=== PATIENT | female | born 1950 | race Caucasian/White ===

== ENCOUNTER 2017-04-30 11:24 | Inpatient (IN) | payer OTHER, BC ==
--- NOTE | 2017-04-30 11:46 | CPEKG ---
Heart Rate: 109 RR Interval: 550 P-R Interval: 160 QRSD Interval: 108 QT Interval: 332 QTC Interval: 448 P [place]: -37 QRS [place]: -62 T Wave [place]: 88 EKG Severity - ABNORMAL ECG - EKG Impression: SINUS TACHYCARDIA EKG Impression: ATRIAL PREMATURE COMPLEX EKG Impression: INCOMPLETE RBBB AND LAFB Electronically Signed By: Basia Palacios 30-Apr-2017 15:20:40
[2017-04-30 11:57] LABS: % IMMATURE GRANULYOCYTES 0.5 % (0.0-1.1); ABSOLUTE IMMATURE GRANULOCYTES 0.07 10^3/uL (0.00-0.10); ADD DIFF? NO; ADD MORPH? NO; ADD SCAN? NO; ATYPICAL LYMPHOCYTE FLAG 0 (0-99); FRAGMENT RBC FLAG 0 (0-99); HEMATOCRIT 45.6 % (38.0-47.0); HEMOGLOBIN 15.6 g/dL (12.6-16.3); LEFT SHIFT FLG 0 (0-99); LIPEMIA HEMOLYSIS FLAG 90 (0-99); MEAN CELL HEMOGLOBIN 30.9 pg (27.9-34.1); MEAN CELL HEMOGLOBIN CONCENTR. 34.2 g/dL (32.4-36.7); MEAN CELL VOLUME 90.3 fL (81.5-99.8); MEAN PLATELET VOLUME 10.6 fL (8.7-11.7); PLATELET CLUMPS FLAG 20 (0-99); PLATELET COUNT 233 10^3/uL (150-400); RED BLOOD CELL COUNT 5.05 10^6/uL (4.18-5.33); RED CELL DISTRIBUTION WIDTH 13.6 % (11.5-15.2)
[2017-04-30 12:10] LABS: ANION GAP 14 mEq/L (8-16); CALCIUM 9.4 mg/dL (8.5-10.4); CARBON DIOXIDE 24 mEq/l (22-31); CHLORIDE 102 mEq/L (97-110); CREATININE 1.5 mg/dL (0.6-1.0); GLOMERULAR FILTRATION RATE 35; GLUCOSE 94 mg/dL (70-100); POTASSIUM 4.3 mEq/L (3.5-5.2); SODIUM 140 mEq/L (134-144)
[2017-04-30 12:33] LABS: TROPONIN I 0.037 ng/mL (0.000-0.034)
--- NOTE | 2017-04-30 13:06 | EDPHY ---
H & P Time Seen by Provider: 04/30/17 12:39 HPI/ROS: CHIEF COMPLAINT: Multiple complaints HISTORY OF PRESENT ILLNESS: Patient is a 67-year-old female who presents emergency department multiple complaints. Patient states her symptoms started approximately 3 weeks ago. She attempts to lift her and developed right lateral/flank pain. It is worse with movement. It is slowly improved. Over the past 3 days is worsened. It is increased with movement. She is unable to bend over. When she bent over she stated she became nauseated and vomited. Of note, the patient reports that her on April 24. Since that time she has had no bowel movement. She has felt as though she has had abdominal discomfort from her "breast to her pelvis. "Last night she had multiple episodes of diarrhea. This did not improve her discomfort. Patient complains of a chronic longstanding headache. She also complains of neck pain. Patient states that when she takes a deep breath she has a sharp pain on the right flank. She has had no dysuria or frequency. No fevers or chills. REVIEW OF SYSTEMS: My complete review of systems is negative except as mentioned in the HPI. Past Medical/Surgical History: Includes renal insufficiency, diabetes, intestinal polyps, ectopic Past surgical history: Includes cholecystectomy, lymph node dissection, tonsillectomy, shoulder surgery Social history: The patient's on April 24. She does not smoke. Smoking Status: Former smoker Physical Exam: Vitals slurred. 37.1. The patient is hypertensive at 170/86. GENERAL: No acute distress, alert. HEENT: Eyes normal to inspection, normal pharynx, no signs of dehydration. NECK: No thyromegaly, no lymphadenopathy, supple. RESPIRATORY: Clear to auscultation bilaterally, no rales, rhonchi or wheezing. CVS: Regular rate and rhythm, no rubs, murmurs, or gallops. No chest wall abnormality. No rash. She does have tenderness palpation over her right lateral ribs. No crepitus. ABDOMEN: Soft, nontender, nondistended, no organomegaly. No abdominal wall abnormality. No rash. BACK: Normal to inspection, no CVA tenderness. SKIN: Normal color, no rash, warm, dry. No pallor. EXTREMITIES: No pedal edema, no calf tenderness, no Homans sign or cords, no joint swelling. NEURO/PSYCH: Alert and oriented, normal mood and affect, normal motor sensory exam. Constitutional: Initial Vital Signs Temperature (C) 37.0 C 04/30/17 11:29 Heart Rate 93 04/30/17 11:29 Respiratory Rate 20 04/30/17 11:29 O2 Sat (%) 88 L 04/30/17 11:29 O2 Delivery Mode Room Air Allergies/Adverse Reactions: Sulfa (Sulfonamide Antibiotics) Allergy (Severe, Verified 11/20/13 16:52) Rash CANDIED FRUIT IN SPUMONI Allergy (Severe, Uncoded 08/28/12 10:14) Other-Enter Comments Home Medications: Medication Instructions Recorded Allopurinol [Allopurinol 300 MG 300 mg PO DAILY 09/11/12 (RX)] Aspirin [Aspirin 81mg (OTC)] 81 mg PO HS 09/11/12 Furosemide [Lasix 20 MG (RX)] 20 mg PO DAILY 09/11/12 Lovastatin [Mevacor] 40 mg PO HS 09/11/12 Nateglinide [Starlix] 60 mg PO TIDMEAL 09/11/12 Cholecalciferol Vit D3 [Vitamin D3 1,000 units PO DAILY 04/30/17 (*)] Cyanocobalamin [Vitamin B12 (*)] 1,000 mcg PO DAILY 04/30/17 Insulin Glargine,Hum.rec.anlog 25 unit SQ DAILY 04/30/17 [Basaglar Kwikpen U-100] Insulin Glargine,Hum.rec.anlog 51 unit SQ HS 04/30/17 [Basaglar Kwikpen U-100] Insulin Lispro [humALOG LISPRO 100 7 - 10 unit SC TIDMEAL 04/30/17 units/ml (*)] Lisinopril [Zestril 2.5 mg (*)] 2.5 mg PO DAILY 04/30/17 Medical Decision Making - Diagnostics Imaging Results: Imaging Impressions Chest X-Ray 04/30/17 13:12 Impression: Bilateral pulmonary vascular prominence, possible early congestive failure or circulating hypervolemia.. ED Course/Re-evaluation: In the emergency department I discussed possible etiologies with the patient. I answered all her questions. IV was placed. Laboratory studies, EKG and chest x-ray were ordered. Patient was given Zofran 4 mg IV for nausea. She was given normal saline 1 L IV for hydration. She was given morphine 4 mg IV for pain. EKG: Sinus tachycardia 109. Incomplete right bundle-branch block and left anterior fascicular block. No ST or T-wave abnormality. Reviewed the patient's laboratory studies. Of note her white count was mildly elevated. She is not anemic. Chemistry panel is unremarkable. Patient's troponin is elevated at 0.37. D-dimer is pending. I discussed the results with the patient. Answered all her questions. I paged the hospitalist service. Chest x-ray: Please refer the dictated report. It is pending at this time. Reviewed the images. A large heart with poor inspiratory effort. No obvious infiltrate. 1335: I discussed case with Dr. Melchor. He accepts the patient to the hospitalist service. The patient was noted to have an elevated D-dimer of greater than 3. Because of this is CT angiogram was ordered. I discussed this plan with Dr. Chavez. Differential Diagnosis: My differential includes but is not limited to zoster, musculoskeletal strain, pneumonia, bronchitis, pulmonary embolus, pleurisy, kidney stone, pyelonephritis , urinary tract infection, small-bowel obstruction, perforation, constipation - Data Points Laboratory Results: Laboratory Results 04/30/17 11:50 04/30/17 11:50 04/30/17 04/30/17 04/30/17 11:50 11:50 11:50 WBC 14.04 10^3/uL H 10^3/uL (3.80-9.50) RBC 5.05 10^6/uL 10^6/uL (4.18-5.33) Hgb 15.6 g/dL g/dL (12.6-16.3) Hct 45.6 % % (38.0-47.0) MCV 90.3 fL fL (81.5-99.8) MCH 30.9 pg pg (27.9-34.1) MCHC 34.2 g/dL g/dL (32.4-36.7) RDW 13.6 % % (11.5-15.2) Plt Count 233 10^3/uL 10^3/uL (150-400) MPV 10.6 fL fL (8.7-11.7) Neut % (Auto) 74.7 % H % (39.3-74.2) Lymph % (Auto) 17.2 % % (15.0-45.0) [place] % (Auto) 7.1 % % (4.5-13.0) Eos % (Auto) 0.1 % L % (0.6-7.6) Baso % (Auto) 0.4 % % (0.3-1.7) Nucleat RBC Rel Count 0.0 % % (0.0-0.2) Absolute Neuts (auto) 10.48 10^3/uL H 10^3/uL (1.70-6.50) Absolute Lymphs (auto) 2.42 10^3/uL 10^3/uL (1.00-3.00) Absolute Monos (auto) 1.00 10^3/uL H 10^3/uL (0.30-0.80) Absolute Eos (auto) 0.01 10^3/uL L 10^3/uL (0.03-0.40) Absolute Basos (auto) 0.06 10^3/uL 10^3/uL (0.02-0.10) Absolute Nucleated RBC 0.00 10^3/uL 10^3/uL (0-0.01) Immature Gran % 0.5 % % (0.0-1.1) Immature Gran # 0.07 10^3/uL 10^3/uL (0.00-0.10) D-Dimer 3.49 ug/mLFEU H ug/mLFEU (0.00-0.50) Sodium 140 mEq/L mEq/L (134-144) Potassium 4.3 mEq/L mEq/L (3.5-5.2) Chloride 102 mEq/L mEq/L (97-110) Carbon Dioxide 24 mEq/l mEq/l (22-31) Anion Gap 14 mEq/L mEq/L (8-16) BUN 18 mg/dL mg/dL (7-23) Creatinine 1.5 mg/dL H mg/dL (0.6-1.0) Estimated GFR 35 Glucose 94 mg/dL mg/dL (70-100) Calcium 9.4 mg/dL mg/dL (8.5-10.4) Troponin I 0.037 ng/mL H ng/mL (0.000-0.034) Specimen Hemolysis Departure - Departure Disposition: Home, Routine, Self-Care Clinical Impression: Right flank pain Chest pain Qualifiers: Chest pain type: other chest pain Qualified Code(s): R07.89 - Other chest pain Condition: Good
[2017-04-30] MEDS ORDERED: IOPAMIDOL (ISOVUE 370) 100 ML BTL IV ONE (15:24)
--- NOTE | 2017-04-30 15:33 | ASMTCMCOM ---
CM Note CM Note Notes: Patient admitted for right flank pain, chest pain, neck pain, abdominal pain, N/V, constipation and diarrhea, and various other symptoms. Per chart review patient reports her symptoms started about 3 weeks ago when she tried to lift her and had right flank pain. Of note, patient's 04/24/17. Pt has a daughter Soina who appears to live locally. Exact DC needs unknown, CM to follow. Date Signed: 04/30/2017 03:33 PM Electronically Signed By:Miracle Mandel RN
[2017-04-30] MEDS ORDERED: hydrALAZINE 20 MG/ML VIAL IVP PRN (16:08)
[2017-04-30] MEDS ORDERED: ACETAMINOPHEN 325 MG TAB PO PRN (16:09)
--- NOTE | 2017-04-30 16:28 | PDGENHP ---
History and Physical - Chief Complaint difficulty taking a deep breath - History of Present Illness This is obese 67 yo female with MMP and poor follow up who is a poor historian who is presented with right rib and flank pain worse with inspiration and difficulty taking a deep breath. This started 3-6 weeks ago and has been progressive. She does not have any substernal chest pain. Her April 24 and she had been taken care of him and due to the she has not followed up for her medical care. 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 Mercado but does not think she has seen him since 2013. Upon review of records it looks like it was diagnosed in 2012. She reports constipation yesterday but take several stool softners last night. She had several episodes of diarrhea. Her LEs are covered in stool and she did not realize this. She reports a hx of Chronic renal failure with unclear etiology. She has been afebrile. She does not have a cough. She is mildly hypoxic. She says she does not use supplemental O2. In the E.D., Cr is 1.5 which is her baseline. Trop is slightly elevated. D- Dimer is elevated. EKG has an incomplete RBBB. CXR shows pulm vascular congestion Most of history obtained from extensive review of chart PMHx: Gout, HLD, Nocturnal Hypoxemia, CRI (baseline 1.5), DM, HTN, HLD, [place] Lymphoma, IDDM, HTN, tubular adenoma at ileocecal valve PSHx: Laparotomy for ectopic , left shoulder surgery, tonsillectomy, cholecystectomy, lymph node dissection Soc Hx: No Tobacco (former tobacco), No ETOH, No Illicit FmHx: NC History Information - Allergies/Home Medication List Allergies/Adverse Reactions: Sulfa (Sulfonamide Antibiotics) Allergy (Severe, Verified 11/20/13 16:52) Rash CANDIED FRUIT IN SPUMONI Allergy (Severe, Uncoded 08/28/12 10:14) Other-Enter Comments Home Medications: Allopurinol [Allopurinol 300 MG (RX)] 300 mg PO DAILY 09/11/12 [Last Taken 04/30] Aspirin [Aspirin 81mg (OTC)] 81 mg PO HS 09/11/12 [Last Taken 04/29/17] Furosemide [Lasix 20 MG (RX)] 20 mg PO DAILY 09/11/12 [Last Taken 04/30/17] Lovastatin [Mevacor] 40 mg PO HS 09/11/12 [Last Taken 04/29/17] Nateglinide [Starlix] 60 mg PO TIDMEAL 09/11/12 [Last Taken 04/30/17] Cholecalciferol Vit D3 [Vitamin D3 (*)] 1,000 units PO DAILY 04/30/17 [Last Taken 04/29/17] Cyanocobalamin [Vitamin B12 (*)] 1,000 mcg PO DAILY 04/30/17 [Last Taken ] Insulin Glargine,Hum.rec.anlog [Basaglar Kwikpen U-100] 25 unit SQ DAILY [Last Taken 04/30/17] Insulin Glargine,Hum.rec.anlog [Basaglar Kwikpen U-100] 51 unit SQ HS 04/30/17 [ Last Taken 04/29/17] Insulin Lispro [humALOG LISPRO 100 units/ml (*)] 7 - 10 unit SC TIDMEAL [Last Taken 04/29/17] Lisinopril [Zestril 2.5 mg (*)] 2.5 mg PO DAILY 04/30/17 [Last Taken 04/30/17] I have personally reviewed and updated: medical history, social history - Social History Smoking Status: Former smoker Review of Systems Review of Systems: ROS: 10pt was reviewed & negative except for what was stated in HPI & below Physical Exam Physical Exam: Temp Pulse Resp BP Pulse Ox 37.2 C 83 11 L 164/96 H 91 L 04/30/17 15:44 04/30/17 15:44 04/30/17 15:44 04/30/17 15:44 04/30/17 15:44 O2 (L/minute) 2 Constitutional: no apparent distress Eyes: PERRL, EOMI Ears, Nose, Mouth, Throat: moist mucous membranes, hearing normal Cardiovascular: regular rate and rhythym, edema (1+), No JVD Respiratory: no respiratory distress, rhonchi Gastrointestinal: normoactive bowel sounds, soft, non-tender abdomen Skin: warm Neurologic: AAOx3 Psychiatric: interacting appropriately, encephalopathic, poor insight, poor memory Lab Data & Imaging Review 04/30/17 11:50 04/30/17 11:50 WBC 14.04 10^3/uL (3.80-9.50) H 04/30/17 11:50 RBC 5.05 10^6/uL (4.18-5.33) 04/30/17 11:50 Hgb 15.6 g/dL (12.6-16.3) 04/30/17 11:50 Hct 45.6 % (38.0-47.0) 04/30/17 11:50 MCV 90.3 fL (81.5-99.8) 04/30/17 11:50 MCH 30.9 pg (27.9-34.1) 04/30/17 11:50 MCHC 34.2 g/dL (32.4-36.7) 04/30/17 11:50 RDW 13.6 % (11.5-15.2) 04/30/17 11:50 Plt Count 233 10^3/uL (150-400) 04/30/17 11:50 MPV 10.6 fL (8.7-11.7) 04/30/17 11:50 Neut % (Auto) 74.7 % (39.3-74.2) H 04/30/17 11:50 Lymph % (Auto) 17.2 % (15.0-45.0) 04/30/17 11:50 [place] % (Auto) 7.1 % (4.5-13.0) 04/30/17 11:50 Eos % (Auto) 0.1 % (0.6-7.6) L 04/30/17 11:50 Baso % (Auto) 0.4 % (0.3-1.7) 04/30/17 11:50 Nucleat RBC Rel Count 0.0 % (0.0-0.2) 04/30/17 11:50 Absolute Neuts (auto) 10.48 10^3/uL (1.70-6.50) H 04/30/17 11:50 Absolute Lymphs (auto) 2.42 10^3/uL (1.00-3.00) 04/30/17 11:50 Absolute Monos (auto) 1.00 10^3/uL (0.30-0.80) H 04/30/17 11:50 Absolute Eos (auto) 0.01 10^3/uL (0.03-0.40) L 04/30/17 11:50 Absolute Basos (auto) 0.06 10^3/uL (0.02-0.10) 04/30/17 11:50 Absolute Nucleated RBC 0.00 10^3/uL (0-0.01) 04/30/17 11:50 Immature Gran % 0.5 % (0.0-1.1) 04/30/17 11:50 Immature Gran # 0.07 10^3/uL (0.00-0.10) 04/30/17 11:50 D-Dimer 3.49 ug/mLFEU (0.00-0.50) H 04/30/17 11:50 Sodium 140 mEq/L (134-144) 04/30/17 11:50 Potassium 4.3 mEq/L (3.5-5.2) 04/30/17 11:50 Chloride 102 mEq/L (97-110) 04/30/17 11:50 Carbon Dioxide 24 mEq/l (22-31) 04/30/17 11:50 Anion Gap 14 mEq/L (8-16) 04/30/17 11:50 BUN 18 mg/dL (7-23) 04/30/17 11:50 Creatinine 1.5 mg/dL (0.6-1.0) H 04/30/17 11:50 Estimated GFR 35 04/30/17 11:50 Glucose 94 mg/dL (70-100) 04/30/17 11:50 Calcium 9.4 mg/dL (8.5-10.4) 04/30/17 11:50 Troponin I 0.037 ng/mL (0.000-0.034) H 04/30/17 11:50 NT-Pro-B Natriuret Pep 1490 pg/mL (0-125) H 04/30/17 11:50 Specimen Hemolysis 04/30/17 11:50 Assessment & Plan Assessment: #Dyspnea/Hypoxemia #Right rib pain #Indeterminate troponin #Volume overload with pulm vascular congestion and pedal edema #Leukocytois #Chronic renal failure at baseline #Hx of NH lymphoma #Hx of tubular adenoma #Diarrhea, medication induced #Encephalopathy, unclear baseline #IDDM, type II #HLD Plan: -Admission, inpatient -She has refused CTA because she reports that she has been told that she should never have one due to her CRF. She has asked me to get in touch with her Obstetrical Tech Dr. Sanchez. I have called them and spoke with Dr. Pruett who recommends that she get the CTA to r/o P.E. Her risk for contrast nephropathy is 14% which is the same risk for a pt who is a diabetic and does not have renal disease. Her risk for needing dialysis due to contrast nephropathy is 0.2% . She is considering getting the scan. -Serial enzymes, check TTE. Hold off on additional cardiac w/u pending results and CTA chest -She needs Lasix. She is stable from a pulm standpoint and low dose will be scheduled after CT scan. She likely will need more Lasix but want to ensure we have a repeat BMP tomorrow morning after CTA is done. A review of her records show that she has been Lasix dependent previously. Unclear if there is a hx of CHF -Leukocytosis noted, no indication for abx for now. UA is pending, ordered by the E.D. she does not have CVA tenderness. She has no urinary sx's. She is afebrile -Home Insulin and ISS. Check A1C -Check other risk factor, lipid panel -Check for C-Diff. No stool softners for now -I have not consulted Onc. She may need consultation inpatient pending results of CTA. -Heparin for DVT proph, pending CTA results -Full Code total time of care is 90 minutes
[2017-04-30] MEDS ORDERED: D50W 25 GM/50 ML SYR IVP PRN (16:42)
--- NOTE | 2017-04-30 17:05 | PDMN ---
Medical Necessity Medical necessity: C/M review: est. > 2 MN LOS for eval and TX of acute and persistent dyspnea, hypoxemia, right rid pain, indeterminate troponin, leukocytosis requiring planned echocardiogram, chest CTA, serial cardiac enzymes, ongoing cardiac monitoring, acute inpt PT/OT, comorbid chronic renal failure at baseline, encephalopathy, insulin dependent diabetes, hyperlipidemia , medication induced diarrhea, hx of non Hodgkins lymphoma, tubular adenoma per 04/30/2017 Hospitalist progress note.
[2017-04-30] MEDS: oxyCODONE IR 5 MG TAB PO PRN ×3 (17:08→23:35)
[2017-04-30] MEDS ORDERED: HEPARIN 10,000 UNIT/10 ML MDV IVP ONE (17:19)
[2017-04-30] MEDS ORDERED: HEPARIN 10,000 UNIT/10 ML MDV IVP PRN (17:19)
[2017-04-30 17:59] LABS: % IMMATURE GRANULYOCYTES 0.4 % (0.0-1.1); ABSOLUTE IMMATURE GRANULOCYTES 0.05 10^3/uL (0.00-0.10); ADD DIFF? NO; ADD MORPH? NO; ADD SCAN? NO; ATYPICAL LYMPHOCYTE FLAG 0 (0-99); FRAGMENT RBC FLAG 0 (0-99); HEMATOCRIT 43.5 % (38.0-47.0); HEMOGLOBIN 14.7 g/dL (12.6-16.3); LEFT SHIFT FLG 0 (0-99); LIPEMIA HEMOLYSIS FLAG 90 (0-99); MEAN CELL HEMOGLOBIN 30.9 pg (27.9-34.1); MEAN CELL HEMOGLOBIN CONCENTR. 33.8 g/dL (32.4-36.7); MEAN CELL VOLUME 91.6 fL (81.5-99.8); MEAN PLATELET VOLUME 10.7 fL (8.7-11.7); PLATELET CLUMPS FLAG 20 (0-99); PLATELET COUNT 226 10^3/uL (150-400); RED BLOOD CELL COUNT 4.75 10^6/uL (4.18-5.33); RED CELL DISTRIBUTION WIDTH 13.5 % (11.5-15.2)
[2017-04-30] MEDS: INSULIN LISPRO 100 UNIT/ML SC SCH (18:35)
[2017-04-30] MEDS: HEPARIN/DEXTROSE 500 ML IV SCH (18:35)
[2017-04-30 18:41] LABS: APTT 29.2 SEC (23.0-38.0); INR 1.09 (0.83-1.16)
[2017-04-30] MEDS: ASPIRIN 81 MG CHEWABLE TAB PO SCH (20:27)
[2017-04-30] MEDS: PRAVASTATIN SODIUM 40 MG TAB PO SCH (20:27)
[2017-04-30] MEDS ORDERED: [UNRECOGNIZED DRUG - OTHER] SQ SCH (21:00)
[2017-04-30] MEDS ORDERED: LOVASTATIN 40 MG PO SCH (21:00)
[2017-04-30] MEDS ORDERED: INSULIN GLARGINE HUM REC ANLOG SQ SCH (21:00)
[2017-04-30] MEDS ORDERED: FUROSEMIDE 20 MG/2 ML VIAL IVP ONE (21:04)
[2017-04-30] MEDS: INSULIN GLARGINE 100 UNITS/ML SYRINGE SC SCH (21:54)
[2017-04-30] MEDS ORDERED: HEPARIN 5,000 UNIT/0.5 ML SYR SC SCH (22:00)
[2017-05-01] MEDS: ONDANSETRON 4 MG/2 ML VIAL IVP PRN ×2 (03:40→14:29)
[2017-05-01] MEDS: oxyCODONE IR 5 MG TAB PO PRN ×2 (03:48→20:55)
[2017-05-01 05:29] LABS: % IMMATURE GRANULYOCYTES 0.7 % (0.0-1.1); ADD DIFF? NO; ADD MORPH? NO; ADD SCAN? NO; ATYPICAL LYMPHOCYTE FLAG 0 (0-99); FRAGMENT RBC FLAG 0 (0-99); HEMATOCRIT 44.3 % (38.0-47.0); HEMOGLOBIN 14.5 g/dL (12.6-16.3); LEFT SHIFT FLG 10 (0-99); LIPEMIA HEMOLYSIS FLAG 80 (0-99); MEAN CELL HEMOGLOBIN 30.7 pg (27.9-34.1); MEAN CELL HEMOGLOBIN CONCENTR. 32.7 g/dL (32.4-36.7); MEAN CELL VOLUME 93.7 fL (81.5-99.8); MEAN PLATELET VOLUME 11.1 fL (8.7-11.7); PLATELET CLUMPS FLAG 0 (0-99); PLATELET COUNT 212 10^3/uL (150-400); RED BLOOD CELL COUNT 4.73 10^6/uL (4.18-5.33); RED CELL DISTRIBUTION WIDTH 13.9 % (11.5-15.2)
[2017-05-01 05:52] LABS: TROPONIN I 0.026 ng/mL (0.000-0.034)
[2017-05-01 06:15] LABS: ANION GAP 16 mEq/L (8-16); CALCIUM 8.5 mg/dL (8.5-10.4); CARBON DIOXIDE 18 mEq/l (22-31); CHLORIDE 103 mEq/L (97-110); CHOLESTEROL 144 mg/dL (140-220); CHOLESTEROL/HDL RATIO 3.06 RATIO (1.00-4.44); CREATININE 1.8 mg/dL (0.6-1.0); GLOMERULAR FILTRATION RATE 28; GLUCOSE 145 mg/dL (70-100); HIGH DENSITY LIPOPROTEIN 47 mg/dL (40-85); LDL/HDL RATIO 1.34 RATIO (1.00-3.22); LOW DENSITY LIPOPROTEIN 63 mg/dL (80-100); NON-HIGH DENSITY LIPOPROTEIN 97 mg/dL (90-129); POTASSIUM 4.3 mEq/L (3.5-5.2); SODIUM 137 mEq/L (134-144); TRIGLYCERIDE 174 mg/dL (35-135); VERY LOW DENSITY LIPOPROTEINS 34 mg/dL (8-25)
[2017-05-01] MEDS: INSULIN LISPRO 100 UNIT/ML SC SCH ×3 (08:24→17:23)
[2017-05-01] MEDS ORDERED: INSULIN GLARGINE HUM REC ANLOG 25 UNIT SQ SCH (09:00)
[2017-05-01] MEDS ORDERED: LISINOPRIL 2.5 MG TAB PO SCH (09:00)
[2017-05-01] MEDS ORDERED: [UNRECOGNIZED DRUG - OTHER] SQ SCH (09:00)
[2017-05-01] MEDS ORDERED: WARFARIN SODIUM 5 MG TAB PO ONE (09:17)
[2017-05-01 09:47] LABS: HEMOGLOBIN A1C 8.8 % (4.0-6.0)
[2017-05-01] MEDS: CYANO/VITAMIN B12 1000 MCG TAB PO SCH (09:52)
[2017-05-01] MEDS: CHOLECALCIFEROL VIT D3 1,000 UNITS TAB PO SCH (09:53)
[2017-05-01] MEDS: ALLOPURINOL 300 MG TAB PO SCH (09:53)
[2017-05-01] MEDS: HEPARIN/DEXTROSE 500 ML IV SCH ×2 (09:56→22:47)
--- NOTE | 2017-05-01 10:54 | ECHO ---
[email or web address] [address] [address] Main: [phone] Fax: Transthoracic Echocardiogram Name: SHARON LLANOS MR#: [id number] Study Date: 05/01/2017 Study Time: 07:46 AM Date of : 1950 Age: 67 year(s) Height: 170.2 cm (67 in.) Weight: 125.19 kg (276 lb.) BSA: 2.32 m2 Gender: Female Examination: Echo Indication: Shortness of breath, CP, Question CHF Image Quality: Contrast: Requested by: Eliceo Chavez BP: 166 mmHg/93 mmHg Heart Rate: Rhythm: Indication: Shortness of breath, CP, Question CHF Procedure 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 Normal global systolic LV function. EF is 65 %. Trivial mitral valve regurgitation. Trivial to mild tricuspid valve regurgitation. Measurements: Chambers Valvular Assessment AV/MV Valvular Assessment TV/PV Normal Normal Normal Name Value Range Name Value Range Name Value Range Ao Sarah (MM): 3.3 cm (2.2 cm-3.7 AV Vmax: 1.75 m/s (1 m/s-1.7 TR Vmax: 3.37 mm/s ( - ) cm) m/s) TR PGmax: 45 mmHg ( - ) IVSd (2D): 1.6 cm (0.6 cm-1.1 AV maxP mmHg ( - ) syst. PAP: 50 mmHg ( - ) cm) LVOT Vmax: 1.10 m/s (0.7 m/s-1.1 PV Vmax: 0.91 m/s (0.6 m/s-0.9 LVDd (2D): 4.6 cm (3.9 cm-5.3 m/s) m/s) cm) MV E Vmax: 1.07 m/s ( - ) PV PGmax: 3 mmHg ( - ) LVDs (2D): 2.9 cm (2.1 cm-4 MV A Vmax: 1.21 m/s ( - ) cm) MV E/A: 0.88 ( - ) LVPWd (2D): 1.2 cm ( - ) LVEF (2D): 65 (>=54 %) Continued Measurements: Chambers Valvular Assessment AV/MV Valvular Assessment TV/PV Name Value Name Value Name Value LADs Lon.6 cm MV E/E' Septal: 18.00 CVP (est.): 5 mmHg LA Area: 21.9 cm2 MV E/E' Lateral: 16.90 LA Volume: 78 ml LA Volume Index: 33.6 ml/m2 Patient: SHARON LLANOS Study Date: 05/01/2017 Page 1 of 2 07:46 AM Findings: Left Ventricle: Normal size left ventricle. Mild concentric LV hypertrophy. Normal global systolic LV function. EF is 65 %. Diastolic dysfunction is present. . Septal wall motion is suggestive of a bundle branch block.. Right Ventricle: Normal size right ventricle. Left Atrium: The left atrium is mildly dilated. Right Atrium: The right atrium is normal in size. Mitral Valve: Mild mitral valve leaflet calcification is present. Trivial mitral valve regurgitation. Aortic Valve: The aortic valve is tri-leaflet. Mild aortic cusp calcification is noted. There is no aortic valve regurgitation. Tricuspid Valve: Trivial to mild tricuspid valve regurgitation. The pulmonary artery pressure is moderately increased. Pulmonic Valve: The pulmonic valve is normal in appearance and function. Aorta: The aorta is normal. Pericardium: No pericardial effusion. There is pericardial fat. Exam Comments: (No Signature Object) Patient: SHARON LLANOS Study Date: 05/01/2017 Page 2 of 2 07:46 AM [id number]
[2017-05-01] MEDS: ALBUTEROL 3 ML DEYVIAL IH PRN (11:14)
[2017-05-01] MEDS: INSULIN GLARGINE 100 UNITS/ML SYRINGE SC SCH ×2 (11:25→22:45)
[2017-05-01] MEDS ORDERED: NS 1,000 ML IV SCH (15:15)
[2017-05-01] MEDS: WARFARIN SODIUM 5 MG TAB PO SCH (16:01)
[2017-05-01 16:05] LABS: COLOR AMBER; LEUKOCYTE ESTERASE,URINE TRACE (NEGATIVE); NITRITE,URINE NEGATIVE (NEGATIVE)
[2017-05-01 16:09] LABS: MUCUS TRACE /lpf (NONE-1+); WBC,URINE 25-50 /hpf (0-3)
--- NOTE | 2017-05-01 17:31 | HOSPPROG ---
Hospitalist Progress Note Assessment/Plan: Assessment: 67-year-old female presents with acute pulmonary embolism secondary to acute deep venous thrombosis resulting in acute hypoxic respiratory failure Plan: 1. Pulmonary embolism. Present on admission, acute, bilateral, secondary to deep venous thrombosis -systemic anticoagulation warranted, heparin drip indicated given her chronic kidney disease -given 10 mg of loading dose Coumadin today, 5 mg thereafter, monitor INR -will require inpatient hospitalization until her INR is therapeutic -she remains substantially symptomatic, continue working with physical therapy 2. Acute hypoxic respiratory failure. Evidenced by SpO2 82% on 5 L nasal cannula, up titrated to 8 L nasal cannula, with symptomatic shortness of breath , labored breathing, secondary to PE -continue treatment for pulmonary embolism -continue high-flow oxygen 3. Deep venous thrombosis. Present on admission, acute, bilateral lower extremities on ultrasound, likely secondary to obesity -continue systemic anticoagulation as above 4. Pleural effusion. Acute, right-sided, likely secondary to IV fluids received in the setting of above, monitor respiratory status closely 5. Atelectasis. Acute, give incentive spirometer 6. Acute encephalopathy. Evidenced by global brain dysfunction characterized as somnolence, poor concentration, all of which are an acute change from her baseline, unclear whether this is secondary to metabolic acidosis versus infection -get urinalysis, urine culture -continue monitor white blood cell count -get procalcitonin to eval for infection -get renal ultrasound to eval for pyelonephritis 7. Metabolic acidosis. Acute, get arterial blood gas to ensure that there is not any significant respiratory component -give trial of IV fluids, normal saline 100 cc/hour, overnight and gauge effect on serum chemistry in a.m. 8. Morbid obesity. BMI 43, increases risk of worsening morbidity and/or mortality 9. Chronic kidney disease stage 3. Serum creatinine level 1.8 and rising, provide some IV normal saline in the setting of recent contrast study, monitor renal function closely Diet. Regular Prophylaxis. High risk patient, on therapeutic heparin Code. Full Disposition. Anticipated discharge uncertain, requiring ongoing IV heparin drip. Subjective: Patient reports of breath with any level of activity, somnolent Objective: Vital Signs Temp Pulse Resp BP Pulse Ox 36.6 C 109 H 17 135/71 H 82 L 05/01/17 12:00 05/01/17 17:25 05/01/17 12:00 05/01/17 12:00 05/01/17 17:25 Laboratory Results 05/01/17 04:30 05/01/17 04:30 04/30/17 05/01/17 05/02/17 05:59 05:59 05:59 Intake Total 400 1118 Output Total 500 650 Balance -100 468 PT 14.0 SEC (12.0-15.0) 04/30/17 17:51 INR 1.09 (0.83-1.16) 04/30/17 17:51 - Physical Exam Constitutional: no apparent distress, chronically ill appearing, obese, uncomfortable Cardiovascular: tachycardia, edema (Trace bilateral lower extremity), No systolic murmur, No irregularly irregular Respiratory: reduced air movement (Poor inspiratory effort), inspiratory crackles (Bilateral bases), No expiratory wheeze, No bronchial breath sounds Neurologic: AAOx3, sensation intact bilaterally, No weakness (Motor strength 5/ 5 bilateral lower extremities) Psychiatric: not anxious, flat affect, other (Concentration 4/7, somnolent but arousable to voice), No agitated ICD10 Worksheet Patient Problems: Problems Problem Status Onset Chest pain Acute Right flank pain Acute
[2017-05-01 18:17] LABS: BICARBONATE 25 mEq/L (22-26); MEASURED OXYGEN SATURATION 91 % (92-95); PCO2 46 mmHg (34-38); PO2 62 mmHg (65-75); TCO2 26 mEq/L (23-27)
[2017-05-01] MEDS ORDERED: NALOXONE HCL 0.4 MG/ML INJ IVP ONE (19:39)
[2017-05-01] MEDS: PRAVASTATIN SODIUM 40 MG TAB PO SCH (20:44)
[2017-05-01] MEDS: ASPIRIN 81 MG CHEWABLE TAB PO SCH (20:44)
[2017-05-02] MEDS: oxyCODONE IR 5 MG TAB PO PRN ×2 (03:45→21:10)
[2017-05-02] MEDS: ALBUTEROL 3 ML DEYVIAL IH PRN (04:12)
[2017-05-02 04:41] LABS: % IMMATURE GRANULYOCYTES 0.5 % (0.0-1.1); ABSOLUTE IMMATURE GRANULOCYTES 0.06 10^3/uL (0.00-0.10); ADD DIFF? NO; ADD MORPH? NO; ADD SCAN? NO; ATYPICAL LYMPHOCYTE FLAG 10 (0-99); FRAGMENT RBC FLAG 0 (0-99); HEMATOCRIT 39.2 % (38.0-47.0); LEFT SHIFT FLG 0 (0-99); LIPEMIA HEMOLYSIS FLAG 80 (0-99); MEAN CELL HEMOGLOBIN 30.5 pg (27.9-34.1); MEAN CELL HEMOGLOBIN CONCENTR. 33.2 g/dL (32.4-36.7); MEAN PLATELET VOLUME 10.9 fL (8.7-11.7); PLATELET CLUMPS FLAG 0 (0-99); PLATELET COUNT 215 10^3/uL (150-400); RED BLOOD CELL COUNT 4.26 10^6/uL (4.18-5.33); RED CELL DISTRIBUTION WIDTH 13.9 % (11.5-15.2)
[2017-05-02 05:10] LABS: INR 1.16 (0.83-1.16); PROTIME(PATIENT) 14.8 SEC (12.0-15.0)
[2017-05-02 05:25] LABS: ANION GAP 12 mEq/L (8-16); CALCIUM 8.4 mg/dL (8.5-10.4); CARBON DIOXIDE 24 mEq/l (22-31); CHLORIDE 99 mEq/L (97-110); CREATININE 1.9 mg/dL (0.6-1.0); GLOMERULAR FILTRATION RATE 26; GLUCOSE 169 mg/dL (70-100); POTASSIUM 4.4 mEq/L (3.5-5.2); SODIUM 135 mEq/L (134-144)
[2017-05-02 05:50] LABS: PROCALCITONIN 0.56 ng/mL (0.02-0.10)
[2017-05-02] MEDS ORDERED: CARVEDILOL 3.125 MG TAB PO ONE (09:03)
[2017-05-02] MEDS: INSULIN LISPRO 100 UNIT/ML SC SCH ×3 (09:27→17:01)
[2017-05-02] MEDS: INSULIN GLARGINE 100 UNITS/ML SYRINGE SC SCH ×2 (09:28→21:11)
[2017-05-02] MEDS ORDERED: FUROSEMIDE 100 MG/10 ML VIAL IVP ONE (09:29)
[2017-05-02] MEDS: CHOLECALCIFEROL VIT D3 1,000 UNITS TAB PO SCH (09:29)
[2017-05-02] MEDS: CYANO/VITAMIN B12 1000 MCG TAB PO SCH (09:30)
[2017-05-02] MEDS: ALLOPURINOL 300 MG TAB PO SCH (09:30)
[2017-05-02] MEDS ORDERED: FUROSEMIDE 80 MG in D5W 50 ML IV ONE (09:45)
[2017-05-02] MEDS: HEPARIN/DEXTROSE 500 ML IV SCH (12:18)
--- NOTE | 2017-05-02 14:52 | HOSPPROG ---
Hospitalist Progress Note Assessment/Plan: Assessment: 67-year-old female presents with acute pulmonary embolism secondary to acute deep venous thrombosis resulting in acute hypoxic respiratory failure c/b UTI Plan: 1. Pulmonary embolism. Present on admission, acute, bilateral, secondary to deep venous thrombosis -systemic anticoagulation warranted, heparin drip indicated given her chronic kidney disease -cont coumadin 5mg daily, monitor INR -will require inpatient hospitalization until her INR is therapeutic -she remains substantially symptomatic, continue working with physical therapy 2. Acute hypoxic respiratory failure. Evidenced by SpO2 82% on 5 L nasal cannula, up titrated to 8 L nasal cannula, with symptomatic shortness of breath , labored breathing, secondary to PE -continue treatment for pulmonary embolism -continue high-flow oxygen at 5LPM 3. Deep venous thrombosis. Present on admission, acute, bilateral lower extremities on ultrasound, likely secondary to obesity -continue systemic anticoagulation as above 4. Pleural effusion and acute diastolic CHF exacerbation. Acute worsening, new problem, further w/u indicated. CXR w/ increase in size (personally interpreted) , right-sided, likely secondary to IV fluids received in the setting of JOHNNY, monitor respiratory status closely -d/w Dr. Juarez, he recommends lasix 80mg IV now, monitor strict I/O -Echo w/ preserved EF, LVH, mod increased pulm pressure 5. Atelectasis. Acute, given incentive spirometer 6. Acute encephalopathy. Resolved s/p IV Abx, likely 2/2 toxic effects of infxn , ABG w/o significant hypercapnea 7. Metabolic acidosis. Acute, resolved 8. Morbid obesity. BMI 43, increases risk of worsening morbidity and/or mortality 9. JOHNNY on Chronic kidney disease stage 3. Serum creatinine level 1.9 and rising , baseline Cr 1.3-1.7 -appreciate Dr. Juarez's consultation -stopped IVF s/p 2.5L intake, given 80 IV lasix 10. UTI. Acute, POA, UA positive + leukocytosis + abd sx -D#2/5 CTX -monitor UCx/BCx Diet. Regular Prophylaxis. High risk patient, on therapeutic heparin Code. Full Disposition. Anticipated discharge uncertain, requiring ongoing IV heparin drip. High-level of medical complexity, high risk for worsening morbidity and/or mortality secondary to the issues outlined above. Subjective: patient more alert today, ongoing SOB w/ any activity, ongoing nausea Objective: Vital Signs Temp Pulse Resp BP Pulse Ox 37.6 C 75 13 166/77 H 95 05/02/17 12:00 05/02/17 12:00 05/02/17 12:00 05/02/17 12:00 05/02/17 12:00 Laboratory Results 05/02/17 04:15 05/01/17 05/02/17 05/03/17 05:59 05:59 05:59 Intake Total 400 3948 Output Total 500 1350 Balance -100 2598 PT 14.8 SEC (12.0-15.0) 05/02/17 04:15 INR 1.16 (0.83-1.16) 05/02/17 04:15 - Physical Exam Constitutional: no apparent distress, chronically ill appearing, obese, uncomfortable Cardiovascular: edema (trace bilat LE), No systolic murmur, No irregularly irregular, No tachycardia Respiratory: reduced air movement (R base), inspiratory crackles (mid posterior segs), other (+ aegophony R base), No expiratory wheeze, No bronchial breath sounds Gastrointestinal: normoactive bowel sounds, soft, non-tender abdomen, no palpable masses, No distension Neurologic: AAOx3, sensation intact bilaterally, No weakness (motor 5/5 bilat LE ) Psychiatric: interacting appropriately, not anxious, not encephalopathic, thought process linear ICD10 Worksheet Patient Problems: Problems Problem Status Onset Chest pain Acute Right flank pain Acute
[2017-05-02 15:11] LABS: EOSINOPHIL STAIN LOT NUMBER 519210; EOSMR EOSINOPHILS NO EOS SEEN (NO EOS SEEN)
[2017-05-02] MEDS: WARFARIN SODIUM 5 MG TAB PO SCH (15:32)
--- NOTE | 2017-05-02 15:37 | ASMTCMCOM ---
CM Note CM Note Notes: 05/02/2017 Case Management Note Case Management met w/pt and friend Geovani. Pt is recent . [place] approximately 2 weeks ago. Pt daughter Cinthia works at [employer] and can be reached at [phone]. Daughter Sonia lives in [place] [phone]. Daughter in law works as supervisor offset plate preparation at [employer] in [place]. PT requested referral to [place]. She anticipates that daughter Sonia will drive her to [place] at d/c. Discussed prohibitive cost of medical transport to [place]. Faxed referral to [facility] as well in case [place] does not accept patient. Phone call from [place] notifying of receipt of referral. Case Management d/c poc: To SNF rehab pending acceptance when medically stable. Case Management to follow. Date Signed: 05/02/2017 03:36 PM Electronically Signed By:Mariama Tillman RN
[2017-05-02 15:57] LABS: ANION GAP 10 mEq/L (8-16); CALCIUM 8.6 mg/dL (8.5-10.4); CARBON DIOXIDE 25 mEq/l (22-31); CHLORIDE 96 mEq/L (97-110); CREATININE 1.7 mg/dL (0.6-1.0); GLOMERULAR FILTRATION RATE 30; GLUCOSE 225 mg/dL (70-100); POTASSIUM 4.7 mEq/L (3.5-5.2); SODIUM 131 mEq/L (134-144)
[2017-05-02] MEDS: CARVEDILOL 3.125 MG TAB PO SCH (17:00)
[2017-05-02 19:42] LABS: ANION GAP 11 mEq/L (8-16); CALCIUM 8.5 mg/dL (8.5-10.4); CARBON DIOXIDE 23 mEq/l (22-31); CHLORIDE 96 mEq/L (97-110); CREATININE 1.8 mg/dL (0.6-1.0); GLOMERULAR FILTRATION RATE 28; GLUCOSE 221 mg/dL (70-100); POTASSIUM 4.5 mEq/L (3.5-5.2); SODIUM 130 mEq/L (134-144)
--- NOTE | 2017-05-02 21:08 | GCON ---
[f rep st] CONSULTATION NEPHROLOGY CONSULTATION DATE OF CONSULTATION: 05/02/2017 REASON FOR CONSULTATION: Acute kidney injury on chronic kidney disease. HISTORY OF PRESENT ILLNESS: This is a pleasant 67-year-old female with a past medical history signif icant for acute kidney injury, chronic kidney disease, diabetes, hypertension, and history of non-Hod gkin's lymphoma, who now presents with DVTs, thromboembolism, and acute kidney injury. History is ob tained from the patient, who is a good historian, along with the electronic medical record. The anamika ent is cared for by my partner, Dr. Haylee Sanchez, related to her chronic kidney disease. Appears that her baseline creatinine is in the mid 1s. The patient has had some notable recent issues. First, she did lose her approximately 1 week ago, and is clearly still grieving this event. She did present with rib and flank pain that was ple uritic in nature. She states that it started 3-6 weeks ago, and has been progressively worsening. S he also had approximately 2 days of fairly severe diarrhea. The patient presented to the emergency r oom, where there were concerns for potential thromboembolic disease. The patient did have bilateral DVTs noted on duplex ultrasound, and CT angiogram showed multiple bilateral pulmonary emboli. The pa tient was placed on anticoagulation. Appropriate concerns were taken related to the potential use of contrast in the face of her chronic kidney disease, but it was believed to be in her best interest t o proceed with the contrast study. Since her admission, she has received significant IV fluids. Yesterday's intake and output were appr oximately 4 L in and 1,400 mL out. As of today, her systolic blood pressure is 200, she is requiring oxygen, and her chest x-ray does show congestive heart failure. There have been concerns for oligur ia, but I am having some difficulty interpreting the medical record relating to this. Presently, the patient is quite comfortable. She denies any acute distress, and she is saturating ad equately on nasal cannula. She is not feeling dyspneic. In 2011, the patient presented with severe renal failure requiring short-term dialysis. A renal biop sy was obtained, which showed a vascular ATN. She recovered, and ultimately her creatinine at that t dain was in the low 1s. The patient states that her blood pressure has been under good control. Othe r medical issues including diabetes also seem to have been managed reasonably well. The patient has been maintained on AMELIA inhibition. As relating to the above issues, we are asked by Dr. Cabrera to assist with her renal diagnosis and adilson perales. PAST MEDICAL HISTORY: 1. History of acute kidney injury requiring dialysis in 2011. 2. Chronic kidney disease. Followed by Dr. Haylee Sanchez of [facility]. 3. Gout. 4. Diabetes mellitus. 5. Nocturnal hypoxemia. 6. Hypertension. 7. Non-Hodgkin's lymphoma. 8. History of tubular adenoma of the colon at the ileocecal valve. PAST SURGICAL HISTORY: 1. Laparotomy for ectopic . 2. Left shoulder surgery. 3. Tonsillectomy. 4. Cholecystectomy. 5. Lymph node dissection. MEDICATIONS: Allopurinol 3 mg daily. Aspirin 81 mg daily. Lasix 20 mg daily. Lovastatin 40 mg rod ly. Starlix 60 mg t.i.d. times daily. Cholecalciferol 1,000 units daily. Vitamin B12 daily. Lantu s insulin as prescribed. Glargine insulin as prescribed. Lispro insulin as prescribed. Zestril 2.5 mg daily. FAMILY HISTORY: Noncontributory. SOCIAL HISTORY: The patient is originally from [place]. She is recently . 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 She also worked for [email or web address]. She has 3 children. Some lives in the area. She has a remote smoking history. She only very rarely drinks alcohol. REVIEW OF SYSTEMS: GENERAL: The patient denies fevers, chills, or sweats. She was having a headach e yesterday, but it is gone. HEENT: She does have cataracts and a detached retina. I cannot get a specific history of diabetic retinopathy. She has had some chronic rhinitis. She has a sore throat. LUNGS: She has had some shortness of breath and right posterior thoracic pain on deep inspiration. She denies left-sided chest pain. CARDIAC: She has coronary calcifications, but no known history of coronary artery disease. ABDOMEN: She denies overt abdominal pain. She did have diarrhea for 2 days prior to this admission. She has a history of a tubular adenoma. : She denies dysuria. EXT REMITIES: She has some chronic lower extremity edema. NEURO: She has neuropathy in her feet. SKIN : She denies skin rashes or skin lesions. ENDOCRINE: She denies a history of thyroid disease. PHYSICAL EXAM: GENERAL: At the time of exam, the patient is appropriate and alert. VITAL SIGNS: T emperature 38.1, pulse 94, blood pressure 202/81. HEENT: Eyes sclerae clear. Oropharynx clear. NE CK: Obese. I had a difficult time assessing jugular venous distention. No thyromegaly is noted. L UNGS: Diminished at the bases. CARDIOVASCULAR: Soft heart sounds, regular rate and rhythm. ABDOME N: Obese, nontender. /RECTAL: Deferred. EXTREMITIES 1 to 2+ bilateral lower extremity edema. I NTEGUMENT: Generally clear. NEURO: Notable for her neuropathy in her feet. LABORATORY STUDIES: White count 11.8, hematocrit 39.2, platelets 215, sodium 135, potassium 4.4, bic arb 24, creatinine 1.9. Urinalysis notable for 25-50 white blood cells per high-power field. IMPRESSION AND PLAN: 1. Acute kidney injury on chronic kidney disease. The patient presented at her baseline creatinine. She did receive a contrast load at a time she likely was somewhat dehydrated relating to her diarrh ea. She has had an increase in her creatinine in spite of liberal volume administration. At this po int, she is comfortable, although she is hypertensive and somewhat volume overloaded. We will go ahe ad and challenge with diuretics at this point. I will place her on a renal diet. Her renal ultrasou nd did not show evidence of obstruction. She did have significant urine output yesterday. We will f ollow her urine output today. I am hopeful that she will plateau, respond to diuretics, and then alethea w improvement in her renal function back to baseline. I did advise her that occasionally we do see p rolonged episodes of renal failure with contrast, and she could require an interim course of hemodial ysis prior to recovery. We will continue to monitor on a serial basis. 2. Hypertension. The patient will first receive diuretics. If her blood pressure does not improve, we will add a calcium channel jazmine. 3. Pyuria. She is asymptomatic at the present time, and I will not treat this. We will check urine for eosinophils. 4. Diabetes. This will be controlled with sliding scale insulin. 5. Pulmonary emboli. This will need further evaluation as to whether this is a paraneoplastic proce ss, or whether she does have lymphadenopathy that could be obstructing venous outflow. Her oncologis t is Dr. Mercado. Thank you for allowing me to participate in this lady's care. We will continue to follow along close ly with you. Copy requested to: Haylee Sanchez MD [facility] /[id number]/MODL
[2017-05-02] MEDS: ASPIRIN 81 MG CHEWABLE TAB PO SCH (21:11)
[2017-05-02] MEDS: PRAVASTATIN SODIUM 40 MG TAB PO SCH (21:11)
[2017-05-03] MEDS: ONDANSETRON DISINTEGRATING 4 MG TAB PO PRN ×4 (04:21→20:45)
[2017-05-03 05:37] LABS: % IMMATURE GRANULYOCYTES 0.6 % (0.0-1.1); ABSOLUTE IMMATURE GRANULOCYTES 0.06 10^3/uL (0.00-0.10); ADD DIFF? NO; ADD MORPH? NO; ADD SCAN? NO; ATYPICAL LYMPHOCYTE FLAG 0 (0-99); FRAGMENT RBC FLAG 0 (0-99); HEMATOCRIT 35.9 % (38.0-47.0); LEFT SHIFT FLG 10 (0-99); LIPEMIA HEMOLYSIS FLAG 80 (0-99); MEAN CELL HEMOGLOBIN 30.7 pg (27.9-34.1); MEAN CELL HEMOGLOBIN CONCENTR. 33.4 g/dL (32.4-36.7); MEAN CELL VOLUME 91.8 fL (81.5-99.8); MEAN PLATELET VOLUME 11.3 fL (8.7-11.7); PLATELET CLUMPS FLAG 0 (0-99); PLATELET COUNT 223 10^3/uL (150-400); RED BLOOD CELL COUNT 3.91 10^6/uL (4.18-5.33); RED CELL DISTRIBUTION WIDTH 13.6 % (11.5-15.2)
[2017-05-03 05:57] LABS: INR 1.26 (0.83-1.16); PROTIME(PATIENT) 15.8 SEC (12.0-15.0)
[2017-05-03] MEDS: oxyCODONE IR 5 MG TAB PO PRN ×3 (07:23→20:46)
[2017-05-03] MEDS: ALLOPURINOL 300 MG TAB PO SCH (08:15)
[2017-05-03] MEDS: CARVEDILOL 3.125 MG TAB PO SCH (08:15)
[2017-05-03] MEDS: CHOLECALCIFEROL VIT D3 1,000 UNITS TAB PO SCH (08:15)
[2017-05-03] MEDS: CYANO/VITAMIN B12 1000 MCG TAB PO SCH (08:15)
[2017-05-03] MEDS: INSULIN LISPRO 100 UNIT/ML SC SCH ×3 (08:16→17:40)
[2017-05-03] MEDS: INSULIN GLARGINE 100 UNITS/ML SYRINGE SC SCH ×2 (08:20→21:26)
--- NOTE | 2017-05-03 12:41 | SOAPPROG ---
SOAP Progress Note Assessment/Plan: Assessment: 1. arf/crf: creat actually not far from typical b/l, stable with good uo. Will follow conservatively, try to diurese somewhat gingerly. Would cont to hold acei , though if creat remains stable and bp elevated could probably resume. 2. Volume: remains up but essentially net even past 24hrs. Will start scheduled lasix. 3. Htn: improved but still elevated, now on coreg. Diurese as above, consider adding back acei if remains elevated and creat stable. 4. dvt/pe: on anticoag. Plan: 05/03/17 12:36 Subjective: Breathing better. Remains tearful. Objective: Vital Signs Temp Pulse Resp BP Pulse Ox 37.1 C 75 16 170/75 H 89 L 05/03/17 11:55 05/03/17 11:55 05/03/17 11:55 05/03/17 11:55 05/03/17 11:55 Microbiology 05/01/17 16:10 Urine Culture - Final Urine,Clean Catch Four [place] Types Laboratory Results 05/03/17 04:02 05/02/17 05/03/17 05/04/17 05:59 05:59 05:59 Intake Total 3948 2486 300 Output Total 1350 2100 400 Balance 2598 386 -100 PT 15.8 SEC (12.0-15.0) H 05/03/17 04:02 INR 1.26 (0.83-1.16) H 05/03/17 04:02 Physical Exam - Physical Exam General Appearance: no apparent distress Respiratory: decreased breath sounds (R base) Cardiac/Chest: regular rate, rhythm Extremities: pedal edema ICD10 Worksheet Patient Problems: Problems Problem Status Onset Chest pain Acute Right flank pain Acute
[2017-05-03] MEDS: HEPARIN/DEXTROSE 500 ML IV SCH (13:06)
[2017-05-03] MEDS: FUROSEMIDE 40 MG/4 ML VIAL IVP SCH (13:49)
[2017-05-03 14:21] LABS: ANION GAP 6 mEq/L (8-16); CARBON DIOXIDE 32 mEq/l (22-31); CHLORIDE 95 mEq/L (97-110); CREATININE 1.5 mg/dL (0.6-1.0); GLOMERULAR FILTRATION RATE 35; GLUCOSE 201 mg/dL (70-100); POTASSIUM 4.3 mEq/L (3.5-5.2); SODIUM 133 mEq/L (134-144)
--- NOTE | 2017-05-03 14:43 | ASMTCMCOM ---
CM Note CM Note Notes: CM had a lengthy family meeting w/ daughters, Sonia and Cinthia alongside pt. Pt could not come to a decision regarding dispo plan. Sonia has expressed that she would like pt to be in [place] to be closer to her. Both daughters agreed that it is unsafe to have pt returning home. CM informed pt that other option would be 24hr supervision with home care but the recommendation from therapy is SNF. Cinthia informed CM that family cannot afford 24hr supervision. Pt and daughters would like CM to make other referrals to the [facility] SNFs. CM made a referral to [facility], [facility], [facility], [facility] and [facility]. CM notified Cinthia of the referrals made. CM has been in touch w/ [facility] and they are still in the process of reviewing the referral. CM will touch base w/ pt and daughters tomorrow. CM to follow. Date Signed: 05/03/2017 02:42 PM Electronically Signed By:GARETT Wong
[2017-05-03] MEDS: WARFARIN SODIUM 7.5 MG TAB PO SCH (15:06)
--- NOTE | 2017-05-03 17:06 | HOSPPROG ---
Hospitalist Progress Note Assessment/Plan: Assessment: 67-year-old female presents with acute pulmonary embolism secondary to acute deep venous thrombosis resulting in acute hypoxic respiratory failure c/b UTI and JOHNNY on CKD Stage III Plan: 1. Pulmonary embolism. Present on admission, acute, bilateral, secondary to deep venous thrombosis -systemic anticoagulation warranted, heparin drip indicated given her chronic kidney disease -increase coumadin 7.5mg daily, monitor INR -will require inpatient hospitalization until her INR is therapeutic -counseled that she will likely require SNF, will involve her closely in all decision making w/ case mgmt 2. Acute hypoxic respiratory failure. Evidenced by SpO2 82% on 5 L nasal cannula, up titrated to 8 L nasal cannula, with symptomatic shortness of breath , labored breathing, secondary to PE -continue treatment for pulmonary embolism -continue high-flow oxygen at 5LPM 3. Deep venous thrombosis. Present on admission, acute, bilateral lower extremities on ultrasound, likely secondary to obesity -continue systemic anticoagulation as above 4. Pleural effusion and acute diastolic CHF exacerbation. R>L, 2/2 IVF -d/w Dr. Leahy, he recommends lasix 40mg IV bid, monitor strict I/O -Echo w/ preserved EF, LVH, mod increased pulm pressure 5. Atelectasis. Acute, given incentive spirometer 6. Acute encephalopathy. Resolved s/p IV Abx, likely 2/2 toxic effects of infxn , ABG w/o significant hypercapnea 7. Metabolic acidosis. Acute, resolved 8. Morbid obesity. BMI 43, increases risk of worsening morbidity and/or mortality 9. JOHNNY on Chronic kidney disease stage 3. Serum creatinine level peaked at 1.9 , baseline Cr 1.3-1.7 -appreciate Dr. Leahy's consult -monitor strict I/O, weights, Cr -diuresing to improve cardiac output and renal perfusion 10. UTI. Acute, POA, UA positive + leukocytosis + abd sx -D#2/3 CTX -monitor UCx for speciation Diet. Regular Prophylaxis. High risk patient, on therapeutic heparin Code. Full Disposition. Anticipated discharge uncertain, requiring ongoing IV heparin drip. Subjective: patient upset about presentation of placement options on day prior, counseled about placement, patient involvement, daughter involvement Objective: Vital Signs Temp Pulse Resp BP Pulse Ox 37.1 C 71 14 166/94 H 90 L 05/03/17 16:00 05/03/17 16:00 05/03/17 16:00 05/03/17 16:00 05/03/17 16:00 Microbiology 05/01/17 16:10 Urine Culture - Final Urine,Clean Catch Four [place] Types Laboratory Results 05/03/17 04:02 05/03/17 12:20 05/02/17 05/03/17 05/04/17 05:59 05:59 05:59 Intake Total 3948 2486 300 Output Total 1350 2100 1100 Balance 2598 386 -800 PT 15.8 SEC (12.0-15.0) H 05/03/17 04:02 INR 1.26 (0.83-1.16) H 05/03/17 04:02 - Time Spent With Patient Time Spent with Patient: greater than 35 minutes Time Spent with Patient: Greater than 35 minutes spent on this patients care, greater than 50% of time spent counseling, educating, and coordinating care regarding the above mentioned plan. - Physical Exam Constitutional: not in pain, chronically ill appearing, obese, No uncomfortable Cardiovascular: regular rate and rhythym, no murmur, rub, or gallop, edema ( trace bilat LE), No irregularly irregular, No tachycardia Respiratory: reduced air movement (bilat bases, R>L), inspiratory crackles, No expiratory wheeze, No bronchial breath sounds Gastrointestinal: normoactive bowel sounds, soft, non-tender abdomen, no palpable masses Neurologic: AAOx3 Psychiatric: thought process linear, flat affect, No anxious, No agitated ICD10 Worksheet Patient Problems: Problems Problem Status Onset Chest pain Acute Right flank pain Acute
[2017-05-03] MEDS ORDERED: BISACODYL 10 MG SUPP PR PRN (17:10)
[2017-05-03] MEDS ORDERED: LACTULOSE 20 GM/30 ML UDCUP PO PRN (17:10)
[2017-05-03] MEDS: CARVEDILOL 6.25 MG TAB PO SCH (17:42)
[2017-05-03] MEDS: SENNOSIDES/DOCUSATE SODIUM TAB PO SCH (20:37)
[2017-05-03] MEDS: ASPIRIN 81 MG CHEWABLE TAB PO SCH ×2 (20:37→20:46)
[2017-05-03] MEDS: PRAVASTATIN SODIUM 40 MG TAB PO SCH (20:37)
[2017-05-03] MEDS: POLYETHYLENE GLYCOL 3350 17 GM PKT PO PRN (20:46)
[2017-05-04] MEDS: ONDANSETRON DISINTEGRATING 4 MG TAB PO PRN ×2 (05:17→21:28)
[2017-05-04 05:35] LABS: % IMMATURE GRANULYOCYTES 0.4 % (0.0-1.1); ABSOLUTE IMMATURE GRANULOCYTES 0.04 10^3/uL (0.00-0.10); ADD DIFF? NO; ADD MORPH? NO; ADD SCAN? NO; ATYPICAL LYMPHOCYTE FLAG 10 (0-99); FRAGMENT RBC FLAG 0 (0-99); HEMOGLOBIN 11.7 g/dL (12.6-16.3); LEFT SHIFT FLG 0 (0-99); LIPEMIA HEMOLYSIS FLAG 80 (0-99); MEAN CELL HEMOGLOBIN 30.7 pg (27.9-34.1); MEAN CELL HEMOGLOBIN CONCENTR. 33.4 g/dL (32.4-36.7); MEAN CELL VOLUME 91.9 fL (81.5-99.8); MEAN PLATELET VOLUME 11.2 fL (8.7-11.7); PLATELET CLUMPS FLAG 0 (0-99); PLATELET COUNT 228 10^3/uL (150-400); RED BLOOD CELL COUNT 3.81 10^6/uL (4.18-5.33); RED CELL DISTRIBUTION WIDTH 13.4 % (11.5-15.2)
[2017-05-04 05:46] LABS: INR 1.34 (0.83-1.16); PROTIME(PATIENT) 16.6 SEC (12.0-15.0)
[2017-05-04 06:32] LABS: ALBUMIN 2.8 g/dL (3.5-5.0); ANION GAP 10 mEq/L (8-16); CALCIUM 8.5 mg/dL (8.5-10.4); CARBON DIOXIDE 27 mEq/l (22-31); CHLORIDE 97 mEq/L (97-110); CREATININE 1.6 mg/dL (0.6-1.0); GLOMERULAR FILTRATION RATE 32; GLUCOSE 193 mg/dL (70-100); SODIUM 134 mEq/L (134-144)
[2017-05-04] MEDS ORDERED: WARFARIN SODIUM 2.5 MG TAB PO ONE ×2 (08:12→16:00)
[2017-05-04] MEDS: FUROSEMIDE 40 MG/4 ML VIAL IVP SCH ×2 (08:24→15:07)
[2017-05-04] MEDS: INSULIN LISPRO 100 UNIT/ML SC SCH ×3 (08:25→18:18)
[2017-05-04] MEDS: ALLOPURINOL 300 MG TAB PO SCH (08:38)
[2017-05-04] MEDS: CHOLECALCIFEROL VIT D3 1,000 UNITS TAB PO SCH (08:38)
[2017-05-04] MEDS: CARVEDILOL 6.25 MG TAB PO SCH ×2 (08:38→18:28)
[2017-05-04] MEDS: POLYETHYLENE GLYCOL 3350 17 GM PKT PO PRN (08:39)
[2017-05-04] MEDS: CYANO/VITAMIN B12 1000 MCG TAB PO SCH (08:39)
[2017-05-04] MEDS: SENNOSIDES/DOCUSATE SODIUM TAB PO SCH ×2 (08:40→21:20)
[2017-05-04] MEDS: INSULIN GLARGINE 100 UNITS/ML SYRINGE SC SCH ×2 (08:40→21:31)
--- NOTE | 2017-05-04 09:39 | SOAPPROG ---
SOAP Progress Note Assessment/Plan: Assessment/Plan: CKD 3: pt is relatively at her baseline of Cr of 1.4-1.7, currently 1.6. - Will continue to monitor. - Avoid hypotension and nephrotoxins. HTN: remains high, on Lasix and carvedilol. Will restart low dose lisinopril and continue to monitor. Hypervolemia: responding well to Lasix, will continue for now. Subjective: No acute events overnight. Pt states that she is doing better overall, breathing is more comfortable and no longer having pain in her R side. She does note having some nausea with walking around. She states that she is urinating well. ROS: positive per HPI, rest of 10-point ROS negative Objective: Vital Signs Temp Pulse Resp BP Pulse Ox 36.7 C 62 20 161/84 H 93 05/04/17 08:00 05/04/17 08:38 05/04/17 08:00 05/04/17 08:38 05/04/17 08:00 Microbiology 05/01/17 16:10 Urine Culture - Final Urine,Clean Catch Four [place] Types Laboratory Results 05/04/17 04:09 05/04/17 04:09 05/03/17 05/04/17 05/05/17 05:59 05:59 05:59 Intake Total 2486 1281 Output Total 2100 2000 900 Balance 789 -679 900 PT 16.6 SEC (12.0-15.0) H 05/04/17 04:09 INR 1.34 (0.83-1.16) H 05/04/17 04:09 General: alert and oriented, no acute distress Eyes; EOMI, PERRL OP: Clear CV: RRR Resp: nonlabored respirations on 3L NC Abd: Soft, NT/ND Ext: trace edema BLE Neuro: CN II-XII grossly intact, no asterixis Psych: cooperative, appropriate mood and affect ICD10 Worksheet Patient Problems: Problems Problem Status Onset Chest pain Acute Right flank pain Acute
[2017-05-04] MEDS: LISINOPRIL 2.5 MG TAB PO SCH (09:53)
[2017-05-04] MEDS: HEPARIN/DEXTROSE 500 ML IV SCH (14:18)
[2017-05-04] MEDS: WARFARIN SODIUM 7.5 MG TAB PO SCH (15:09)
--- NOTE | 2017-05-04 16:19 | ASMTCMCOM ---
CM Note CM Note Notes: CM spoke w/ daughterSonia on the phone. She reports that pt cannot make a decision regarding dispo planning until she speaks w/ [employer] and ideally sign up for Medicaid. Pt reports that her Medicare is "running out". CM contacted [facility] and she will meet w/ pt. [facility] accepted [facility]. CM informed daughter and pt of this information. CM to follow. Date Signed: 05/04/2017 04:19 PM Electronically Signed By:GARETT Wong
--- NOTE | 2017-05-04 17:11 | HOSPPROG ---
Hospitalist Progress Note Assessment/Plan: Assessment: 67-year-old female presents with acute pulmonary embolism secondary to acute deep venous thrombosis resulting in acute hypoxic respiratory failure c/b UTI and JOHNNY on CKD Stage III Plan: 1. Pulmonary embolism. Present on admission, acute, bilateral, secondary to deep venous thrombosis -systemic anticoagulation warranted, heparin drip indicated given her chronic kidney disease -increased coumadin 10mg today, continue to alternate w/ doses of 7.5 -monitor INR daily -will require inpatient hospitalization until her INR is therapeutic -counseled that she will likely require SNF, will involve her closely in all decision making w/ case mgmt 2. Acute hypoxic respiratory failure. Secondary to PE -continue treatment for pulmonary embolism -on 3L NC, will require at discharge 3. Deep venous thrombosis. Present on admission, acute, bilateral lower extremities on ultrasound, likely secondary to obesity -continue systemic anticoagulation as above 4. Pleural effusion and acute diastolic CHF exacerbation. R>L, 2/2 IVF, Echo w/ preserved EF, LVH, mod increased pulm pressure -d/w Dr. Srivastava, she recommends ongoing lasix and adding lisinopril for BP control 5. Atelectasis. Acute, given incentive spirometer 6. Acute encephalopathy. Resolved s/p IV Abx, likely 2/2 toxic effects of infxn , ABG w/o significant hypercapnea 7. Metabolic acidosis. Acute, resolved 8. Morbid obesity. BMI 43, increases risk of worsening morbidity and/or mortality 9. JOHNNY on Chronic kidney disease stage 3. Serum creatinine level peaked at 1.9 , baseline Cr 1.3-1.7 -appreciate Dr. Srivastava's -monitor strict I/O, weights, Cr -diuresing to improve cardiac output and renal perfusion 10. UTI. Acute, POA, s/p 3 days Abx 11. HTN. Chronic, possibly contributing to dCHF -on coreg, lisinopril, lasix 12. Nausea. Acute, unclear etiology, began w/ PEs, possibly a referred symptom -did not improve w/ tx of UTI -respond to supportive care w/ zofran if taken early -counseled patient that she does not have any insidious findings to suggest otherwise dangerous etiology (having normal BMs, abd benign, WBC normalized) and BECKY w/o obstruction or pyelo -we agreed to hold on further abd imaging, see if cont to improve Diet. Regular Prophylaxis. High risk patient, on therapeutic heparin Code. Full Disposition. Anticipated discharge uncertain, requiring ongoing IV heparin drip. Subjective: nausea improved this AM by taking zofran prior to it escalating, ambulating w/ o2 Objective: Vital Signs Temp Pulse Resp BP Pulse Ox 36.7 C 67 18 155/66 H 94 05/04/17 15:11 05/04/17 15:11 05/04/17 15:11 05/04/17 15:11 05/04/17 15:11 Microbiology 05/01/17 16:10 Urine Culture - Final Urine,Clean Catch Four [place] Types Laboratory Results 05/04/17 04:09 05/04/17 04:09 05/03/17 05/04/17 05/05/17 05:59 05:59 05:59 Intake Total 2486 1281 350 Output Total 2100 2000 1800 Balance 386 -279 -1450 PT 16.6 SEC (12.0-15.0) H 05/04/17 04:09 INR 1.34 (0.83-1.16) H 05/04/17 04:09 - Time Spent With Patient Time Spent with Patient: greater than 35 minutes Time Spent with Patient: Greater than 35 minutes spent on this patients care, greater than 50% of time spent counseling, educating, and coordinating care regarding the above mentioned plan. - Physical Exam Constitutional: no apparent distress, not in pain, chronically ill appearing, obese, No uncomfortable Cardiovascular: regular rate and rhythym, no murmur, rub, or gallop, edema ( trace bilat LE), No irregularly irregular, No tachycardia Respiratory: reduced air movement (bilat bases), inspiratory crackles (bilat bases), other (aegophony improved in R base), No expiratory wheeze, No bronchial breath sounds, No respiratory distress Gastrointestinal: normoactive bowel sounds, soft, non-tender abdomen, no palpable masses Neurologic: AAOx3, No facial droop Psychiatric: interacting appropriately, not anxious, not encephalopathic, thought process linear ICD10 Worksheet Patient Problems: Problems Problem Status Onset Chest pain Acute Right flank pain Acute
[2017-05-04] MEDS ORDERED: PROMETHAZINE HCL 25 MG TAB PO PRN (17:22)
[2017-05-04] MEDS ORDERED: PROCHLORPERAZINE MALEATE 10 MG TAB PO PRN (17:23)
[2017-05-04] MEDS: ASPIRIN 81 MG CHEWABLE TAB PO SCH ×2 (21:20→21:31)
[2017-05-04] MEDS: PRAVASTATIN SODIUM 40 MG TAB PO SCH (21:21)
[2017-05-05] MEDS: ONDANSETRON DISINTEGRATING 4 MG TAB PO PRN (05:07)
[2017-05-05 05:27] LABS: INR 1.46 (0.83-1.16); PROTIME(PATIENT) 17.7 SEC (12.0-15.0)
[2017-05-05 06:27] LABS: ALBUMIN 2.8 g/dL (3.5-5.0); ANION GAP 12 mEq/L (8-16); CARBON DIOXIDE 27 mEq/l (22-31); CHLORIDE 98 mEq/L (97-110); CREATININE 1.6 mg/dL (0.6-1.0); GLOMERULAR FILTRATION RATE 32; GLUCOSE 145 mg/dL (70-100); POTASSIUM 3.8 mEq/L (3.5-5.2); SODIUM 137 mEq/L (134-144)
[2017-05-05] MEDS: INSULIN GLARGINE 100 UNITS/ML SYRINGE SC SCH ×2 (08:24→21:43)
[2017-05-05] MEDS: FUROSEMIDE 40 MG/4 ML VIAL IVP SCH ×2 (08:26→15:04)
[2017-05-05] MEDS: SENNOSIDES/DOCUSATE SODIUM TAB PO SCH ×2 (08:35→21:11)
[2017-05-05] MEDS: LISINOPRIL 2.5 MG TAB PO SCH (08:35)
[2017-05-05] MEDS: ALLOPURINOL 300 MG TAB PO SCH (08:35)
[2017-05-05] MEDS: CARVEDILOL 6.25 MG TAB PO SCH ×2 (08:35→17:52)
[2017-05-05] MEDS: INSULIN LISPRO 100 UNIT/ML SC SCH ×4 (08:36→17:52)
[2017-05-05] MEDS: CHOLECALCIFEROL VIT D3 1,000 UNITS TAB PO SCH (08:36)
[2017-05-05] MEDS: CYANO/VITAMIN B12 1000 MCG TAB PO SCH (08:36)
--- NOTE | 2017-05-05 09:28 | SOAPPROG ---
SOAP Progress Note Assessment/Plan: Assessment/Plan: CKD 3: pt is relatively at her baseline of Cr of 1.4-1.7, currently stable at 1.6. - Will continue to monitor. - Avoid hypotension and nephrotoxins. HTN: remains high, on Lasix and carvedilol. Also have restarted lisinopril. Will continue to monitor. Hypervolemia: responding well to Lasix, will continue for now. Subjective: No acute events overnight. Pt states that she is feeling fine, breathing more comfortably, urinating a lot with Lasix, swelling improving. Objective: Vital Signs Temp Pulse Resp BP Pulse Ox 36.8 C 58 L 18 161/80 H 94 05/05/17 07:32 05/05/17 07:32 05/05/17 07:32 05/05/17 07:32 05/05/17 07:32 Laboratory Results 05/04/17 04:09 05/05/17 03:50 05/04/17 05/05/17 05/06/17 05:59 05:59 05:59 Intake Total 1281 1460 Output Total 1999 2600 Balance -719 -1140 PT 17.7 SEC (12.0-15.0) H 05/05/17 03:50 INR 1.46 (0.83-1.16) H 05/05/17 03:50 General: alert and oriented, no acute distress Eyes: EOMI, PERRL OP: Clear CV: RRR Resp: nonlabored respirations on NC Abd: Soft, NT Ext: +trace edema BLE Neuro: CN II-XII grossly intact, no asterixis Psych: cooperative, appropriate mood and affect ICD10 Worksheet Patient Problems: Problems Problem Status Onset Chest pain Acute Right flank pain Acute
--- NOTE | 2017-05-05 12:42 | HOSPPROG ---
Hospitalist Progress Note Assessment/Plan: DIAGNOSES: # Pulmonary embolism and DVT with acute on chronic hypoxemic resp failure -INR 1.4, will require ongoing IV heparin due to renal issues -no hypotension, pulse and resps stable today # Acute on chronic hypoxic respiratory failure # Pleural effusion and acute diastolic CHF exacerbation. R>L, 2/2 IVF, Echo w/ preserved EF, LVH, mod increased pulm pressure # Nausea. -Acute, supsect might be due to pulm HTN and R side CHF from PE -responding well to zofran # Acute encephalopathy. Resolved s/p IV Abx, likely 2/2 toxic effects of infxn, ABG w/o significant hypercapnea # Metabolic acidosis. Acute, resolved # L axillary adenopathy noted on CT scan chest -the patient does have history of non-Hodgkin's lymphoma, and now with a pulmonary embolism and this adenopathy will want to have the Oncology service visit her and reviewed the images, determine what further assessments are indicated # coronary atherosclerosis noted incidentally on CT imaging of chest -ongoing risk factor management in the long-term will be indicated and this will need to be passed on to primary care # Morbid obesity. BMI 43 # JOHNNY on Chronic kidney disease stage 3. Serum creatinine level peaked at 1.9, baseline Cr 1.3-1.7 # UTI. Acute, POA, s/p 3 days Abx On review of the patient's echocardiogram, CT scan images, and chest x-ray images, I am not convinced that the patient actually has left-sided heart failure. I think her single AP view chest x-ray largely shows changes related to obesity with poor penetration as well as poor inspiratory volumes due to obesity and the pain of her PE. I mainly see evidence of crowding of lung structures in atelectasis. Her echocardiogram shows normal LV function and no significant valvular abnormalities. 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 She clearly has pulmonary emboli present. Also of some concern is the finding of significant adenopathy in the left axilla. I do not see evidence of heart failure in these imaging studies in terms of left-sided heart failure. Objective: Vital Signs Temp Pulse Resp BP Pulse Ox 36.7 C 66 20 183/81 H 93 05/05/17 10:59 05/05/17 10:59 05/05/17 10:59 05/05/17 10:59 05/05/17 10:59 Laboratory Results 05/04/17 04:09 05/05/17 03:50 05/04/17 05/05/17 05/06/17 06:59 06:59 06:59 Intake Total 1281 1460 Output Total 1999 2600 Balance -719 -1140 PT 17.7 SEC (12.0-15.0) H 05/05/17 03:50 INR 1.46 (0.83-1.16) H 05/05/17 03:50 ICD10 Worksheet Patient Problems: Problems Problem Status Onset Chest pain Acute Right flank pain Acute
--- NOTE | 2017-05-05 13:06 | HOSPPROG ---
Hospitalist Progress Note Assessment/Plan: DIAGNOSES: # Pulmonary embolism and DVT with acute on chronic hypoxemic resp failure -INR 1.4, will require ongoing IV heparin due to renal issues -no hypotension, pulse and resps stable today # Acute on chronic hypoxic respiratory failure # Pleural effusion and acute diastolic CHF exacerbation. R>L, 2/2 IVF, Echo w/ preserved EF, LVH, mod increased pulm pressure # Nausea. -Acute, supsect might be due to pulm HTN and R side CHF from PE -responding well to zofran # Acute encephalopathy. Resolved s/p IV Abx, likely 2/2 toxic effects of infxn, ABG w/o significant hypercapnea # diabetes mellitus, sugars not currently ideally controlled particular in the postprandial # uncontrolled hypertension # L axillary adenopathy noted on CT scan chest -the patient does have history of non-Hodgkin's lymphoma, and now with a pulmonary embolism and this adenopathy will want to have the Oncology service visit her and reviewed the images, determine what further assessments are indicated # coronary atherosclerosis noted incidentally on CT imaging of chest -ongoing risk factor management in the long-term will be indicated and this will need to be passed on to primary care # Metabolic acidosis. Acute, resolved # Morbid obesity. BMI 43 # JOHNNY on Chronic kidney disease stage 3. Serum creatinine level peaked at 1.9, baseline Cr 1.3-1.7 # UTI. Acute, POA, s/p 3 days Abx On review of the patient's echocardiogram, CT scan images, and chest x-ray images, I am not convinced that the patient actually has left-sided heart failure. I think her single AP view chest x-ray largely shows changes related to obesity with poor penetration as well as poor inspiratory volumes due to obesity and the pain of her PE. I mainly see evidence of crowding of lung structures in atelectasis. Her echocardiogram shows normal LV function and no significant valvular abnormalities. PLANS: -continue IV heparin until Coumadin therapeutic -will be able to discharge once therapeutic -continue PT and OT -continue efforts at getting blood pressure better controlled -will add regular schedule doses of Humalog insulin before meals and follow sugars closely -will review blood pressure medicines and add further therapy to bring blood pressure is in better control -oncology consultation for adenopathy and history of non-Hodgkin's lymphoma now with PE -she will need outpatient long-term follow-up for cardiovascular risk modification with now known coronary atherosclerosis SUBJECTIVE: Still having some nausea Pleuritic pain is decreased While sitting in chair is not particularly dyspneic on oxygen OBJECTIVE Vitals reviewed: Remains hypertensive but vitals otherwise stable with 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 She clearly has pulmonary emboli present. Also of some concern is the finding of significant adenopathy in the left axilla. I do not see evidence of heart failure in these imaging studies in terms of left-sided heart failure. Objective: Vital Signs Temp Pulse Resp BP Pulse Ox 36.7 C 66 20 183/81 H 93 05/05/17 10:59 05/05/17 10:59 05/05/17 10:59 05/05/17 10:59 05/05/17 10:59 Laboratory Results 05/04/17 04:09 05/05/17 03:50 05/04/17 05/05/17 05/06/17 06:59 06:59 06:59 Intake Total 1281 1460 Output Total 1999 2600 Balance -719 -1140 PT 17.7 SEC (12.0-15.0) H 05/05/17 03:50 INR 1.46 (0.83-1.16) H 05/05/17 03:50 - Time Spent With Patient Time Spent with Patient: greater than 35 minutes Time Spent with Patient: Greater than 35 minutes spent on this patients care, greater than 50% of time spent counseling, educating, and coordinating care regarding the above mentioned plan. ICD10 Worksheet Patient Problems: Problems Problem Status Onset Chest pain Acute Right flank pain Acute
--- NOTE | 2017-05-05 14:08 | ASMTCMCOM ---
CM Note CM Note Notes: Harper met w/ pt yesterday and pt does not qualify for Medicaid due to her assets. It was discovered that pts Medicare is not terminating. However, pts [employer] supplemental terminated due to recent of her spouse. CM met w/ pt and pts daughter Sonia for dispo planning. Pt requested to have a family meeting w/ Dr. Presley before deciding d/c POC. Needs are TBD at this time. CM to follow. Date Signed: 05/05/2017 02:07 PM Electronically Signed By:GARETT Wong
[2017-05-05] MEDS: WARFARIN SODIUM 7.5 MG TAB PO SCH (15:04)
[2017-05-05 16:15] LABS: HEMATOCRIT 35.9 % (38.0-47.0)
[2017-05-05 17:36] LABS: LACTATE DEHYDROGENASE 673 IU/L (313-618)
[2017-05-05] MEDS: ASPIRIN 81 MG CHEWABLE TAB PO SCH (21:11)
[2017-05-05] MEDS: PRAVASTATIN SODIUM 40 MG TAB PO SCH (21:11)
--- NOTE | 2017-05-05 22:05 | GCON ---
[f rep st] CONSULTATION FOLLOWUP MEDICAL ONCOLOGY CONSULTATION DATE OF CONSULTATION: 05/05/2017 REFERRING PHYSICIAN: Jordi Presley MD REASON FOR CONSULTATION: Ongoing management of Hodgkin disease in the setting of new pulmonary embol i. RECOMMENDATIONS: 1. Agree with treatment with pulmonary emboli as you are doing. 2. The patient will need to be re-staged for her lymphocyte-predominant Hodgkin disease after discha rge. She will likely need a PET-CT scan, as well as possibly a bone marrow biopsy. 3. Depending on her staging, it may be time to treat her Hodgkin disease in view of her recent pulmo nary emboli and worsening night sweats. 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 Staging revealed that she was stage IIA. She was followed with active surveillance; however, she was lost to followup after approximately December 5. The patient is caring for her ill . The current hospitalization was prompted by relatively sudden onset of pain in the right side of her chest. On evaluation, she was found to have bilateral pulmonary emboli and is currently being treate d with anticoagulation. She tells me that she has not had weight loss, but she has noticed that her night sweats have become more profound and a daily occurrence. She tells me that it is rare that she does not have to put her bed clothes in the dryer in the morning to dry them out from being so damp. She has not noticed any particular new lymphadenopathy. The patient's workup involved a CT angiogram of her chest. This showed an approximately 5 cm lymph n ode in her left axilla. This has been noted previously. Lymphoma can certainly increase her risk of pulmonary emboli and venous thromboembolism in general. I think it is appropriate to re-stage her in light of this new diagnosis. HISTORY OF PRESENT ILLNESS: Please see Assessment. PAST MEDICAL HISTORY: Remarkable for acute renal failure in 2011. She has also had history of diabe jerry mellitus type 2, increased uric acid levels, chronic kidney disease, hypertension, morbid obesity , hyperlipidemia, and hypertriglyceridemia. She also has obstructive sleep apnea and gallstones. PAST SURGICAL HISTORY: Includes tonsillectomy, ectopic , tubal ligation, left shoulder surg alfred, and cholecystectomy. FAMILY HISTORY: Remarkable for her mother dying at age 86 of a stroke. Her father at age 70 fr om chronic obstructive pulmonary disease. One sister of "cancer in her bone marrow." There is also history of a brother of dying of myocardial infarction. SOCIAL HISTORY: She has alcohol only occasionally. REVIEW OF SYSTEMS: Remarkable for the above-mentioned pleuritic chest pain. In addition, she has mercer d some rust-colored sputum after the diagnosis of pulmonary embolism was noted. She has had night sw eats as previously noted, also. She has had no weight loss. Her 10-system review is otherwise unrem arkable. PHYSICAL EXAMINATION: GENERAL: Shows a morbidly obese white female, who is sitting in the chair. S he is using oxygen via mask. NECK: Her neck shows no palpable adenopathy at this time. LYMPH NODES : I could not feel any clear palpable adenopathy in the axilla on either side. Her abdominal conten ts are difficult to examine. I cannot feel any enlarged lymph nodes in her groin. LABORATORY DATA: Shows white count of 8.92 with a hemoglobin of 11.7 and a platelet count of 228,000 . Her albumin is low at 2.8. Her creatinine is 1.6. She is currently anticoagulated with unfractionated heparin that is being transitioned to warfarin. /[id number]/MODL
[2017-05-06] MEDS: HEPARIN/DEXTROSE 500 ML IV SCH (03:43)
[2017-05-06] MEDS: oxyCODONE IR 5 MG TAB PO PRN (03:47)
[2017-05-06 06:03] LABS: INR 2.04 (0.83-1.16); PROTIME(PATIENT) 23.2 SEC (12.0-15.0)
[2017-05-06 06:05] LABS: ANION GAP 9 mEq/L (8-16); CALCIUM 9.1 mg/dL (8.5-10.4); CARBON DIOXIDE 33 mEq/l (22-31); CHLORIDE 96 mEq/L (97-110); CREATININE 1.5 mg/dL (0.6-1.0); GLOMERULAR FILTRATION RATE 35; GLUCOSE 191 mg/dL (70-100); POTASSIUM 3.6 mEq/L (3.5-5.2); SODIUM 138 mEq/L (134-144)
[2017-05-06] MEDS: INSULIN GLARGINE 100 UNITS/ML SYRINGE SC SCH ×2 (08:57→21:48)
[2017-05-06] MEDS: INSULIN LISPRO 100 UNIT/ML SC SCH ×7 (08:57→18:24)
[2017-05-06] MEDS: CHOLECALCIFEROL VIT D3 1,000 UNITS TAB PO SCH (09:39)
[2017-05-06] MEDS: FUROSEMIDE 40 MG/4 ML VIAL IVP SCH ×2 (09:39→15:29)
[2017-05-06] MEDS: CYANO/VITAMIN B12 1000 MCG TAB PO SCH (09:39)
[2017-05-06] MEDS: LISINOPRIL 2.5 MG TAB PO SCH (09:39)
[2017-05-06] MEDS: SENNOSIDES/DOCUSATE SODIUM TAB PO SCH ×2 (09:39→21:52)
[2017-05-06] MEDS: CARVEDILOL 6.25 MG TAB PO SCH ×2 (09:40→18:24)
[2017-05-06] MEDS: ALLOPURINOL 300 MG TAB PO SCH (09:40)
--- NOTE | 2017-05-06 11:37 | SOAPPROG ---
SOAP Progress Note Assessment/Plan: Assessment: 1. PE,DVT 2.History NLPHD 3.Left axillary node 4.Obesity, DM Plan:Continue anticoagulation, follow up Dr Mercado as outpt 05/06/17 11:35 Subjective: Feels ok, on Oxygen Objective: Vital Signs Temp Pulse Resp BP Pulse Ox 97.5 F 56 L 12 157/80 H 91 L 05/06/17 07:55 05/06/17 07:55 05/06/17 07:55 05/06/17 07:55 05/06/17 07:55 Laboratory Results 05/05/17 16:04 05/06/17 04:16 05/05/17 05/06/17 05/07/17 05:59 05:59 05:59 Intake Total 1460 1631 Output Total 2600 3000 300 Balance -1140 -1369 -300 PT 23.2 SEC (12.0-15.0) H 05/06/17 04:16 INR 2.04 (0.83-1.16) H 05/06/17 04:16 ICD10 Worksheet Patient Problems: Problems Problem Status Onset Chest pain Acute Right flank pain Acute
[2017-05-06] MEDS: WARFARIN SODIUM 7.5 MG TAB PO SCH (15:29)
[2017-05-06] MEDS ORDERED: POTASSIUM CL 20 MEQ TAB PO ONE (17:35)
--- NOTE | 2017-05-06 17:37 | SOAPPROG ---
SOAP Progress Note Assessment/Plan: Assessment/Plan: CKD 3: pt is relatively at her baseline of Cr of 1.4-1.7, currently stable at 1.5. - Will continue to monitor. - Avoid hypotension and nephrotoxins. HTN: Continue current meds. Hypervolemia: responding well to Lasix, will switch to PO dosing. Hypokalemia: K 3.6, will give KCl 20meq x1 and monitor. Subjective: No acute events overnight. Pt feeling well overall, hoping to go home soon. Objective: Vital Signs Temp Pulse Resp BP Pulse Ox 36.4 C 64 16 153/74 H 94 05/06/17 15:35 05/06/17 15:35 05/06/17 15:35 05/06/17 15:35 05/06/17 15:35 Laboratory Results 05/05/17 16:04 05/06/17 04:16 05/05/17 05/06/17 05/07/17 05:59 05:59 05:59 Intake Total 1460 1631 Output Total 2600 3000 300 Balance -1140 -1369 -300 PT 23.2 SEC (12.0-15.0) H 05/06/17 04:16 INR 2.04 (0.83-1.16) H 05/06/17 04:16 General: alert and oriented, no acute distress Eyes: EOMI, PERRL OP: Clear CV: RRR Resp: nonlabored respirations on RNC Abd: Soft, NT/ND Ext: trace edema BLE neuro: CN II-XII grossly intact, no asterixis Psych: cooperative, appropriate mood and affect ICD10 Worksheet Patient Problems: Problems Problem Status Onset Chest pain Acute Right flank pain Acute
--- NOTE | 2017-05-06 17:37 | ASMTCMCOM ---
CM Note CM Note Notes: Reviewed chart regarding discharge plan, pt's progress. Per Dr. Presley, pt will likely be ready for discharge Monday05/07/17. Met w/ pt and pt's dghtr Sonia to discuss plan. Pt to discharge to [facility] in [place]. Dghtr Sonia to provide transport. Call placed to [facility]dal[facility] w/ [facility]. Per Basia, pt conditionally accepted - they need the latest progress, nurses, medication, therapy notes to make final decision. Basia requesting specific notes on pt's behavior/mood/affect - nursing assessments and notes manually faxed per Basia's request; all other updates sent via [employer]. Basia to evaluate paperwork tonight and will call CM w/ decision Monday. Update provided to [facility], pt and pt's family. Call placed to [facility] w/ [facility], xt [phone], to assist w/ arranging oxygen for transport. CM will cont to follow and assist w/ discharging pt early d/t [address] on Monday. Current Discharge Plan: [facility], [place], [place] Date Signed: 05/06/2017 05:36 PM Electronically Signed By:Nga Gutierrez RN
--- NOTE | 2017-05-06 17:42 | HOSPPROG ---
Hospitalist Progress Note Assessment/Plan: DIAGNOSES: # Pulmonary embolism and DVT with acute on chronic hypoxemic resp failure -INR 2.0 -no hypotension, pulse and resps stable today # Acute on chronic hypoxic respiratory failure # Pleural effusion and acute diastolic CHF exacerbation. R>L, 2/2 IVF, Echo w/ preserved EF, LVH, mod increased pulm pressure # Nausea. -Acute, supsect might be due to pulm HTN and R side CHF from PE -responding well to zofran # Acute encephalopathy. Resolved s/p IV Abx, likely 2/2 toxic effects of infxn, ABG w/o significant hypercapnea # diabetes mellitus, sugars still not currently ideally controlled after increased insulin, particular in the postprandial # uncontrolled hypertension # history of Hodgkin's lymphoma, and L axillary adenopathy noted on CT scan chest -I appreciate the input from doctors Brittni and Liz, and will be certain that she follows up with Dr. Mercado in the outpatient setting # coronary atherosclerosis noted incidentally on CT imaging of chest -ongoing risk factor management in the [facility] will be indicated and this will need to be passed on to primary care # Metabolic acidosis. Acute, resolved # Morbid obesity. BMI 43 # JOHNNY on Chronic kidney disease stage 3. Serum creatinine level peaked at 1.9, baseline Cr 1.3-1.7 # UTI. Acute, POA, s/p 3 days Abx PLANS: -continue IV heparin for 24 more hours so that she is therapeutic on Coumadin for that 24 hours. We should be able to stop heparin tomorrow and [facility] -continue PT and OT -continue efforts at getting blood pressure better controlled -will increase regular scheduled doses of Humalog insulin before meals and follow sugars closely -will review blood pressure medicines and add further therapy to bring blood pressure is in better control -outpatient follow-up with Dr. 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 Exam: alert oriented skin warm dry color ok No jugular venous distension resps not labored lungs clear but very diminished BSs heart regular number abd soft nondistended nontender, bowel sounds present limbs warm, trace edema at both ankles iv site ok Objective: Vital Signs Temp Pulse Resp BP Pulse Ox 36.4 C 64 16 153/74 H 94 05/06/17 15:35 05/06/17 15:35 05/06/17 15:35 05/06/17 15:35 05/06/17 15:35 Laboratory Results 05/05/17 16:04 05/06/17 04:16 05/05/17 05/06/17 05/07/17 06:59 06:59 06:59 Intake Total 1460 1631 Output Total 2600 3000 300 Balance -1140 -1369 -300 PT 23.2 SEC (12.0-15.0) H 05/06/17 04:16 INR 2.04 (0.83-1.16) H 05/06/17 04:16 ICD10 Worksheet Patient Problems: Problems Problem Status Onset Chest pain Acute Right flank pain Acute
[2017-05-06] MEDS: PRAVASTATIN SODIUM 40 MG TAB PO SCH (21:48)
[2017-05-06] MEDS: ASPIRIN 81 MG CHEWABLE TAB PO SCH (21:54)
[2017-05-06] MEDS: POLYETHYLENE GLYCOL 3350 17 GM PKT PO PRN (22:02)
[2017-05-06 23:31] VITALS: RESP 18
[2017-05-07] MEDS: HEPARIN/DEXTROSE 500 ML IV SCH (05:20)
[2017-05-07 05:58] LABS: ALBUMIN 2.9 g/dL (3.5-5.0); ANION GAP 11 mEq/L (8-16); CALCIUM 9.3 mg/dL (8.5-10.4); CARBON DIOXIDE 32 mEq/l (22-31); CHLORIDE 96 mEq/L (97-110); CREATININE 1.5 mg/dL (0.6-1.0); GLOMERULAR FILTRATION RATE 35; GLUCOSE 153 mg/dL (70-100); POTASSIUM 3.8 mEq/L (3.5-5.2); SODIUM 139 mEq/L (134-144)
[2017-05-07 06:38] LABS: INR 2.64 (0.83-1.16); PROTIME(PATIENT) 28.5 SEC (12.0-15.0)
[2017-05-07 07:19] VITALS: BP 173/93; PULSE 65; TEMP 99.5; O2SAT 2
[2017-05-07] MEDS: ALLOPURINOL 300 MG TAB PO SCH (08:33)
[2017-05-07] MEDS: INSULIN LISPRO 100 UNIT/ML SC SCH ×2 (08:33)
[2017-05-07] MEDS: SENNOSIDES/DOCUSATE SODIUM TAB PO SCH (08:33)
[2017-05-07] MEDS: CYANO/VITAMIN B12 1000 MCG TAB PO SCH (08:34)
[2017-05-07] MEDS: LISINOPRIL 2.5 MG TAB PO SCH (08:34)
[2017-05-07] MEDS: CHOLECALCIFEROL VIT D3 1,000 UNITS TAB PO SCH (08:34)
[2017-05-07] MEDS: CARVEDILOL 6.25 MG TAB PO SCH (08:34)
[2017-05-07] MEDS: INSULIN GLARGINE 100 UNITS/ML SYRINGE SC SCH (08:36)
[2017-05-07] MEDS ORDERED: FUROSEMIDE 20 MG TAB PO SCH (09:00)
--- NOTE | 2017-05-07 09:32 | PDHOMEO2F ---
Home Oxygen Face to Face Home Orders: I certify that a physician or a nurse practitioner or physician's occupational therapist assistants has had a [id number] encounter with this patient on the date of this order due to the diagnosis listed, which relates to the primary reason the patient requires home oxygen. Alternative treatments have been tried, or considered, and deemed ineffective. It is anticipated that supplemental oxygen will result in improvement with treatment. Home oxygen qualifying diagnosis: pulmonry embolism Home oxygen secondary diagnosis: copd, chf SpO2 on room air (%): 82 Frequency of home oxygen needed: continuous Home oxygen liters per minute: 4 Home oxygen delivery device: nasal cannula Concentrator: Yes E-tanks for mobility and back up: Yes If ordering portable O2, is the patient mobile in the home?: Yes I certify that, based on these findings, the home oxygen is medically necessary for this patient for the following length of time. Length of time home oxygen needed: 3 months
--- NOTE | 2017-05-07 09:53 | PDIAF ---
- Diagnosis Diagnosis: PE, CHF, DM2, Chronic kidney dz, deconditioning Code Status: Full Code - Medication Management Discharge Medications: Medications to Continue on Transfer Allopurinol [Allopurinol 300 MG (RX)] 300 mg PO DAILY 09/11/12 [Last Taken 04/30] Aspirin [Aspirin 81mg (*)] 81 mg PO HS 09/11/12 [Last Taken 04/29/17] Furosemide [Lasix 20 MG (*)] 20 mg PO DAILY 09/11/12 [Last Taken 04/30/17] Lovastatin [Mevacor] 40 mg PO HS 09/11/12 [Last Taken 04/29/17] Nateglinide [Starlix] 60 mg PO TIDMEAL 09/11/12 [Last Taken 04/30/17] Cholecalciferol Vit D3 [Vitamin D3 (*)] 1,000 units PO DAILY 04/30/17 [Last Taken 04/29/17] Cyanocobalamin [Vitamin B12 (*)] 1,000 mcg PO DAILY 04/30/17 [Last Taken ] Insulin Glargine,Hum.rec.anlog [Basaglar Kwikpen U-100] 25 unit SQ DAILY [Last Taken 04/30/17] Insulin Glargine,Hum.rec.anlog [Basaglar Kwikpen U-100] 51 unit SQ HS 04/30/17 [ Last Taken 04/29/17] Insulin Lispro [humALOG LISPRO 100 units/ml (*)] 7 - 10 unit SC TIDMEAL [Last Taken 04/29/17] Lisinopril [Zestril 2.5 mg (*)] 2.5 mg PO DAILY 04/30/17 [Last Taken 04/30/17] Acetaminophen [Tylenol 325mg (*)] 650 mg PO Q4HRS PRN tab 05/07/17 [Last Taken Unknown] Albuterol [Proventil Neb] 3 ml IH Q2HRS PRN deyvial 05/07/17 [Last Taken Unknown] Carvedilol [Coreg (*)] 6.25 mg PO BIDMEAL tab 05/07/17 [Last Taken Unknown] Insulin Lispro [humALOG LISPRO 100 units/ml (*)] 0 unit SC TIDMEAL unit [Last Taken Unknown] Insulin Lispro [humALOG LISPRO 100 units/ml (*)] 5 unit SC TIDMEAL unit [Last Taken Unknown] Ondansetron Odt [Zofran Odt 4 mg (*)] 4 mg PO Q4HRS PRN tab 05/07/17 [Last Taken Unknown] Discharge Medications: Refer to the Discharge Home Medication list for PRN reason. PICC Care - Routine: N/A - Orders Services needed: Registered Nurse, Certified Advertising Supervisor, Master Pocket Marker , Physical Therapy, Occupational Therapy Diet Recommendation: ADA 2000 consistent carb Diet Texture: Regular Texture Diet Activity/Weight Bearing Restrictions: full wt bear Equipment: walker, oxygen - Labs/Radiology PT/INR Date: 05/10/17 (wound repeat a week later then monthly or prn) - Follow Up Care Current Providers and Referrals: Huma El MD [Primary Care Provider] - As per Instructions
--- NOTE | 2017-05-07 10:05 | PDDCSUM ---
Discharge Summary Discharge Summary: DISCHARGE DIAGNOSES: -Acute pulmonary emboli and bilateral leg DVTs -acute hypoxemic respiratory failure -acute diastolic congestive heart failure -acute encephalopathy, resolved, multifactorial etiology -urinary tract infection simple cystitis -acute on chronic kidney failure, resolved back to baseline -history of Hodgkin's lymphoma, has been managed expectantly so far, question of whether this is more active now and is the cause of PE -diabetes mellitus type 2 with some elevated blood sugars -Hypertension. CONSULTANTS: Dr. Zion Juarez PROCEDURES: CT scan chest with angiograms HOSPITAL COURSE SUMMARY: This patient presented to the hospital with shortness of breath and some pleuritic chest pain. She is found to have both some mild pulmonary congestion with diastolic heart failure, as well as acute pulmonary emboli and bilateral PEs. There was some mild acute on chronic renal failure at presentation, and she has had some uncontrolled hypertension. The patient is brought into the hospital and treated with anticoagulation and diuresis and responded quite well to both of these. At this time her pulmonary edema is fully resolved. Her INR on Coumadin is now 2.6 and has been therapeutic for 24 hours. She was treated with IV heparin here because of her renal insufficiency. There been no complications such as bleeding or any other complications of her treatment here. Her renal function has improved to baseline. The patient does still require some oxygen within 82% room air oxygen saturation. She also is quite debilitated with deconditioning and is still fairly slow toe ambulate at short distances. Therefore she is being transferred from here to a jail facility for further physical rehabilitation and to give her more time on anticoagulation to allow better resolution of her PEs any resultant pulmonary hypertension. [place] 6000 [place]. The nursing facility she will be going to is actually a lower altitude here on the [facility]. When she is able to she will return to her home here. Because the patient has a history of Hodgkin's disease she had been evaluated in the past by Dr. Mercado. This is a fairly quiescent disease so far and has been managed with observation. However she last saw Dr. Mercado around 3 years ago having stopped visiting him as she got dizzy looking after her mother. At this point is considered that her PEs could be due to some increased activity over Hodgkin's disease. I had Dr. Elkins see her and he agreed. The plan is for her to resume visiting with Dr. Mercado in the next couple of weeks to reassess her Hodgkin's disease with set of imaging and blood studies and possibly biopsy again. Consideration for any treatment will be made after that. The patient and her daughter understands this fully and are in agreement. The patient also was fully educated on the vague agrees of Coumadin monitoring, bleeding risks, drug interactions and diet interactions, etc. PENDING TEST RESULTS: None MEDICATION CHANGES: Addition of warfarin 5 mg daily FOLLOW-UP PLAN: Transfer to a jail facility at this time for further rehabilitation Follow up with Dr. Mercado in approximately 2 weeks to reassess her lymphoma Greater than 35 minutes bedside and care coordination time today
--- NOTE | 2017-05-07 16:20 | ASDISCHSUM ---
Discharge Information Plan Status:SNF Medically Cleared to Leave:05/06/2017 Discharge Date:05/07/2017 01:29 PM CM D/C Disposition:Care Home Facility ADT D/C Disposition:Care Home Facility Projected Discharge Date:05/07/2017 11:00 AM Transportation at D/C:Wheelchair Van Discharge Delay Reason: Follow-Up Date:05/07/2017 11:00 AM Discharge Slot:2 - 12:01 pm - 18:00 pm Final Diagnosis:Acute PE, bilat LE DVTs, acute hypoxemic resp failure, acute diastolic CHF, acute en cephalopathy (resolved), UTI, acute on chronic kidney failure (resolved), hx of Hodgkin's lymphoma, D M type II, HTN Placement Information Referral Type:*Senior Living/SNF Referral ID:[id number] Provider Name:[facility] Address 1:[address] Phone Number: Address 2: Fax Number: City:[place] Selection Factors:Patient/Family Choice State:[place] Patient Contact Information Contact Name:JULIA Relationship:Daughter Address: Work Phone: City: [facility] Phone: State/Zip Code: Email: Financial Information Financial Class: Primary Plan Desc:MEDICARE INPATIENT Primary Plan Number:[id number] Secondary Plan Desc:[employer]AL PLAN Secondary Plan Number:[id number] Assessment Information LACE LACE Acuity / Level of Care Answers: Was the patient admitted to hospital via the emergency department? Yes: Comorbidities - select Answers: Diabetes with end organ all that apply damage Emergency dept visits in Answers: 1 last 6 months Score: 6 Date Signed: 04/30/2017 03:07 PM Electronically Signed By:Miracle Mandel RN [facility] CM Progress Note CM Note CM Note Notes: Patient admitted for right flank pain, chest pain, neck pain, abdominal pain, N/V, constipation and diarrhea, and various other symptoms. Per chart review patient reports her symptoms started about 3 weeks ago when she tried to lift her and had right flank pain. Of note, patient's 04/24/17. Pt has a daughter Sonia who appears to live locally. Exact DC needs unknown, CM to follow. Date Signed: 04/30/2017 03:33 PM Electronically Signed By:Miracle Mandel RN [facility] Progress Note CM Note CM Note Notes: 05/02/2017 Case Management Note Case Management met w/pt and friend Geovani. Pt is recent . [place] approximately 2 weeks ago. Pt daughter Cinthia works at [employer] and can be reached at [phone]. Daughter Sonia lives in [place] [phone]. Daughter in law works as airport skilled maintenance supervisor at [employer] in [place]. PT requested referral to [facility]. She anticipates that daughter Sonia will drive her to [place] at d/c. Discussed prohibitive cost of medical transport to [place]. [facility]ax[facility] to [facility] as well in case [facility] does not accept patient. Phone call from [facility] notifying of receipt of referral. Case Management d/c poc: To [facility] rehab pending acceptance when medically stable. Case Management to follow. Date Signed: 05/02/2017 03:36 PM Electronically Signed By:Mariama Tillman RN [facility] CM Progress Note CM Note CM Note Notes: CM had a lengthy family meeting w/ daughters, Sonia and Cinthia alongside pt. Pt could not come to a decision regarding dispo plan. Sonia has expressed that she would like pt to be in [place] to be closer to her. Both daughters agreed that it is unsafe to have pt returning home. MICHAEL informed pt that other option would be 24hr supervision with home care but the recommendation from therapy is SNF. Cinthia informed CM that family cannot afford 24hr supervision. Pt and daughters would like CM to make other referrals to the [facility] SNFs. MICHAEL made a referral to [facility], [facility], [facility], [facility] and [facility]. CM notified Cinthia of the referrals made. MICHAEL has been in touch w/ [facility] and they are still in the process of reviewing the referral. CM will touch base w/ pt and daughters tomorrow. CM to follow. Date Signed: 05/03/2017 02:42 PM Electronically Signed By:GARETT Wong [facility] Progress Note CM Note CM Note Notes: CM spoke w/ daughterSonia on the phone. She reports that pt cannot make a decision regarding dispo planning until she speaks w/ [employer] and ideally sign up for Medicaid. Pt reports that her Medicare is "running out". CM contacted [facility] and she will meet w/ pt. [facility] accepted [facility]. CM informed daughter and pt of this information. CM to follow. Date Signed: 05/04/2017 04:19 PM Electronically Signed By:GARETT Wong [facility] CM Progress Note CM Note CM Note Notes: Harper met w/ pt yesterday and pt does not qualify for Medicaid due to her assets. It was discovered that pts Medicare is not terminating. However, pts [employer] supplemental terminated due to recent of her spouse. CM met w/ pt and pts daughter Sonia for dispo planning. Pt requested to have a family meeting w/ Dr. Presley before deciding d/c POC. Needs are TBD at this time. CM to follow. Date Signed: 05/05/2017 02:07 PM Electronically Signed By:GARETT Wong [facility] CM Progress Note CM Note CM Note Notes: Reviewed chart regarding discharge plan, pt's progress. Per Dr. Presley, pt will likely be ready for discharge Monday05/07/17. Met w/ pt and pt's htr Sonia to discuss plan. Pt to discharge to [facility] in [place]. Jonathanr Sonia to provide transport. Call placed to [facility] w/ MONALISA Flor. Per Basia, pt conditionally accepted - they need the latest progress, nurses, medication, therapy notes to make final decision. Basia requesting specific notes on pt's behavior/mood/affect - nursing assessments and notes manually faxed per Basia's request; all other updates sent via [employer]. Basia to evaluate paperwork tonight and will call CM w/ greta Monday. Update provided to MONALISA Hall, pt and pt's family. Call placed to [facility] w/ RT, xt [phone], to assist w/ arranging oxygen for transport. CM will cont to follow and assist w/ discharging pt early d/t [address] on Monday. Current Discharge Plan: [facility], [place], [place] Date Signed: 05/06/2017 05:36 PM Electronically Signed By:Nga Gutierrez RN Case Management Discharge Plan Note Case Management Discharge Discharge Order Complete? Answers: Yes Patient to Obtain Answers: Other Notes: via [facility] Transportation Arranged Answers: Family/Friends Transport will Pick (Date 05/07/2017 01:00 PM & Time) EMTALA Complete Answers: No Notes: n/a Case Management Transport Answers: Yes Notes: Faxed to [facility] Faxed Final Orders Answers: Yes Notes: Discharge orders/paperwork/referr al sent via [employer]; nursing assessments and last given meds manually fax ed Agency/Facility Transfer Answers: Yes Report Printed & Faxed to Receiving Agency Family Notified Answers: Yes Notes: Mayo Scott at bedside Discharge Comments Notes: Spoke w/ Dr. Presley,confirmed pt to discharge to SNF today. Call placed to Basia at [facility] . Basia confirmed all faxed information received 05/06/17. Per Basia, the Placement Specialist at [facility] would like to review pt's case on Monday05/08/17 prior to accepting pt. Per Basia, "the Placement Specialist was concerned about the lack of nursing notes surrounding the pt's behavior during her hospital stay and felt she was still too unstable for discharge." Offered to fax additional progress notes/updates, Basia declined. Update provided to MONALISA Hall and Dr. Presley. MONALISA Hall offered to place note in chart stating pt has been appropriate, cooperative the last 3 days [address] her care. Dr. Presley offered to speak with acct exec to discuss further. Call placed to Basia at [facility] - attempted to offer MD phone call and note in chart from RN, Basia refused stating "we just are not going to accept this patient." Update provided to MD, RN, pt and pt's family. Discussed alternative options. Enc dghtr to have her (who was in [place]) tour other facilities. Family chose to send a referral to [facility]. Call placed to [facility], per staff no Placement Specialist/DON on duty today; Placement Specialist paged. Call received from Selena (DIANA) at [facility]. New referral faxed via [employer], including discharge orders and paperwork. [facility] called back to accept pt. Update provided to pt and family. Oxygen previously arranged by RT w/ Charles - [address] to [place]. Additional paperwork faxed manually to Selena at [facility] including nursing behavioral assessments and last given meds (per Selena's request); confirmed receipt. Support and reassurance provided to pt. Pt to follow up as directed. IM not signed, pt left prior to signing. CM avail for any further issues or concerns. Date Signed: 05/07/2017 04:19 PM Electronically Signed By:Nga Gutierrez RN Intervention Information
--- NOTE | 2017-05-07 17:21 | PDIAF ---
- Diagnosis Diagnosis: PE, CHF, DM2, Chronic kidney dz, deconditioning Code Status: Full Code - Medication Management Discharge Medications: Medications to Continue on Transfer Allopurinol [Allopurinol 300 MG (RX)] 300 mg PO DAILY 09/11/12 [Last Taken 04/30] Aspirin [Aspirin 81mg (*)] 81 mg PO HS 09/11/12 [Last Taken 04/29/17] Furosemide [Lasix 20 MG (*)] 20 mg PO DAILY 09/11/12 [Last Taken 04/30/17] Lovastatin [Mevacor] 40 mg PO HS 09/11/12 [Last Taken 04/29/17] Nateglinide [Starlix] 60 mg PO TIDMEAL 09/11/12 [Last Taken 04/30/17] Cholecalciferol Vit D3 [Vitamin D3 (*)] 1,000 units PO DAILY 04/30/17 [Last Taken 04/29/17] Cyanocobalamin [Vitamin B12 (*)] 1,000 mcg PO DAILY 04/30/17 [Last Taken ] Insulin Glargine,Hum.rec.anlog [Basaglar Kwikpen U-100] 25 unit SQ DAILY [Last Taken 04/30/17] Insulin Glargine,Hum.rec.anlog [Basaglar Kwikpen U-100] 51 unit SQ HS 04/30/17 [ Last Taken 04/29/17] Lisinopril [Zestril 2.5 mg (*)] 2.5 mg PO DAILY 04/30/17 [Last Taken 04/30/17] Acetaminophen [Tylenol 325mg (*)] 650 mg PO Q4HRS PRN tab 05/07/17 [Last Taken Unknown] Albuterol [Proventil Neb] 3 ml IH Q2HRS PRN deyvial 05/07/17 [Last Taken Unknown] Carvedilol [Coreg (*)] 6.25 mg PO BIDMEAL tab 05/07/17 [Last Taken Unknown] Insulin Lispro [humALOG LISPRO 100 units/ml (*)] 5 unit SC TIDMEAL unit [Last Taken Unknown] Ondansetron Odt [Zofran Odt 4 mg (*)] 4 mg PO Q4HRS PRN tab 05/07/17 [Last Taken Unknown] Warfarin Sodium 5 mg PO DAILY #1 tablet 05/07/17 [Last Taken Unknown] Discharge Medications: Refer to the Discharge Home Medication list for PRN reason. PICC Care - Routine: N/A - Orders Services needed: Registered Nurse, Certified Glazier Supervisor, Master Engineer Systems , Physical Therapy, Occupational Therapy Diet Recommendation: ADA 2000 consistent carb Diet Texture: Regular Texture Diet Activity/Weight Bearing Restrictions: full wt bear Equipment: walker, oxygen Additional: use sliding scale insulin per faxed order sheet in addition to regularly scheduled insulin as in orders - Labs/Radiology PT/INR Date: 05/10/17 (wound repeat a week later then monthly or prn) - Follow Up Care Current Providers and Referrals: Huma El MD [Primary Care Provider] - As per Instructions
== END 2017-05-07 13:29 | DRG 175 ==
LOC: F2W 15:34 → OBSVTOIN 16:44
PROVIDERS: ADMIT Family Medicine; ATTEND Family Medicine
DX: I26.99 Other pulmonary embolism without acute cor pulmonale (principal); J96.01 Acute respiratory failure with hypoxia; I13.0 Hypertensive heart and chronic kidney disease with heart failure and stage 1 through stage 4 chronic kidney disease, or unspecified chronic kidney disease; I50.31 Acute diastolic (congestive) heart failure; G93.49 Other encephalopathy; I82.433 Acute embolism and thrombosis of popliteal vein, bilateral; N17.9 Acute kidney failure, unspecified; Z68.41 Body mass index [BMI] 40.0-44.9, adult; N18.3 Chronic kidney disease, stage 3 (moderate); E11.9 Type 2 diabetes mellitus without complications; N30.90 Cystitis, unspecified without hematuria; E66.09 Other obesity due to excess calories; Z85.72 Personal history of non-Hodgkin lymphomas
CPT/HCPCS: 85520-90; 97116-GP; 97162-GP; 97166-GO; 97530-GO; 97530-GP; 97535-GO; G8978-GP-CI; G8978-GP-CL; G8979-GP-CI; G8980-GP-CI; G8987-GO-CL; G8988-GO-CI; J0360; J0696; J1644; J1815; J1940; J2310; J2405; Q9967

== ENCOUNTER 2017-08-26 11:09 | Emergency (ER) | payer OTHER ==
[2017-08-26 11:17] VITALS: TEMP 98.2
[2017-08-26] MEDS ORDERED: SILVER NITRATE APPLICATOR 1 APPL TP ONE (11:27)
[2017-08-26] MEDS ORDERED: OXYMETAZOLINE 30 ML NASAL SPRAY EACHNARE ONE (11:27)
--- NOTE | 2017-08-26 11:27 | EDPHY ---
H & P Stated Complaint: nose bleed Time Seen by Provider: 08/26/17 11:22 HPI/ROS: CHIEF COMPLAINT: Epistaxis HISTORY OF PRESENT ILLNESS: The patient presents to the ED with complaints of left anterior epistaxis. The patient is currently anticoagulated. She is on Coumadin and apparently is bridging with Lovenox and anticipation of surgical procedure. The patient developed left anterior epistaxis today. She denies any headache, shortness of breath or lightheadedness. REVIEW OF SYSTEMS: A comprehensive 10 point review of systems is otherwise negative aside from elements mentioned in the history of present illness. Source: Patient Exam Limitations: No limitations - Personal History Current Tetanus/Diphtheria Vaccine: Yes Current Tetanus Diphtheria and Acellular Pertussis (TDAP): Yes Tetanus Vaccine Date: WITHIN 10 years - Medical/Surgical History Hx Asthma: No Hx Chronic Respiratory Disease: No Hx Diabetes: Yes Hx Cardiac Disease: No Hx Renal Disease: Yes Hx Cirrhosis: No Hx Alcoholism: No Hx HIV/AIDS: No Hx Splenectomy or Spleen Trauma: No Other PMH: Kidney failure, DM, ARF (W/short term diaylsis),. [place], lymph node dissection, intestinal polyp, tonsillectomy, ectopic , shoulder surg,. Baseline creat 1.2, HTN - Social History Smoking Status: Former smoker - Physical Exam Exam: General Appearance: Alert, no distress Eyes: Left anterior epistaxis noted ENT, Mouth: Mucous membranes moist Respiratory: There are no retractions, lungs are clear to auscultation Cardiovascular: Regular rate and rhythm Gastrointestinal: Abdomen is soft and nontender, no masses, bowel sounds normal Neurological: Grossly normal motor exam Skin: Warm and dry, no rashes Musculoskeletal: Neck is supple nontender Extremities: symmetrical, full range of motion Constitutional: Initial Vital Signs Temperature (C) 36.8 C 08/26/17 11:14 Heart Rate 80 08/26/17 11:14 Respiratory Rate 20 08/26/17 11:14 Blood Pressure 196/112 H 08/26/17 11:14 O2 Sat (%) 93 08/26/17 11:14 O2 Delivery Mode Room Air Allergies/Adverse Reactions: Sulfa (Sulfonamide Antibiotics) Allergy (Severe, Verified 08/26/17 11:12) Rash CANDIED FRUIT IN SPUMONI Allergy (Severe, Uncoded 08/28/12 10:14) Other-Enter Comments Home Medications: Medication Instructions Recorded Allopurinol [Allopurinol 300 MG 300 mg PO DAILY 09/11/12 (RX)] Furosemide [Lasix 20 MG (*)] 20 mg PO DAILY 09/11/12 Lovastatin [Mevacor] 40 mg PO HS 09/11/12 Nateglinide [Starlix] 60 mg PO TIDMEAL 09/11/12 Cholecalciferol Vit D3 [Vitamin D3 1,000 units PO DAILY 04/30/17 (*)] Cyanocobalamin [Vitamin B12 (*)] 1,000 mcg PO DAILY 04/30/17 Insulin Glargine,Hum.rec.anlog 25 unit SQ DAILY 04/30/17 [Basaglar Kwikpen U-100] Insulin Glargine,Hum.rec.anlog 51 unit SQ HS 04/30/17 [Basaglar Kwikpen U-100] Lisinopril [Zestril 2.5 mg (*)] 2.5 mg PO DAILY 04/30/17 Acetaminophen [Tylenol 325mg (*)] 650 mg PO Q4HRS PRN tab 05/07/17 Albuterol [Proventil Neb] 3 ml IH Q2HRS PRN deyvial 05/07/17 Carvedilol [Coreg (*)] 6.25 mg PO BIDMEAL tab 05/07/17 Insulin Lispro [humALOG LISPRO 100 5 unit SC TIDMEAL unit 05/07/17 units/ml (*)] Warfarin Sodium 5 mg PO DAILY #1 tablet 05/07/17 Lovenox 08/26/17 Medical Decision Making Procedures: Procedure: Epistaxis control. Indication: nosebleed not controlled by direct pressure. Risks, benefits, alternatives discussed with patient and consent obtained. The left nares was anesthetized with topical cocaine. The anterior epistaxis was identified. The patient was treated with vaso constriction and silver nitrate cautery. Following the procedure the patient was re-examined and the bleeding was well controlled. The patient tolerated the procedure well. The procedure was performed by myself. ED Course/Re-evaluation: The patient presents to the ED with anterior epistaxis. Clots have been cleared from the patient's nose. The anesthesia was applied with topical cocaine and vaso constriction with Afrin. Silver nitrate cautery was employed for hemostasis. I re-evaluated the patient at 1:10 p.m. And she is hemostatic. She will be discharged home in stable condition. She is given customary aftercare instructions and return precautions. Differential Diagnosis: Differential diagnosis considered includes anterior epistaxis, posterior epistaxis, supratherapeutic anticoagulation - Data Points Laboratory Results: Laboratory Results 08/26/17 11:30 08/26/17 08/26/17 11:30 11:30 WBC 6.40 10^3/uL 10^3/uL (3.80-9.50) RBC 4.80 10^6/uL 10^6/uL (4.18-5.33) Hgb 14.0 g/dL g/dL (12.6-16.3) Hct 43.1 % % (38.0-47.0) MCV 89.8 fL fL (81.5-99.8) MCH 29.2 pg pg (27.9-34.1) MCHC 32.5 g/dL g/dL (32.4-36.7) RDW 15.1 % % (11.5-15.2) Plt Count 216 10^3/uL 10^3/uL (150-400) MPV 9.9 fL fL (8.7-11.7) Neut % (Auto) 54.5 % % (39.3-74.2) Lymph % (Auto) 34.5 % % (15.0-45.0) [place] % (Auto) 7.2 % % (4.5-13.0) Eos % (Auto) 2.7 % % (0.6-7.6) Baso % (Auto) 0.8 % % (0.3-1.7) Nucleat RBC Rel Count 0.0 % % (0.0-0.2) Absolute Neuts (auto) 3.49 10^3/uL 10^3/uL (1.70-6.50) Absolute Lymphs (auto) 2.21 10^3/uL 10^3/uL (1.00-3.00) Absolute Monos (auto) 0.46 10^3/uL 10^3/uL (0.30-0.80) Absolute Eos (auto) 0.17 10^3/uL 10^3/uL (0.03-0.40) Absolute Basos (auto) 0.05 10^3/uL 10^3/uL (0.02-0.10) Absolute Nucleated RBC 0.00 10^3/uL 10^3/uL (0-0.01) Immature Gran % 0.3 % % (0.0-1.1) Immature Gran # 0.02 10^3/uL 10^3/uL (0.00-0.10) PT 25.4 SEC H SEC (12.0-15.0) INR 2.31 H (0.83-1.16) Medications Given: Discontinued Medications Cocaine HCl (Cocaine Hcl) 1 justin TP EDNOW ONE Stop: 08/26/17 11:30 Last Admin: 08/26/17 11:33 Dose: 1 justin Oxymetazoline HCl (Afrin Nasal [place]) 2 sprays [facility] EDNOW ONE Stop: 08/26/17 11:28 Last Admin: 08/26/17 11:31 Dose: 2 sprays Silver Nitrate/Potassium Nitrate (Silver Nitrate Applicator) 1 each TP EDNOW ONE Stop: 08/26/17 11:28 Last Admin: 08/26/17 11:31 Dose: 1 each Departure - Departure Disposition: Home, Routine, Self-Care Clinical Impression: Anterior epistaxis Condition: Good Instructions: Nosebleed (ED) Additional Instructions: 1. In the event of recurrent bleeding please apply direct pressure to ear nose for 5 min. 2. Return to the ED for uncontrolled bleeding. 3. Follow up with the Ear Nose Throat physician you have been referred to for any ongoing mild intermittent nose bleeding. Referrals: Zion Bowman MD [Medical Doctor] - As per Instructions
[2017-08-26] MEDS ORDERED: COCAINE HCL 4% 4 ML BTL TP ONE (11:29)
[2017-08-26 11:43] LABS: PLATELET COUNT 216 10^3/uL (150-400)
[2017-08-26 11:52] LABS: INR 2.31 (0.83-1.16); PROTIME(PATIENT) 25.4 SEC (12.0-15.0)
[2017-08-26 13:26] VITALS: BP 184/110; PULSE 71; RESP 18; O2SAT 92
== END 2017-08-26 13:26 | disposition home or self-care (01) ==
PROC: 3E09XTZ Introduction of Destructive Agent into Nose, External Approach (ICD-10-PCS; principal; 2017-08-26)
DX: R04.0 Epistaxis (principal); E11.9 Type 2 diabetes mellitus without complications; I12.0 Hypertensive chronic kidney disease with stage 5 chronic kidney disease or end stage renal disease; N18.6 End stage renal disease; Z79.01 Long term (current) use of anticoagulants; Z79.4 Long term (current) use of insulin; Z87.891 Personal history of nicotine dependence

== ENCOUNTER 2017-08-27 23:20 | Emergency (ER) | payer OTHER ==
[2017-08-27 23:25] VITALS: RESP 18; TEMP 98.4
[2017-08-27] MEDS ORDERED: OXYMETAZOLINE 30 ML NASAL SPRAY EACHNARE ONE (23:33)
[2017-08-28] MEDS ORDERED: TRANEXAMIC ACID 1,000 MG/10 ML VIAL TP ONE (00:05)
--- NOTE | 2017-08-28 00:05 | EDPHY ---
General - History Smoking Status: Former smoker Time Seen by Provider: 08/27/17 23:41 Narrative: CHIEF COMPLAINT: Nosebleed HISTORY OF PRESENT ILLNESS: Patient complains of a left-sided nosebleed. This started around 945 this evening after accidentally blowing her nose. She was here on Monday for the same complaint. She has been on Coumadin since April for PE and bilateral lower extremity DVT treatment. She was switched over to Lovenox on Monday and preparation for surgery on Monday. She has taken a dose Monday night, Monday night, and this morning. She was doing well until 9:45 p.m. When she blew her nose. She noted moderate bleeding from the left side. She has tasted blood in her throat. No chest pain. No shortness of breath. She also has secondary complaint of possible intolerance of her Lovenox. For this morning so she felt somewhat lightheaded, dizzy, nauseated and had 1 episode of diarrhea immediately after injecting Lovenox. No symptoms at this time from this. No other associated complaints or modifying factors. See scheduled for cataract correction and retinal surgery on [place] in [place]. REVIEW OF SYSTEMS: Ten systems reviewed and are negative unless otherwise noted in the HPI PCP: Dr. El SPECIALISTS: Dr. Rogelio Helton PAST MEDICAL HISTORY: Multiple comorbidities reviewed. Significant for DVT and PE as well as cancer PAST SURGICAL HISTORY: No recent surgeries. Scheduled for surgery on Monday SOCIAL HISTORY: Nonsmoker. Lives here independently FAMILY HISTORY: Noncontributory EXAMINATION General Appearance: Alert, no distress Head: normocephalic, atraumatic Eyes: Pupils equal and round, no conjunctival pallor or injection ENT, Mouth: Mucous membranes moist. Uvula midline. There is dried blood in the posterior pharynx but no active bleeding. No large clot in the posterior pharynx. There is dried blood around the left nostril and mild venous bleeding when the clip was removed. Airway is widely patent. Neck: Normal inspection, supple, non-tender Respiratory: Lungs are clear to auscultation. No wheezing, rhonchi or crackles Cardiovascular: Regular rate and rhythm. No murmur Neurological: A&O, nonfocal, normal gait Skin: Warm and dry, no rash. Good signs of perfusion Extremities: Nontender, no pedal edema Psychiatric: Mood and affect normal DIFFERENTIAL DIAGNOSES: Including but not limited to epistaxis, recurrent epistaxis, Lovenox coagulopathy, Coumadin coagulopathy, acute blood-loss anemia MDM: 11:50 p.m. Acute, recurrent left-sided epistaxis in a patient on Lovenox, bridging from Coumadin to Lovenox for surgery on Monday. Bleeding has stopped with the nose clip. I have administered Afrin and topical lidocaine to the left nostril. I reapplied the clip and I will re-evaluate. I am checking a CBC and coagulation study. I do not appreciate any pulsatile bleeding of the throat. She is awake and alert. She is protecting her airway. Vital signs are within normal limits. 12:05 p.m. I discussed case with Dr. Figueroa. She recommends topical TXA. 12:20 p.m. I have applied topical TXA. Her CBC is unremarkable. Her INR is 1.96. 12:45 p.m. Patient re-evaluated. I have removed the cotton ball from left nostril. There is no bleeding. Her airway is patent. She has elected to wait for re- evaluation for the possibility of nasal packing. She is in no acute distress. 1:10 a.m. At this time I have discussed the case again with Dr. Figueroa. She will assume care the patient. This is pending re-evaluation for the possibility of nasal packing. She is not bleeding at this time. Please see the note of Dr. Figueroa for final care disposition pain PROCEDURE: Epistaxis management Indication: epistaxis not control with pressure Consent: verbal after discussing risks, benefits and alternatives. Description: After verbal consent I administered topical lidocaine and Afrin into the left nostril with a nasal atomizer. I also inserted a TXA soaked cotton ball into the left nostril and reapplied nasal clip. Good hemostasis at this time and will monitor SUPERVISION: Patient was independently examined, but I discussed the case with my secondary supervising physician Dr. Figueroa ([facility]) PHYSICIAN DOCUMENTATION: The patient was evaluated and managed by the Physician Surveyor Helper. My co- signature indicates that I have reviewed this chart and I agree with the findings and plan of care as documented. I am the secondary supervising physician. (Arianna Figueroa) - Objective Vital Signs: Initial Vital Signs Temperature (C) 36.9 C 08/27/17 23:23 Heart Rate 85 08/27/17 23:23 Respiratory Rate 18 08/27/17 23:23 O2 Sat (%) 92 08/27/17 23:23 O2 Delivery Mode Room Air Allergies/Adverse Reactions: Sulfa (Sulfonamide Antibiotics) Allergy (Severe, Verified 08/27/17 23:21) Rash CANDIED FRUIT IN SPUMONI Allergy (Severe, Uncoded 08/27/17 23:21) Other-Enter Comments Home Medications: Medication Instructions Recorded Allopurinol [Allopurinol 300 MG 300 mg PO DAILY 09/11/12 (RX)] Furosemide [Lasix 20 MG (*)] 20 mg PO DAILY 09/11/12 Lovastatin [Mevacor] 40 mg PO HS 09/11/12 Nateglinide [Starlix] 60 mg PO TIDMEAL 09/11/12 Cholecalciferol Vit D3 [Vitamin D3 1,000 units PO DAILY 04/30/17 (*)] Cyanocobalamin [Vitamin B12 (*)] 1,000 mcg PO DAILY 04/30/17 Insulin Glargine,Hum.rec.anlog 25 unit SQ DAILY 04/30/17 [Basaglar Kwikpen U-100] Insulin Glargine,Hum.rec.anlog 51 unit SQ HS 04/30/17 [Basaglar Kwikpen U-100] Lisinopril [Zestril 2.5 mg (*)] 2.5 mg PO DAILY 04/30/17 Acetaminophen [Tylenol 325mg (*)] 650 mg PO Q4HRS PRN tab 05/07/17 Albuterol [Proventil Neb] 3 ml IH Q2HRS PRN deyvial 05/07/17 Carvedilol [Coreg (*)] 6.25 mg PO BIDMEAL tab 05/07/17 Insulin Lispro [humALOG LISPRO 100 5 unit SC TIDMEAL unit 05/07/17 units/ml (*)] Warfarin Sodium 5 mg PO DAILY #1 tablet 05/07/17 Lovenox 08/26/17 Laboratory Results: Laboratory Results 08/28/17 00:05 08/28/17 08/28/17 00:05 00:05 WBC 8.82 10^3/uL 10^3/uL (3.80-9.50) RBC 4.55 10^6/uL 10^6/uL (4.18-5.33) Hgb 13.6 g/dL g/dL (12.6-16.3) Hct 40.5 % % (38.0-47.0) MCV 89.0 fL fL (81.5-99.8) MCH 29.9 pg pg (27.9-34.1) MCHC 33.6 g/dL g/dL (32.4-36.7) RDW 15.4 % H % (11.5-15.2) Plt Count 237 10^3/uL 10^3/uL (150-400) PT 22.4 SEC H SEC (12.0-15.0) INR 1.96 H (0.83-1.16) APTT 35.4 SEC SEC (23.0-38.0) Medications Given: Discontinued Medications Oxymetazoline HCl (Afrin Nasal [place]) 2 sprays EACHNARE EDNOW ONE Stop: 08/27/17 23:34 Last Admin: 08/27/17 23:36 Dose: 2 sprays Tranexamic Acid (Cyklokapron) 500 mg TP EDNOW ONE Stop: 08/28/17 00:06 Last Admin: 08/28/17 00:16 Dose: 500 mg Departure - Departure Disposition: Home, Routine, Self-Care Clinical Impression: Acute anterior epistaxis, Medication induced coagulopathy Condition: Good Instructions: Nosebleed (ED) Additional Instructions: 1. Contact her primary care physician, ENT physician and lens engraver to discuss your nasal bleed and further care 2. ED precautions for any return of bleeding, chest pain or shortness of breath Referrals: Huma El MD [Primary Care Provider] - As per Instructions Zion Bowman MD [Medical Doctor] - As per Instructions
[2017-08-28 00:21] LABS: INR 1.96 (0.83-1.16); PROTIME(PATIENT) 22.4 SEC (12.0-15.0)
[2017-08-28 01:40] VITALS: BP 138/67; PULSE 76; O2SAT 94
== END 2017-08-28 01:39 | disposition home or self-care (01) ==
DX: R04.0 Epistaxis (principal); Z79.01 Long term (current) use of anticoagulants; Z87.891 Personal history of nicotine dependence

== ENCOUNTER 2017-08-29 16:15 | Observation (INO) | payer OTHER ==
--- NOTE | 2017-08-29 16:27 | EDPHY ---
H & P Time Seen by Provider: 08/29/17 16:16 HPI/ROS: CHIEF COMPLAINT: Hypoxia HISTORY OF PRESENT ILLNESS: The patient is a 67-year-old female who comes from the operative center. She had a cataract and vitrectomy done today under general anesthesia. She has a history of PE in April as well as diabetes and renal disease. Her Coumadin was stopped since Monday and she was transitioned to Lovenox which she has taken twice daily except for Monday when she was here in the ER with a nose bleed. She also did not take Lovenox today. She also has a history of sleep apnea and in the past has been prescribed oxygen at night but does not currently wear it. She was desaturating postoperatively into the 80s when she ambulates. She also feels lightheaded when this happens. She tells me that she is not hypoxic when she is sitting up. The anesthesiologist called and sent her here to rule out PE. She denies chest pain. No pleurisy. No fevers. She has had some moderate swelling in both legs recently. REVIEW OF SYSTEMS: Constitutional: denies: chills, fever, recent illness, recent injury EENTM: denies: blurred vision, double vision, nose congestion Respiratory: See HPI Cardiac: denies: chest pain, irregular heart rate, lightheadedness, palpitations Gastrointestinal/Abdominal: denies: abdominal pain, diarrhea, nausea, vomiting, blood streaked stools Genitourinary: denies: dysuria, frequency, hematuria, pain Musculoskeletal: denies: joint pain, muscle pain Skin: denies: lesions, rash, jaundice, bruising Neurological: denies: headache, numbness, paresthesia, tingling, dizziness, weakness Hematologic/Lymphatic: denies: blood clots, easy bleeding, easy bruising Immunologic/allergic: denies: HIV/AIDS, transplant EXAM: GENERAL: Well-appearing, obese and in no acute distress. 93% on room air. HEAD: Atraumatic, normocephalic. EYES: Pupils equal round and reactive to light, extraocular movements intact, sclera anicteric, conjunctiva are normal. ENT: TMs normal, nares patent, oropharynx clear without exudates. Moist mucous membranes. NECK: Normal range of motion, supple without lymphadenopathy or JVD. LUNGS: Breath sounds clear to auscultation bilaterally and equal. No wheezes rales or rhonchi. HEART: Regular rate and rhythm without murmurs, rubs or gallops. ABDOMEN: Soft, nontender, normoactive bowel sounds. No guarding, no rebound. No masses appreciated. BACK: No CVA tenderness, no spinal tenderness, step-offs or deformities EXTREMITIES: Normal range of motion, no pitting or edema. No clubbing or cyanosis. NEUROLOGICAL: Cranial nerves II through XII grossly intact. Normal speech, normal gait. 5/5 strength, normal movement in all extremities, normal sensation PSYCH: Normal mood, normal affect. SKIN: Warm, dry, normal turgor, no visible rashes or lesions. Source: Patient, RN/MD, EMS Exam Limitations: No limitations - Personal History Tetanus Vaccine Date: WITHIN 10 years - Medical/Surgical History Hx Asthma: No Hx Chronic Respiratory Disease: No Hx Diabetes: Yes Hx Cardiac Disease: No Hx Renal Disease: Yes Hx Cirrhosis: No Hx Alcoholism: No Hx HIV/AIDS: No Hx Splenectomy or Spleen Trauma: No Other PMH: PE, Kidney failure, DM, ARF (W/short term diaylsis),. [place], lymph node dissection, intestinal polyp, tonsillectomy, ectopic , shoulder surg,. Baseline creat 1.2, HTN - Family History Significant Family History: No pertinent family hx - Social History Smoking Status: Former smoker Constitutional: Initial Vital Signs Temperature (C) 36.8 C 08/29/17 16:15 Heart Rate 73 08/29/17 16:15 Respiratory Rate 14 08/29/17 16:15 Blood Pressure 187/69 H 08/29/17 16:15 O2 Sat (%) 93 08/29/17 16:15 O2 Delivery Mode Room Air Allergies/Adverse Reactions: Sulfa (Sulfonamide Antibiotics) Allergy (Severe, Verified 08/27/17 23:21) Rash CANDIED FRUIT IN SPUMONI Allergy (Severe, Uncoded 08/27/17 23:21) Other-Enter Comments Home Medications: Medication Instructions Recorded Allopurinol [Allopurinol 300 MG 300 mg PO DAILY 09/11/12 (RX)] Furosemide [Lasix 20 MG (*)] 20 mg PO BID 09/11/12 Lovastatin [Mevacor] 40 mg PO HS 09/11/12 Nateglinide [Starlix] 60 mg PO BIDMEAL 09/11/12 Cholecalciferol Vit D3 [Vitamin D3 1,000 units PO DAILY 04/30/17 (*)] Insulin Glargine,Hum.rec.anlog 25 unit SQ DAILY 04/30/17 [Basaglar Kwikpen U-100] Insulin Glargine,Hum.rec.anlog 54 unit SQ HS 04/30/17 [Basaglar Kwikpen U-100] Lisinopril [Zestril 2.5 mg (*)] 2.5 mg PO DAILY 04/30/17 Albuterol [Proventil Neb] 3 ml IH Q2HRS PRN deyvial 05/07/17 Carvedilol [Coreg (*)] 6.25 mg PO BIDMEAL tab 05/07/17 Bupropion HCl [Bupropion HCl Sr] 200 mg PO DAILY 08/29/17 Cyanocobalamin (Vitamin B-12) 2,500 mcg PO DAILY 08/29/17 [Vitamin B12] Insulin Lispro [HumaLOG LISPRO] 10 unit SC HS 08/29/17 Insulin Lispro [humALOG LISPRO 100 5 unit SC 0800,1200 08/29/17 units/ml (*)] Moxiflox/Ketor/Prednisol Eye D 1 drop RTEYE BID 08/29/17 amLODIPine BESYLATE [Norvasc 2.5 2.5 mg PO DAILY 08/29/17 mg (*)] Medical Decision Making - Diagnostics EKG Interpretation: An EKG obtained and was read and documented in trace view. Please see trace view for full reading and report. Sinus rhythm, right bundle branch block, no acute ischemic changes, similar to previous Imaging: Discussed imaging studies w/ call center manager Radiologist ED Course/Re-evaluation: The patient's lab work, CT and ultrasound her unremarkable. She is currently asymptomatic. She saturates 93-95% while awake but desaturates when asleep. I encouraged her to wear her oxygen at night which she was previously prescribed to do. We will road test her to see if she desaturates symptoms lightheaded like she did postoperatively. 6:[address] patient was road tested. Her saturations dropped to the mid 80s. She cannot tell if she feels lightheaded or if it is just that 1 of her eyes is covered. 6:50 p.m. I discussed the case with Dr. Cotter who will admit to the hospital service. Differential Diagnosis: Partial list of the Differential diagnosis considered include but were not limited to; hypoxic, PE and although unlikely based on the history and physical exam, I also considered pneumonia, pleural effusion, dissection, acute coronary disease. - Data Points Laboratory Results: Laboratory Results 08/29/17 16:40 08/29/17 16:40 Medications Given: Discontinued Medications Allopurinol (Allopurinol) 300 mg PO DAILY DAVID Stop: 02/26/18 08:59 Last Admin: 08/30/17 10:49 Dose: 300 mg Amlodipine Besylate (Norvasc) 2.5 mg PO DAILY DAVID Stop: 02/26/18 08:59 Last Admin: 08/30/17 10:50 Dose: 2.5 mg Bupropion HCl (Wellbutrin Sr) 200 mg PO DAILY DAVID Stop: 02/26/18 08:59 Last Admin: 08/30/17 10:49 Dose: 200 mg Carvedilol (Coreg) 6.25 mg PO BIDMEAL DAVID Stop: 02/26/18 07:59 Last Admin: 08/30/17 08:11 Dose: 6.25 mg Enoxaparin Sodium (Lovenox) 40 mg SC BID DAVID Stop: 02/26/18 08:59 Last Admin: 08/30/17 15:51 Dose: Not Given Sodium Chloride (Ns) 1,000 mls @ 0 mls/hr IV EDNOW ONE; Wide Open PRN Reason: Protocol Stop: 08/29/17 17:10 Last Admin: 08/29/17 17:13 Dose: 1,000 mls Sodium Chloride (Ns) 1,000 mls @ 0 mls/hr IV ONCE ONE PRN Reason: Wide Open Stop: 08/29/17 18:05 Last Admin: 08/29/17 18:09 Dose: 1,000 mls Miscellaneous Medication (Insulin Glargine,Hum.Rec.Anlog [Basaglar Kwikpen U-100 ]) 25 unit SQ DAILY DAVID Stop: 02/26/18 08:59 Last Admin: 08/30/17 10:45 Dose: 25 units Miscellaneous Medication (Insulin Glargine,Hum.Rec.Anlog [Basaglar Kwikpen U-100 ]) 54 unit SQ HS DAVID Stop: 02/25/18 22:59 Last Admin: 08/29/17 23:03 Dose: 54 units Miscellaneous Medication (Non-Formulary) 10 ea SC HS DAVID Stop: 02/25/18 22:59 Last Admin: 08/29/17 23:02 Dose: 10 units Miscellaneous Medication (Non-Formulary) 5 ea SC 0800,1200 DAVID Stop: 02/26/18 07:59 Last Admin: 08/30/17 12:34 Dose: 6 i.unit Miscellaneous Medication (Moxiflox/Ketor/Prednisol Eye D) 1 drop RTEYE BID [facility] Stop: 02/26/18 08:59 Last Admin: 08/30/17 11:45 Dose: Not Given Miscellaneous Medication (Moxiflox/Ketor/Prednisol Eye D) 1 drop RTEYE QID [facility] Stop: 02/26/18 08:59 Last Admin: 08/30/17 15:50 Dose: 1 drop Pravastatin Sodium (Pravachol) 40 mg PO DAILY [facility] Stop: 02/26/18 08:59 Last Admin: 08/30/17 10:50 Dose: 40 mg Departure - Departure Disposition: [facility] Acute Clinical Impression: Hypoxia Condition: Fair
--- NOTE | 2017-08-29 16:45 | CPEKG ---
Heart Rate: 62 RR Interval: 968 P-R Interval: 176 QRSD Interval: 118 QT Interval: 412 QTC Interval: 419 P Sidney: 76 QRS Sidney: 27 T Wave Sidney: 81 EKG Severity - ABNORMAL ECG - EKG Impression: SINUS RHYTHM EKG Impression: INCOMPLETE RIGHT BUNDLE BRANCH BLOCK EKG Impression: Similar to previous Electronically Signed By: Leonel Paulino 29-Aug-2017 16:49:02
[2017-08-29 16:52] LABS: PLATELET COUNT 204 10^3/uL (150-400)
[2017-08-29] MEDS ORDERED: NS 1,000 ML IV ONE ×2 (17:09→18:04)
[2017-08-29] MEDS ORDERED: IOPAMIDOL (ISOVUE 370) 100 ML BTL IV ONE (17:10)
[2017-08-29 17:23] LABS: INR 1.41 (0.83-1.16); PROTIME(PATIENT) 17.4 SEC (12.0-15.0)
[2017-08-29] MEDS ORDERED: ONDANSETRON 4 MG/2 ML VIAL IVP PRN (21:27)
[2017-08-29] MEDS ORDERED: ACETAMINOPHEN 325 MG TAB PO PRN (21:27)
[2017-08-29] MEDS ORDERED: ONDANSETRON DISINTEGRATING 4 MG TAB PO PRN (21:27)
[2017-08-29] MEDS ORDERED: ALBUTEROL 3 ML DEYVIAL IH PRN (21:36)
[2017-08-29] MEDS ORDERED: D50W 25 GM/50 ML VIAL IVP PRN (21:37)
--- NOTE | 2017-08-29 22:23 | GHP ---
[f rep st] HISTORY AND PHYSICAL DATE OF ADMISSION: 08/29/2017 CHIEF COMPLAINT: Hypoxia. HISTORY OF PRESENT ILLNESS: This is a 67-year-old female who had cataract as well as retinal surgery today, was sent over from the recovery to the ED for hypoxia. She was noted to be around 80% when s he ambulates. She does not feel short of breath. She does feel somewhat lightheaded, though she is unclear if this is due to her surgery with wearing a patch over her right eye. She had a history of pulmonary embolus back in April. She has been bridging from warfarin to the surgery with Lovenox. She did have a nosebleed with Lovenox. She does not have any chest pain. She does have some sligh tly worsening edema in her legs that she noticed today. In the emergency department, CT angio as wel l as lower extremity ultrasound have been negative. She ambulated and was hypoxic to 80% in the ED. PAST MEDICAL/SURGICAL HISTORY: 1. Pulmonary embolus in April 2017. 2. Morbid obesity. 3. Gout. 4. Hyperlipidemia. 5. Chronic renal insufficiency. 6. Diabetes mellitus. 7. Hypertension. 8. Hyperlipidemia. 9. Non-Hodgkin lymphoma. 10. Tubular adenoma. 11. Laparotomy for ectopic . 12. Left shoulder surgery. 13. Tonsillectomy. 14. Cholecystectomy. 15. Lymph node dissection. MEDICATIONS: Please see medication reconciliation. ALLERGIES: Sulfa, candied fruit, and spumoni. SOCIAL HISTORY: She does not smoke, she quit smoking. She does not drink alcohol. FAMILY HISTORY: Reviewed and noncontributory. REVIEW OF SYSTEMS: 10-point review of systems is conducted and is negative except per HPI. PHYSICAL EXAM: VITAL SIGNS: Blood pressure 180/84, heart rate 76, respiration rate 18, saturating 9 4% on 2 L. Temperature 36.7. GENERAL: The patient is a pleasant female who is resting comfortably in no acute distress. HEENT: Normocephalic, atraumatic. CARDIOVASCULAR: Regular rate and rhythm. No murmurs, rubs, or gallops. PULMONARY: Lungs clear to auscultation bilaterally. She is not in a ny respiratory distress. ABDOMEN: Soft, nontender, nondistended. SKIN: No rash. : No [place]. NEUROLOGIC: Alert and oriented x3. She is moving all extremities. PSYCHIATRIC: Normal mood and af fect. LABORATORY: Creatinine is 1.4. Otherwise, basic metabolic panel is normal. CBC is normal. INR is 1.4. DATA: 1. I discussed this with Dr. Paulino. Will admit to med/surg. 2. I reviewed her lower extremity ultrasound. This is negative for a DVT. 3. I reviewed her CT angiogram. This is also negative for a PE. 4. I reviewed her EKG. This shows an incomplete right bundle branch block. There is nothing acutel y ischemic. It is sinus rhythm. IMPRESSION AND PLAN: 1. Hypoxia: There is some atelectasis on CT scan. I suspect she is borderline hypoxic at baseline. She underwent general anesthesia today. No significant pulmonary embolus is seen on her CT scan. Provide her with incentive spirometer. Will otherwise just monitor her. I have recommended early mo bilization. I think she can be discharged tomorrow. She may need oxygen. She may be able to go wit hout. 2. History of pulmonary embolus: She is now 5 months out. I think this deserves a discussion with her primary care physician, Dr. El. However, I do not think she really needs anticoagulation an ymore at this point. She had negative imaging studies today. 3. Diabetes mellitus, type 2. Will continue her home insulin. She is on relatively high doses. 4. Chronic kidney disease: She did receive contrast. She has received IV fluids. I would hold any nephrotoxins for a few days. I will recheck her renal function tomorrow morning. /[id number]/MODL
[2017-08-29] MEDS ORDERED: INSULIN GLARGINE 54 UNIT SQ SCH (23:00)
[2017-08-30 07:12] VITALS: RESP 18
[2017-08-30] MEDS ORDERED: NATEGLINIDE 60 MG TAB PO SCH (08:00)
[2017-08-30] MEDS ORDERED: CARVEDILOL 6.25 MG TAB PO SCH (08:00)
[2017-08-30] MEDS ORDERED: [UNRECOGNIZED DRUG - MIXTURE] RTEYE SCH (09:00)
[2017-08-30] MEDS ORDERED: buPROPion SR 100 MG TAB PO SCH (09:00)
[2017-08-30] MEDS ORDERED: ALLOPURINOL 300 MG TAB PO SCH (09:00)
[2017-08-30] MEDS ORDERED: ENOXAPARIN 40 MG/0.4 ML SYR SC SCH (09:00)
[2017-08-30] MEDS ORDERED: INSULIN GLARGINE 25 UNIT SQ SCH (09:00)
[2017-08-30] MEDS ORDERED: PRAVASTATIN SODIUM 40 MG TAB PO SCH (09:00)
--- NOTE | 2017-08-30 09:43 | ASMTCASEMG ---
Living Arrangements What is your living Answers: Alone arrangement? Who do you live with? Type Of Residence What kind of residence do Answers: House you live in? Discharge Plan Comments Coordination Status Comments Notes: Pt is a 67 y/o female admitted for hypoxia. Pt had cataract and retinal surgery yesterday. Pt will most likely d/c independent when medically stable. No therapies ordered at this time. CM available for changes. Plan: Independent Date Signed: 08/30/2017 09:42 AM Electronically Signed By:GARETT Wong
[2017-08-30 11:38] VITALS: BP 142/71; PULSE 69; TEMP 98.2; O2SAT 91
[2017-08-30] MEDS: [UNRECOGNIZED DRUG - MIXTURE] RTEYE SCH ×2 (12:32→15:50)
--- NOTE | 2017-08-30 13:11 | HOSPPROG ---
Hospitalist Progress Note Assessment/Plan: Patient is a 67-year-old female who had cataract and retinal eye surgery on . She was sent over to the ED for ongoing hypoxemia. She was noted to be around 80% when she ambulates. She did not feel short of breath but felt somewhat lightheaded. She has a history of a PE back in April and had been bridging from warfarin to with Lovenox to have the surgery. Today is my 1st encounter with the patient. Chart reviewed. * acute hypoxemia -CTA did not show any significant pulmonary embolus -she is on room air and oxygen levels are 91% * hypernatremia -f/u with PCP * chronic kidney disease -she received IV contrast, creatinine is 1.4 -this is her baseline * diabetes type 2 * history of a pulmonary embolus, she is 5 months out -she can discuss her care with Dr. El. I do not think she needs anticoagulation since she had negative imaging studies * coronary artery disease per CT scan -she get follow up with her primary care *dc home Subjective: Shelby feels fine, no complaints. Objective: Vital Signs Temp Pulse Resp BP Pulse Ox 36.8 C 69 18 142/71 H 91 L 08/30/17 11:30 08/30/17 11:30 08/30/17 11:30 08/30/17 11:30 08/30/17 11:30 Laboratory Results 08/30/17 06:20 08/29/17 08/30/17 08/31/17 05:59 05:59 05:59 Intake Total 1999 Balance 1999 PT 17.4 SEC (12.0-15.0) H 08/29/17 16:40 INR 1.41 (0.83-1.16) H 08/29/17 16:40 - Physical Exam Constitutional: no apparent distress, obese Eyes: other (wearing dark glasses) Ears, Nose, Mouth, Throat: hearing normal Cardiovascular: regular rate and rhythym Respiratory: no respiratory distress Gastrointestinal: normoactive bowel sounds Skin: warm Musculoskeletal: full muscle strength Neurologic: AAOx3 Psychiatric: interacting appropriately ICD10 Worksheet Patient Problems: Problems Problem Status Onset Hypoxia Acute Chest pain Acute Right flank pain Acute
--- NOTE | 2017-08-30 14:55 | GDS ---
[f rep st] DISCHARGE SUMMARY DISCHARGE DIAGNOSES: 1. Acute hypoxemia. 2. Hypernatremia. 3. Chronic kidney disease. 4. Diabetes type 2. 5. History of pulmonary embolus. 6. Coronary artery disease per CT scan. HISTORY: Briefly, the patient is a 67-year-old female who had cataract retinal eye surgery on 08/29. She was sent over to the emergency room for ongoing hypoxemia. She was noted to be around 80% when she ambulated. She did not feel that short of breath, but lightheaded. She has a history of a PE. Subsequently, a CTA was performed which was negative for A pulmonary emboli. During her stay she has improved with deep breathing. Oxygen levels are stable on room air. HOSPITAL COURSE BY PROBLEM: 1. Acute hypoxemia, resolved. 2. Hypernatremia. Sodium is slightly elevated. She had been instructed by her doctor to monitor how much fluid she takes in, suspects she is a bit dehydrated. To get a repeat chemistry panel next week. 3. Chronic kidney disease. She received IV contrast. Her creatinine is 1.4, this is her baseline. 4. Diabetes type 2. Resumed her home regimen. 5. History of pulmonary embolus, she is 5 months out. To follow up with Dr. El. I do not think she needs any further anticoagulant because she has negative imaging studies. 6. Coronary artery disease, this was noted on the CT scan. Recommending further follow up with her primary care provider. DISCHARGE CONDITION: Stable. Blood pressure is 142/71, heart rate 69, respiratory rate is 18, O2 saturation on room air 91%, temperature is 36.8 Celsius. MEDICATIONS AT DISCHARGE: Please see the EMR. I have discontinued her Lovenox and Coumadin, and recommend her to follow up with her PCP. DISCHARGE INSTRUCTIONS: 1. To return to the ER if she develops worsening shortness of breath. 2. Further follow up with her eye surgeon. /[id number]/MODL MTDD
== END 2017-08-30 16:06 | disposition home or self-care (01) ==
LOC: EDUNIT# → F3E 20:20
PROVIDERS: ADMIT Student in an Organized Health Care Education/Training Program; ATTEND Hospitalist
DX: R09.02 Hypoxemia (principal); J95.89 Other postprocedural complications and disorders of respiratory system, not elsewhere classified; Z98.49 Cataract extraction status, unspecified eye; E87.0 Hyperosmolality and hypernatremia; R60.0 Localized edema; E11.22 Type 2 diabetes mellitus with diabetic chronic kidney disease; N18.9 Chronic kidney disease, unspecified; I25.10 Atherosclerotic heart disease of native coronary artery without angina pectoris; Z86.711 Personal history of pulmonary embolism; G47.33 Obstructive sleep apnea (adult) (pediatric)
CPT/HCPCS: 71275; 93005; 93970; G0378; Q9967

== ENCOUNTER → 2017-10-16 | Outpatient (CLI) | payer OTHER | LOC: BHFA 09:30 | PROVIDERS: ATTEND Internal Medicine | DX: R06.02 Shortness of breath (principal); R94.31 Abnormal electrocardiogram [ECG] [EKG] | CPT/HCPCS: 78452; 93017; 93306; A9500; J2785 ==

== ENCOUNTER 2017-12-22 10:03 | Inpatient (IN) | payer OTHER ==
[2017-12-22] MEDS ORDERED: NS 1,000 ML IV ONE (10:32)
[2017-12-22 10:54] LABS: PLATELET COUNT 266 10^3/uL (150-400)
[2017-12-22 11:44] LABS: CREATINE KINASE 25 IU/L (0-156)
--- NOTE | 2017-12-22 12:19 | EDPHY ---
H & P Stated Complaint: Nausea, vomiting for 3 weeks, unable to keep anything down. Time Seen by Provider: 12/22/17 11:25 HPI/ROS: CHIEF COMPLAINT: Nausea vomiting diarrhea x3 weeks HISTORY OF PRESENT ILLNESS: 67-year-old female lives by herself, history of diabetes, history of chronic kidney disease creatinine between 1.2 and 1.4 baseline, complaining of intractable diarrhea several times per day for the past 3 weeks. No recent antibiotic use. No abdominal pain. No fever or chills. No lightheadedness. No chest pain. No dyspnea. No melena or hematochezia. REVIEW OF SYSTEMS: A ten point review of systems was performed and is negative with the exception of the items mentioned in the HPI PAST MEDICAL & SURGICAL HISTORY: Chronic kidney disease. Diabetes. SOCIAL HISTORY: Nonsmoker, lives by herself PHYSICAL EXAM (Prior to examination, patient consented to physical exam, hands were washed and my usual and customary physical exam procedures followed) 1) GENERAL: Well-developed, well-nourished, alert and oriented. Appears to be in no acute distress. 2) HEAD: Normocephalic, atraumatic 3) HEENT: Pupils equal, round, reactive to light bilaterally. Sclera anicteric. [Nasopharynx, oropharynx, clear, no lesions. Dry mucous membranes 4) NECK: Full range of motion, no meningeal signs. 5) LUNGS: Clear auscultation bilaterally, no wheezes, no rhonchi, no retractions. 6) HEART: Regular rate and rhythm, no murmur, no heave, no gallop. 7) ABDOMEN: No guarding, no rebound, no focal tenderness, negative McBurney's, negative Vieira's, negative Rovsing's, negative peritoneal sign, unable to elicit any abdominal pain on exam 8) MUSCULOSKELETAL: Moving all extremities, no focal areas of tenderness, no obvious trauma. No peripheral edema or discoloration. 9) BACK: No CVA tenderness, no midline vertebral tenderness, no fluctuance, no step-off, no obvious trauma, no visual or palpable abnormality. 10) SKIN: No rash, no petechiae. 11) Psychiatric: Patient is oriented X 3, there is no agitation. DIFFERENTIAL DIAGNOSIS: In no particular include but limited to infectious diarrhea, C diff colitis, gastritis - Personal History Current Tetanus Diphtheria and Acellular Pertussis (TDAP): Yes Tetanus Vaccine Date: WITHIN 10 years - Medical/Surgical History Hx Asthma: No Hx Chronic Respiratory Disease: No Hx Diabetes: Yes Hx Cardiac Disease: No Hx Renal Disease: Yes Hx Cirrhosis: No Hx Alcoholism: No Hx HIV/AIDS: No Hx Splenectomy or Spleen Trauma: No Other PMH: PE, Kidney failure, DM 2, ARF (W/short term diaylsis),. [place], lymph node dissection, intestinal polyp, tonsillectomy, ectopic , shoulder surg,. Baseline creat 1.2, HTN - Social History Smoking Status: Former smoker Constitutional: Initial Vital Signs Heart Rate 86 12/22/17 10:06 Respiratory Rate 18 12/22/17 10:06 Blood Pressure 139/114 H 12/22/17 10:06 O2 Sat (%) 93 12/22/17 10:06 O2 Delivery Mode Room Air Allergies/Adverse Reactions: Sulfa (Sulfonamide Antibiotics) Allergy (Severe, Verified 08/27/17 23:21) Rash CANDIED FRUIT IN SPUMONI Allergy (Severe, Uncoded 08/27/17 23:21) Other-Enter Comments Home Medications: Medication Instructions Recorded Allopurinol [Allopurinol 300 MG 300 mg PO DAILY 09/11/12 (RX)] Furosemide [Lasix 20 MG (*)] 20 mg PO DAILY 09/11/12 Lovastatin [Mevacor] 40 mg PO HS 09/11/12 Cholecalciferol Vit D3 [Vitamin D3 1,000 units PO DAILY 04/30/17 (*)] Insulin Glargine,Hum.rec.anlog 25 unit SQ DAILY 04/30/17 [Basaglar Kwikpen U-100] Insulin Glargine,Hum.rec.anlog 50 unit SQ HS 04/30/17 [Basaglar Kwikpen U-100] Lisinopril [Zestril 2.5 mg (*)] 2.5 mg PO DAILY 04/30/17 Albuterol [Proventil Neb] 3 ml IH Q2HRS PRN deyvial 05/07/17 Carvedilol [Coreg (*)] 6.25 mg PO BIDMEAL tab 05/07/17 Bupropion HCl [Bupropion HCl Sr] 200 mg PO DAILY 08/29/17 Cyanocobalamin (Vitamin B-12) 2,500 mcg PO DAILY 08/29/17 [Vitamin B12] amLODIPine BESYLATE [Norvasc 2.5 2.5 mg PO DAILY 08/29/17 mg (*)] Aspirin [Aspirin 81mg (*)] 81 mg PO HS 12/22/17 Insulin Aspart [novoLOG] 0 unit SC TIDMEAL 12/22/17 Medical Decision Making - Diagnostics Imaging Results: Imaging Impressions Chest X-Ray 12/22/17 11:48 Impression: 1. No active cardiopulmonary disease seen. 2. Stable possible dislocation of the right distal clavicular head with widening of the left AC joint previous resection of the distal head of the left clavicle suspected. ED Course/Re-evaluation: Case discussed with secondary supervising physician Dr. Sonia Garcia in the ER. Patient noted to have an elevated creatinine of 2.4 which is higher than her baseline of chronic kidney disease between 1.2 and 1.4. She continues to have intractable diarrhea and notes continued nausea and decreased oral intake as oral intake typically will trigger nausea. I recommended admission to the hospital for hydration, monitoring of her creatinine. Patient is agreeable with this. 12:18 p.m.: Consultation with hospitalist Sindi, admit to Dr. Chavez - Data Points Laboratory Results: Laboratory Results 12/22/17 10:37 12/22/17 10:37 12/22/17 12/22/17 12/22/17 10:37 10:37 10:37 WBC RBC Hgb Hct MCV MCH MCHC RDW Plt Count MPV Neut % (Auto) Lymph % (Auto) [place] % (Auto) Eos % (Auto) Baso % (Auto) Nucleat RBC Rel Count Absolute Neuts (auto) Absolute Lymphs (auto) Absolute Monos (auto) Absolute Eos (auto) Absolute Basos (auto) Absolute Nucleated RBC Immature Gran % Immature Gran # Sodium 138 mEq/L mEq/L (135-145) Potassium 4.2 mEq/L mEq/L (3.3-5.0) Chloride 103 mEq/L mEq/L (97-110) Carbon Dioxide 26 mEq/l mEq/l (22-31) Anion Gap 9 mEq/L mEq/L (8-16) BUN 36 mg/dL H mg/dL (7-23) Creatinine 2.4 mg/dL H mg/dL (0.6-1.0) Estimated GFR 20 Glucose 93 mg/dL mg/dL (70-100) Calcium 9.5 mg/dL mg/dL (8.5-10.4) Total Bilirubin 0.9 mg/dL mg/dL (0.1-1.4) Conjugated Bilirubin 0.5 mg/dL mg/dL (0.0-0.5) Unconjugated Bilirubin 0.4 mg/dL mg/dL (0.0-1.1) AST 17 IU/L IU/L (14-46) ALT 17 IU/L IU/L (9-52) Alkaline Phosphatase 103 IU/L IU/L (38-126) Creatine Kinase 25 IU/L IU/L (0-156) Troponin I < 0.012 ng/mL ng/mL (0.000-0.034) Total Protein 7.2 g/dL g/dL (6.3-8.2) Albumin 3.8 g/dL g/dL (3.5-5.0) Lipase 79 IU/L IU/L (23-300) 12/22/17 10:37 WBC 7.39 10^3/uL 10^3/uL (3.80-9.50) RBC 5.02 10^6/uL 10^6/uL (4.18-5.33) Hgb 14.4 g/dL g/dL (12.6-16.3) Hct 44.9 % % (38.0-47.0) MCV 89.4 fL fL (81.5-99.8) MCH 28.7 pg pg (27.9-34.1) MCHC 32.1 g/dL L g/dL (32.4-36.7) RDW 15.6 % H % (11.5-15.2) Plt Count 266 10^3/uL 10^3/uL (150-400) MPV 10.5 fL fL (8.7-11.7) Neut % (Auto) 61.6 % % (39.3-74.2) Lymph % (Auto) 26.5 % % (15.0-45.0) Pepin % (Auto) 8.8 % % (4.5-13.0) Eos % (Auto) 2.2 % % (0.6-7.6) Baso % (Auto) 0.5 % % (0.3-1.7) Nucleat RBC Rel Count 0.0 % % (0.0-0.2) Absolute Neuts (auto) 4.55 10^3/uL 10^3/uL (1.70-6.50) Absolute Lymphs (auto) 1.96 10^3/uL 10^3/uL (1.00-3.00) Absolute Monos (auto) 0.65 10^3/uL 10^3/uL (0.30-0.80) Absolute Eos (auto) 0.16 10^3/uL 10^3/uL (0.03-0.40) Absolute Basos (auto) 0.04 10^3/uL 10^3/uL (0.02-0.10) Absolute Nucleated RBC 0.00 10^3/uL 10^3/uL (0-0.01) Immature Gran % 0.4 % % (0.0-1.1) Immature Gran # 0.03 10^3/uL 10^3/uL (0.00-0.10) Sodium Potassium Chloride Carbon Dioxide Anion Gap BUN Creatinine Estimated GFR Glucose Calcium Total Bilirubin Conjugated Bilirubin Unconjugated Bilirubin AST ALT Alkaline Phosphatase Creatine Kinase Troponin I Total Protein Albumin Lipase Medications Given: Discontinued Medications Sodium Chloride (Ns) 1,000 mls @ 0 mls/hr IV ONCE ONE; Wide Open PRN Reason: Protocol Stop: 12/22/17 10:33 Last Admin: 12/22/17 10:33 Dose: 1,000 mls Departure - Departure Disposition: [facility] Inpatient Acute Clinical Impression: History of diabetes mellitus Acute kidney failure Qualifiers: Acute renal failure type: unspecified Qualified Code(s): N17.9 - Acute kidney failure, unspecified Condition: Fair
--- NOTE | 2017-12-22 12:40 | CPEKG ---
Heart Rate: 75 RR Interval: 800 P-R Interval: 172 QRSD Interval: 120 QT Interval: 396 QTC Interval: 443 P Dodge: 64 QRS Dodge: -26 T Wave Dodge: 87 EKG Severity - ABNORMAL ECG - EKG Impression: SINUS RHYTHM EKG Impression: IVCD, CONSIDER ATYPICAL RBBB Electronically Signed By: Chucky Doran 28-Dec-2017 21:54:55
[2017-12-22] MEDS ORDERED: ALBUTEROL 3 ML DEYVIAL IH PRN (13:57)
[2017-12-22] MEDS ORDERED: D50W 25 GM/50 ML SYR IVP PRN (13:59)
[2017-12-22] MEDS ORDERED: ACETAMINOPHEN 325 MG TAB PO PRN (14:01)
[2017-12-22] MEDS ORDERED: OXYCODONE/APAP 5/325 TAB PO PRN (14:01)
[2017-12-22] MEDS ORDERED: NS 1,000 ML IV SCH (14:15)
--- NOTE | 2017-12-22 14:39 | PDGENHP ---
History and Physical - Chief Complaint nausea, diarrhea - History of Present Illness 67-year-old female lives by herself, history of diabetes, history of chronic kidney disease creatinine between 1.2 and 1.4 baseline, complaining of intractable diarrhea, nausea, and vomiting several times per day for the past 3 weeks. No recent antibiotic use. No abdominal pain. No fever or chills. No lightheadedness. No chest pain. No dyspnea. No melena or hematochezia. Cr found to be elevated IVF started PAST MEDICAL & SURGICAL HISTORY: PE, Kidney failure, DM 2, ARF (W/short term diaylsis),. [place], lymph node dissection, intestinal polyp, tonsillectomy, ectopic , shoulder surg,. Baseline creat 1.2, HTN SOCIAL HISTORY: Nonsmoker (forme smoker), lives by herself FAMILY HISTORY: non contributory History Information - Allergies/Home Medication List Allergies/Adverse Reactions: Sulfa (Sulfonamide Antibiotics) Allergy (Severe, Verified 08/27/17 23:21) Rash CANDIED FRUIT IN SPUMONI Allergy (Severe, Uncoded 08/27/17 23:21) Other-Enter Comments Home Medications: Allopurinol [Allopurinol 300 MG (RX)] 300 mg PO DAILY 09/11/12 [Last Taken 12/21] Furosemide [Lasix 20 MG (*)] 20 mg PO DAILY 09/11/12 [Last Taken 12/21/17] Lovastatin [Mevacor] 40 mg PO HS 09/11/12 [Last Taken 12/21/17] Cholecalciferol Vit D3 [Vitamin D3 (*)] 1,000 units PO DAILY 04/30/17 [Last Taken 08/28/17] Insulin Glargine,Hum.rec.anlog [Basaglar Kwikpen U-100] 25 unit SQ DAILY [Last Taken 12/22/17] Insulin Glargine,Hum.rec.anlog [Basaglar Kwikpen U-100] 50 unit SQ HS 04/30/17 [ Last Taken 12/21/17] Lisinopril [Zestril 2.5 mg (*)] 2.5 mg PO DAILY 04/30/17 [Last Taken 12/21/17] Bupropion HCl [Bupropion HCl Sr] 200 mg PO DAILY 08/29/17 [Last Taken 12/21/17] Cyanocobalamin (Vitamin B-12) [Vitamin B12] 2,500 mcg PO DAILY 08/29/17 [Last Taken 08/28/17] amLODIPine BESYLATE [Norvasc 2.5 mg (*)] 2.5 mg PO DAILY 08/29/17 [Last Taken ] Aspirin [Aspirin 81mg (*)] 81 mg PO HS 12/22/17 [Last Taken 12/21/17] Insulin Aspart [novoLOG] 0 unit SC TIDMEAL 12/22/17 [Last Taken 2 Weeks Ago ~] I have personally reviewed and updated: medical history, social history - Social History Smoking Status: Former smoker Review of Systems Review of Systems: ROS: 10pt was reviewed & negative except for what was stated in HPI & below Physical Exam Physical Exam: Temp Pulse Resp BP Pulse Ox 36.6 C 71 18 170/99 H 94 12/22/17 14:22 12/22/17 14:22 12/22/17 14:22 12/22/17 14:22 12/22/17 14:22 Constitutional: not in pain Eyes: PERRL, EOMI Ears, Nose, Mouth, Throat: moist mucous membranes, hearing normal, dry mucous membranes Cardiovascular: regular rate and rhythym, No edema Respiratory: no respiratory distress, no rales or rhonchi Gastrointestinal: normoactive bowel sounds Skin: warm Neurologic: AAOx3 Psychiatric: interacting appropriately, not anxious, not encephalopathic Lymph, Heme, Immunologic: No petechiae Lab Data & Imaging Review 12/22/17 10:37 12/22/17 10:37 WBC 7.39 10^3/uL (3.80-9.50) 12/22/17 10:37 RBC 5.02 10^6/uL (4.18-5.33) 12/22/17 10:37 Hgb 14.4 g/dL (12.6-16.3) 12/22/17 10:37 Hct 44.9 % (38.0-47.0) 12/22/17 10:37 MCV 89.4 fL (81.5-99.8) 12/22/17 10:37 MCH 28.7 pg (27.9-34.1) 12/22/17 10:37 MCHC 32.1 g/dL (32.4-36.7) L 12/22/17 10:37 RDW 15.6 % (11.5-15.2) H 12/22/17 10:37 Plt Count 266 10^3/uL (150-400) 12/22/17 10:37 MPV 10.5 fL (8.7-11.7) 12/22/17 10:37 Neut % (Auto) 61.6 % (39.3-74.2) 12/22/17 10:37 Lymph % (Auto) 26.5 % (15.0-45.0) 12/22/17 10:37 [place] % (Auto) 8.8 % (4.5-13.0) 12/22/17 10:37 Eos % (Auto) 2.2 % (0.6-7.6) 12/22/17 10:37 Baso % (Auto) 0.5 % (0.3-1.7) 12/22/17 10:37 Nucleat RBC Rel Count 0.0 % (0.0-0.2) 12/22/17 10:37 Absolute Neuts (auto) 4.55 10^3/uL (1.70-6.50) 12/22/17 10:37 Absolute Lymphs (auto) 1.96 10^3/uL (1.00-3.00) 12/22/17 10:37 Absolute Monos (auto) 0.65 10^3/uL (0.30-0.80) 12/22/17 10:37 Absolute Eos (auto) 0.16 10^3/uL (0.03-0.40) 12/22/17 10:37 Absolute Basos (auto) 0.04 10^3/uL (0.02-0.10) 12/22/17 10:37 Absolute Nucleated RBC 0.00 10^3/uL (0-0.01) 12/22/17 10:37 Immature Gran % 0.4 % (0.0-1.1) 12/22/17 10:37 Immature Gran # 0.03 10^3/uL (0.00-0.10) 12/22/17 10:37 Sodium 138 mEq/L (135-145) 12/22/17 10:37 Potassium 4.2 mEq/L (3.3-5.0) 12/22/17 10:37 Chloride 103 mEq/L (97-110) 12/22/17 10:37 Carbon Dioxide 26 mEq/l (22-31) 12/22/17 10:37 Anion Gap 9 mEq/L (8-16) 12/22/17 10:37 BUN 36 mg/dL (7-23) H 12/22/17 10:37 Creatinine 2.4 mg/dL (0.6-1.0) H 12/22/17 10:37 Estimated GFR 20 12/22/17 10:37 Glucose 93 mg/dL (70-100) 12/22/17 10:37 Calcium 9.5 mg/dL (8.5-10.4) 12/22/17 10:37 Total Bilirubin 0.9 mg/dL (0.1-1.4) 12/22/17 10:37 Conjugated Bilirubin 0.5 mg/dL (0.0-0.5) 12/22/17 10:37 Unconjugated Bilirubin 0.4 mg/dL (0.0-1.1) 12/22/17 10:37 AST 17 IU/L (14-46) 12/22/17 10:37 ALT 17 IU/L (9-52) 12/22/17 10:37 Alkaline Phosphatase 103 IU/L (38-126) 12/22/17 10:37 Creatine Kinase 25 IU/L (0-156) 12/22/17 10:37 Troponin I < 0.012 ng/mL (0.000-0.034) 12/22/17 10:37 Total Protein 7.2 g/dL (6.3-8.2) 12/22/17 10:37 Albumin 3.8 g/dL (3.5-5.0) 12/22/17 10:37 Lipase 79 IU/L (23-300) 12/22/17 10:37 Assessment & Plan Assessment: #Acute on Chronic Renal Failure #Dehydration #Diarrhea #Nausea and Vomiting #Dyspnea on Exertion #IDDM #HTN #HLD Plan: admit observation provide more IVF, will go slow given a hx of LOU[place] and being on Lasix, unclear if she has CHF GI - PCR renal diet hold Lisinopril Hydralazine PRN PT SCD's DNR, confirmed at bedside
[2017-12-22] MEDS: CARVEDILOL 6.25 MG TAB PO SCH (16:15)
[2017-12-22] MEDS: INSULIN LISPRO 100 UNIT/ML SC SCH (16:16)
[2017-12-22] MEDS: INSULIN GLARGINE 100 UNITS/ML UNIT SC SCH (21:22)
[2017-12-22] MEDS: PRAVASTATIN SODIUM 40 MG TAB PO SCH (21:23)
[2017-12-22] MEDS: ASPIRIN 81 MG CHEWABLE TAB PO SCH (21:23)
[2017-12-22] MEDS: ONDANSETRON 4 MG/2 ML VIAL IVP PRN (23:41)
[2017-12-22] MEDS: hydrALAZINE 20 MG/ML VIAL IVP PRN (23:43)
[2017-12-23] MEDS: ONDANSETRON 4 MG/2 ML VIAL IVP PRN ×3 (05:14→18:55)
[2017-12-23] MEDS: INSULIN LISPRO 100 UNIT/ML SC SCH ×3 (08:49→17:59)
[2017-12-23] MEDS: buPROPion SR 100 MG TAB PO SCH (08:58)
[2017-12-23] MEDS: ALLOPURINOL 300 MG TAB PO SCH (08:59)
[2017-12-23] MEDS: CYANO/VITAMIN B12 1000 MCG TAB PO SCH (08:59)
[2017-12-23] MEDS: CARVEDILOL 6.25 MG TAB PO SCH ×2 (09:00→21:55)
[2017-12-23] MEDS: CHOLECALCIFEROL VIT D3 1,000 UNITS TAB PO SCH (09:00)
--- NOTE | 2017-12-23 09:33 | ASMTCMCOM ---
CM Note CM Note Notes: Patient admitted with c/o of n/v/d x 3 weeks and acute on chronic renal failure. She has a history of ARF and IDDM. She's being treated with IVF and a PCR is pending for GI symptoms. Patient lives alone and is normally independent. Her discharge needs are unclear at this time; PT has been ordered. Case Management will follow. Date Signed: 12/23/2017 09:33 AM Electronically Signed By:Debbie García RN
[2017-12-23] MEDS: INSULIN GLARGINE 100 UNITS/ML UNIT SC SCH ×2 (10:19→21:56)
--- NOTE | 2017-12-23 12:36 | HOSPPROG ---
Hospitalist Progress Note Assessment/Plan: #Acute on Chronic Renal Failure -improving but Cr is not back to baseline #Dehydration, improving #Diarrhea, none since admission #Nausea and Vomiting, persistent #Dyspnea on Exertion #IDDM #HTN #HLD Plan: Change to inpatient and monitor overnight. She is still on IVF and these will be stopped after this bag is completed as she is starting to get pedal edema. Will encourage PO intake Hold Lasix and Lisinopril repeat labs in a.m. GI - PCR, she has not had further diarrhea renal diet hold Lisinopril Hydralazine PRN PT SCD's DNR, confirmed at bedside Subjective: no cp or sob. Starting to get extremity swelling. Cr is better. Objective: Vital Signs Temp Pulse Resp BP Pulse Ox 36.8 C 68 16 145/84 H 93 12/23/17 12:00 12/23/17 12:00 12/23/17 12:00 12/23/17 12:00 12/23/17 12:00 Laboratory Results 12/23/17 05:00 12/22/17 12/23/17 12/24/17 05:59 05:59 05:59 Intake Total 2034 Output Total 1000 Balance 1035 - Physical Exam Constitutional: no apparent distress Eyes: PERRL, EOMI Ears, Nose, Mouth, Throat: moist mucous membranes, hearing normal Cardiovascular: regular rate and rhythym, edema (trace LE edema) Respiratory: no respiratory distress, no rales or rhonchi, clear to auscultation Gastrointestinal: normoactive bowel sounds Skin: warm Musculoskeletal: generalized weakness Neurologic: AAOx3 Psychiatric: interacting appropriately, not anxious, not encephalopathic ICD10 Worksheet Patient Problems: Problems Problem Status Onset Acute kidney failure Acute History of diabetes mellitus Acute Chest pain Acute Hypoxia Acute Right flank pain Acute
--- NOTE | 2017-12-23 13:21 | PDMN ---
Medical Necessity Medical necessity: Change to IP, as of 12/23/17, per MD & MCG [id number]; los >2 mn for ongoing management of acute on chronic renal failure w/dyspnea, tachycardia , HTN, N/V & pedal edema; requiring further monitoring, followup labs, IV antiemetics & therapy; hx diabetes; per progress note & order
[2017-12-23] MEDS: ASPIRIN 81 MG CHEWABLE TAB PO SCH (21:56)
[2017-12-23] MEDS: PRAVASTATIN SODIUM 40 MG TAB PO SCH (21:56)
[2017-12-23] MEDS: hydrALAZINE 20 MG/ML VIAL IVP PRN (22:13)
[2017-12-23] MEDS ORDERED: hydrALAZINE 10 MG TAB PO PRN (23:55)
[2017-12-24] MEDS ORDERED: hydrALAZINE 10 MG TAB PO PRN (00:15)
[2017-12-24] MEDS: ONDANSETRON DISINTEGRATING 4 MG TAB PO PRN ×2 (05:13→18:08)
[2017-12-24] MEDS: ONDANSETRON 4 MG/2 ML VIAL IVP PRN (08:26)
[2017-12-24] MEDS: INSULIN LISPRO 100 UNIT/ML SC SCH ×3 (08:32→17:52)
[2017-12-24] MEDS ORDERED: BISACODYL 10 MG SUPP PR PRN (09:36)
[2017-12-24] MEDS ORDERED: LACTULOSE 20 GM/30 ML UDCUP PO PRN (09:36)
[2017-12-24] MEDS ORDERED: POLYETHYLENE GLYCOL 3350 17 GM PKT PO PRN (09:36)
--- NOTE | 2017-12-24 09:42 | HOSPPROG ---
Hospitalist Progress Note Assessment/Plan: #Acute on Chronic Renal Failure -improving but Cr is not back to baseline -FENa is 1.4 c/w intrinsic etiology -volume status is much improved with IVF -she is urinating well -cont to monitor off ivf, avoid nephrotoxins, hold Lasix and Lisinopril. Would expect slow improvement #Dehydration, resolved #Diarrhea, none since admission -Now with no BM since admission -will start stool softner #Nausea and Vomiting -no further emesis but nausea persists -Etiology is unclear. ?GERD, ?Gastroparesis, ?other -will start a trial of PPI, schedule antiemetics #Dyspnea on Exertion, none currently. TTE recently showed preserved LVEF #IDDM -cont with home insulin regimen -glucose overall well controlled #HTN -Holding AMELIA-I and diuretic -increase Amlodipine to 10mg daily -cont BB #HLD SCD's DNR, confirmed at bedside cont inpatient. She does not feel safe discharging given that she is still has symptomatic nausea Subjective: still with nausea. urinating well. Objective: Vital Signs Temp Pulse Resp BP Pulse Ox 36.7 C 76 16 155/73 H 93 12/24/17 07:32 12/24/17 07:32 12/24/17 07:32 12/24/17 07:32 12/24/17 07:32 Laboratory Results 12/24/17 05:08 12/23/17 12/24/17 12/25/17 05:59 05:59 05:59 Intake Total 350 Output Total 1000 1500 Balance -650 -1500 - Physical Exam Constitutional: no apparent distress, not in pain Eyes: PERRL, EOMI Ears, Nose, Mouth, Throat: moist mucous membranes Cardiovascular: regular rate and rhythym, No edema Respiratory: no respiratory distress, no rales or rhonchi, clear to auscultation Gastrointestinal: normoactive bowel sounds, soft, non-tender abdomen Skin: warm Musculoskeletal: full muscle strength Neurologic: AAOx3 Psychiatric: interacting appropriately, not anxious, not encephalopathic Lymph, Heme, Immunologic: No petechiae ICD10 Worksheet Patient Problems: Problems Problem Status Onset Acute kidney failure Acute History of diabetes mellitus Acute Chest pain Acute Hypoxia Acute Right flank pain Acute
[2017-12-24] MEDS: CHOLECALCIFEROL VIT D3 1,000 UNITS TAB PO SCH (10:22)
[2017-12-24] MEDS: CYANO/VITAMIN B12 1000 MCG TAB PO SCH (10:22)
[2017-12-24] MEDS: ALLOPURINOL 300 MG TAB PO SCH (10:22)
[2017-12-24] MEDS: buPROPion SR 100 MG TAB PO SCH (10:22)
[2017-12-24] MEDS: CARVEDILOL 6.25 MG TAB PO SCH ×2 (10:22→18:08)
[2017-12-24] MEDS: INSULIN GLARGINE 100 UNITS/ML UNIT SC SCH ×2 (10:26→21:38)
[2017-12-24] MEDS: POLYETHYLENE GLYCOL 3350 17 GM PKT PO SCH ×2 (10:42→21:36)
[2017-12-24] MEDS: PANTOPRAZOLE SODIUM 40 MG VIAL IVP SCH (10:43)
[2017-12-24] MEDS: ONDANSETRON DISINTEGRATING 4 MG TAB PO SCH ×3 (13:26→22:35)
[2017-12-24] MEDS: ASPIRIN 81 MG CHEWABLE TAB PO SCH (21:38)
[2017-12-24] MEDS: PRAVASTATIN SODIUM 40 MG TAB PO SCH (21:38)
[2017-12-24] MEDS: SENNOSIDES/DOCUSATE SODIUM TAB PO SCH (21:40)
[2017-12-25] MEDS: INSULIN LISPRO 100 UNIT/ML SC SCH ×3 (08:45→18:48)
[2017-12-25] MEDS: ALLOPURINOL 300 MG TAB PO SCH (09:34)
[2017-12-25] MEDS: CHOLECALCIFEROL VIT D3 1,000 UNITS TAB PO SCH (09:34)
[2017-12-25] MEDS: buPROPion SR 100 MG TAB PO SCH (09:34)
[2017-12-25] MEDS: CYANO/VITAMIN B12 1000 MCG TAB PO SCH (09:35)
[2017-12-25] MEDS: INSULIN GLARGINE 100 UNITS/ML UNIT SC SCH ×3 (09:36→21:33)
[2017-12-25] MEDS: CARVEDILOL 6.25 MG TAB PO SCH ×2 (09:36→18:15)
[2017-12-25] MEDS: POLYETHYLENE GLYCOL 3350 17 GM PKT PO SCH (09:38)
[2017-12-25] MEDS: ONDANSETRON DISINTEGRATING 4 MG TAB PO SCH ×3 (09:41→21:35)
[2017-12-25] MEDS: PANTOPRAZOLE SODIUM 40 MG VIAL IVP SCH (09:42)
[2017-12-25] MEDS: SENNOSIDES/DOCUSATE SODIUM TAB PO SCH ×2 (09:52→21:34)
[2017-12-25] MEDS ORDERED: amLODIPine BESYLATE 5 MG TAB PO ONE (10:02)
--- NOTE | 2017-12-25 13:17 | HOSPPROG ---
Hospitalist Progress Note Assessment/Plan: 67y female with c/o N/V. First encounter, chart reviewed. D/W RN at bedside. #Acute on Chronic Renal Failure -improving but Cr is not back to baseline -FENa is 1.4 c/w intrinsic etiology -volume status is much improved with IVF -she is urinating well -cont to monitor off ivf, avoid nephrotoxins, hold Lasix and Lisinopril. Would expect slow improvement -recheck labs in am #Dehydration, resolved -follow labs #Diarrhea, none since admission -Now with no BM since admission -stool softner #Nausea and Vomiting -no further emesis but nausea persists -Etiology is unclear. ?GERD, ?Gastroparesis, ?other -PPI and antiemetics #Dyspnea on Exertion - none currently. - TTE recently showed preserved LVEF #IDDM -cont with home insulin regimen -glucose overall well controlled #HTN -Holding AMELIA-I and diuretic -increase Amlodipine to 10mg daily -cont BB #HLD SCD's cont inpatient. She does not feel safe discharging given that she is still has symptomatic nausea bowel therapy Subjective: Feeling nauseous. No pain. No other issues. Objective: Vital Signs Temp Pulse Resp BP Pulse Ox 36.8 C 69 16 160/75 H 93 12/25/17 11:52 12/25/17 11:52 12/25/17 11:52 12/25/17 11:52 12/25/17 11:52 Laboratory Results 12/25/17 05:05 12/24/17 12/25/17 12/26/17 05:59 05:59 05:59 Intake Total 350 400 Output Total 1000 1950 900 Balance -650 -1950 -500 - Physical Exam Constitutional: not in pain, chronically ill appearing, obese Eyes: PERRL, anicteric sclera, EOMI Ears, Nose, Mouth, Throat: moist mucous membranes, hearing normal, ears appear normal Cardiovascular: No JVD, No tachycardia, No edema Respiratory: no respiratory distress, no rales or rhonchi, reduced air movement Gastrointestinal: normoactive bowel sounds, No tenderness, No ascites Skin: warm, normal color, No mottled Musculoskeletal: normal joint ROM, no joint effusions, generalized weakness Neurologic: AAOx3 Psychiatric: interacting appropriately, not anxious, not encephalopathic, thought process linear ICD10 Worksheet Patient Problems: Problems Problem Status Onset Right flank pain Acute Chest pain Acute Hypoxia Acute Acute kidney failure Acute History of diabetes mellitus Acute
--- NOTE | 2017-12-25 15:19 | ASMTCMCOM ---
CM Note CM Note Notes: CM spoke to MONALISA Corado regarding d/c POC. PT is recommending home w/ outpatient rehab follow up. No other needs identified at this time. CM available for changes. Plan: Independent Date Signed: 12/25/2017 03:02 PM Electronically Signed By:GARETT Wong
[2017-12-25] MEDS: PRAVASTATIN SODIUM 40 MG TAB PO SCH (21:35)
[2017-12-25] MEDS: ASPIRIN 81 MG CHEWABLE TAB PO SCH (21:35)
[2017-12-26] MEDS: PANTOPRAZOLE SODIUM 40 MG TAB PO SCH (08:28)
[2017-12-26] MEDS: buPROPion SR 100 MG TAB PO SCH (08:28)
[2017-12-26] MEDS: ALLOPURINOL 300 MG TAB PO SCH (08:29)
[2017-12-26] MEDS: ONDANSETRON DISINTEGRATING 4 MG TAB PO SCH ×3 (08:29→21:22)
[2017-12-26] MEDS: CHOLECALCIFEROL VIT D3 1,000 UNITS TAB PO SCH (08:30)
[2017-12-26] MEDS: CYANO/VITAMIN B12 1000 MCG TAB PO SCH (08:30)
[2017-12-26] MEDS: CARVEDILOL 6.25 MG TAB PO SCH ×2 (08:30→17:59)
[2017-12-26] MEDS: SENNOSIDES/DOCUSATE SODIUM TAB PO SCH ×2 (08:33→21:18)
[2017-12-26] MEDS: INSULIN GLARGINE 100 UNITS/ML UNIT SC SCH ×2 (09:27→21:22)
[2017-12-26] MEDS: INSULIN LISPRO 100 UNIT/ML SC SCH ×3 (09:34→17:59)
--- NOTE | 2017-12-26 14:27 | HOSPPROG ---
Hospitalist Progress Note Assessment/Plan: 67y female with c/o N/V. #Acute on Chronic Renal Failure -improving but Cr is not back to baseline -FENa is 1.4 c/w intrinsic etiology -volume status is much improved with IVF -she is urinating well -cont to monitor off ivf, avoid nephrotoxins, hold Lasix and Lisinopril. -nephrology consult, not returning to baseline #Dehydration, resolved -follow labs #Diarrhea/constipation -stool softner, now diarrhea -GI PCR pending #Nausea and Vomiting -no further emesis but nausea persists -Etiology is unclear. ?GERD, ?Gastroparesis, ?other -PPI and antiemetics #Dyspnea on Exertion - none currently. - TTE recently showed preserved LVEF #IDDM -cont with home insulin regimen -glucose overall well controlled #HTN -Holding AMELIA-I and diuretic -increase Amlodipine to 10mg daily -cont BB #HLD SCD's cont inpatient. She does not feel safe discharging given that she is still has symptomatic nausea nephrology consult Subjective: Up in chair. Now with diarrhea and abd cramping. Objective: Vital Signs Temp Pulse Resp BP Pulse Ox 36.7 C 72 16 165/93 H 92 12/26/17 08:00 12/26/17 08:00 12/26/17 08:00 12/26/17 08:30 12/26/17 08:00 Laboratory Results 12/26/17 05:15 12/25/17 12/26/17 12/27/17 05:59 05:59 05:59 Intake Total 900 Output Total 1950 900 Balance -1950 0 - Physical Exam Constitutional: chronically ill appearing, obese Eyes: PERRL, anicteric sclera Ears, Nose, Mouth, Throat: moist mucous membranes, hearing normal Cardiovascular: edema, No JVD Respiratory: no respiratory distress, reduced air movement Gastrointestinal: tenderness, No ascites Skin: warm, normal color Musculoskeletal: no joint effusions, generalized weakness Neurologic: AAOx3 Psychiatric: interacting appropriately, not encephalopathic, thought process linear, anxious ICD10 Worksheet Patient Problems: Problems Problem Status Onset Right flank pain Acute Chest pain Acute Hypoxia Acute Acute kidney failure Acute History of diabetes mellitus Acute
[2017-12-26] MEDS: ASPIRIN 81 MG CHEWABLE TAB PO SCH (21:21)
[2017-12-26] MEDS: PRAVASTATIN SODIUM 40 MG TAB PO SCH (21:21)
[2017-12-27] MEDS: ONDANSETRON DISINTEGRATING 4 MG TAB PO SCH ×3 (08:35→21:00)
[2017-12-27] MEDS: INSULIN GLARGINE 100 UNITS/ML UNIT SC SCH ×2 (08:36→21:00)
[2017-12-27] MEDS: INSULIN LISPRO 100 UNIT/ML SC SCH ×3 (08:38→18:37)
--- NOTE | 2017-12-27 09:32 | GCON ---
[f rep st] CONSULTATION DATE OF CONSULTATION: 12/27/2017 REASON FOR CONSULTATION: Opinion regarding acute kidney injury in a patient with known chronic kidne y disease. HISTORY OF PRESENT ILLNESS: The patient is very pleasant 67-year-old female with biopsy-proven diabe tic nephropathy, previously followed by Dr. Haylee Sanchez in our office. The patient has baseline seru m creatinine dating back to about 2012 of 1.4 to about 1.6. Over the course of the past 6 weeks or s o she has been having nausea, diarrhea, and occasional abdominal discomfort. She has also had a bit of a cough that has been nonproductive. No hemoptysis. She was admitted to the hospital on 12/23/19 18 with presumed volume depletion from acute kidney injury, she received IV fluids and her serum crea tinine went from 2.4 down to 2.0, but has stayed around 2.0 subsequently. We have been asked to see her for further evaluation and management of her recalcitrant acute kidney injury. The patient has not been having fevers, chills. She does have some nausea, no vomiting. No chest pa in, shortness of breath. She does have a nonproductive cough. No hemoptysis, hematemesis, epistaxis , melena, hematochezia. She did have diarrhea for approximately 4-6 weeks. No rash arthritis, arthr algias, myalgias, blurry vision, double vision, headache, orthopnea, paroxysmal nocturnal dyspnea, pa lpitations, syncope. She did have 1 bloody nose. The patient has a history of Hodgkin lymphoma, I t hijoellenk diagnosed in 2012. She had some recurrence noted recently and did have a contrasted CT scan. S he also has taken 1, perhaps 2 tabs of naproxen during her diarrheal illness. PAST MEDICAL HISTORY: Significant for: 1. Stage 3 chronic kidney disease, baseline creatinine between 1.4 and 1.6 for the past 3-4 years. 2. Diabetes mellitus type 2. 3. Diabetic nephropathy by percutaneous kidney biopsy. 4. Hypertension. 5. Hodgkin lymphoma. 6. History of bilateral pulmonary emboli in the fall of 2016, this was complicated by acute kidney i njury. 7. Hyperlipidemia. 8. Obstructive sleep apnea syndrome. 9. Proteinuria. 10. Secondary hyperparathyroidism. CURRENT MEDICATIONS: Include: 1. Tylenol. 2. Proventil. 3. Allopurinol 300 mg daily. 4. Amlodipine 10 mg daily. 5. Aspirin 81 mg daily. 6. Wellbutrin 200 mg daily. 7. Coreg 6.25 mg twice daily. 8. Vitamin D 1000 units daily. 9. Protonix 40 mg daily. 10. Insulin. 11. Lactulose p.r.n. 12. Pravachol 40 mg daily. ALLERGIES: To sulfa. SOCIAL HISTORY: She is a former tobacco user. Drinks about 1 alcoholic beverage a month. She has 2 children and she is a , her 2nd recently . FAMILY HISTORY: Positive for diabetes. REVIEW OF SYSTEMS: A complete 12-point review of systems was performed with the pertinent positives and negatives as per the previous sections. PHYSICAL EXAMINATION: VITAL SIGNS: Blood pressure is 150/75, pulse 70, respirations 16, temp 36.5. Urine output about 900 cc yesterday. GENERAL: She is awake, alert, cooperative, and is in no acute distress. HEENT: Pupils are reactive to light. Extraocular movements are intact. Mucous membrane s are somewhat dry. NECK: No lymphadenopathy, thyromegaly, or JVD. Her neck is thick. HEART: Reg ular. No rub. No S3. Grade 1/6 murmur. LUNGS: No rales, rhonchi, or wheezes. ABDOMEN: Obese. Bowel sounds are positive. She is a bit tender on the right side. No rebound or guarding. EXTREMIT IES: No edema, cyanosis, or clubbing. NEUROLOGIC: No asterixis. SKIN: Changes of arterial insuff iciency bilaterally. LYMPH: No palpable lymphadenopathy that I can appreciate. MUSCULOSKELETAL: N o effusions or tenderness. LABORATORY: Serum sodium 136, potassium 4.8, chloride 107, CO2 26, BUN 31, creatinine 2, glucose 118 , calcium 9, albumin 3.1, AST 14. Urinalysis: Specific gravity 1.011, pH 5, negative protein, posit mahi blood. Urine sodium was 79, urine creatinine 82. Hemoglobin A1c 6.8, AST 17, albumin 3.8. Lipa se was 79. Cholesterol 154, triglycerides 251, LDL 75, HDL 29. WBC 7.4, hemoglobin 14.4, hematocrit 45, platelet count 266,000. Interestingly, her anion gap is only 3. IMPRESSION: 1. Acute kidney injury, likely multifactorial due to diarrhea/volume depletion, intravenous contrast during a CT scan of her abdomen and pelvis, as well as NSAID use, although that was only minimal. 2. Low anion gap of 3 in a patient with Hodgkin lymphoma, makes me wonder if we may be dealing with a paraproteinemia. 3. Abdominal discomfort. 4. History of bilateral pulmonary emboli in the past. 5. Life-threatening obesity. 6. Obstructive sleep apnea syndrome. 7. Secondary hyperparathyroidism. RECOMMENDATIONS: 1. I think we should check retroperitoneal ultrasound, as well as an echocardiogram. I would also l herson to check an SPEP and free light chains to make sure we are not dealing with a paraproteinemia fro m possible recurrence of her Hodgkin lymphoma. 2. We will be checking spot urine chemistries and following her renal function. 3. There are no urgent dialysis needs at this time. 4. I have explained to the patient, and she certainly understands that she should try to avoid nonst eroidal anti-inflammatory drugs and IV contrast in the future. 5. All questions were answered to her satisfaction. Thank you for allowing me to participate in the care of your patient. If there are any questions, pl ease do not hesitate to contact us. We will be following with you. /[id number]/MODL
[2017-12-27] MEDS: ALLOPURINOL 300 MG TAB PO SCH (09:58)
[2017-12-27] MEDS: buPROPion SR 100 MG TAB PO SCH (09:58)
[2017-12-27] MEDS: CARVEDILOL 6.25 MG TAB PO SCH ×2 (09:58→17:42)
[2017-12-27] MEDS: CYANO/VITAMIN B12 1000 MCG TAB PO SCH (09:59)
[2017-12-27] MEDS: CHOLECALCIFEROL VIT D3 1,000 UNITS TAB PO SCH (10:00)
[2017-12-27] MEDS: POLYETHYLENE GLYCOL 3350 17 GM PKT PO SCH (10:00)
[2017-12-27] MEDS: PANTOPRAZOLE SODIUM 40 MG TAB PO SCH (10:00)
[2017-12-27] MEDS: SENNOSIDES/DOCUSATE SODIUM TAB PO SCH ×2 (10:00→21:38)
--- NOTE | 2017-12-27 10:09 | HOSPPROG ---
Hospitalist Progress Note Assessment/Plan: 67y female with c/o N/V. On admission was noted that she had an acute kidney injury. Her creatinine was 2.4 went down to 2 but has stayed in the 2 area. Today is my 1st encounter with the patient. Chart reviewed. Appreciate Nephrology seeing the patient. *Acute kidney injury -multifactorial due to volume depletion also the patient received IV contrast dye in August as well as NSAID use -a retroperitoneal ultrasound and echocardiogram are ordered -an SPEP and free light chains were ordered for evaluation of possible recurrence of her Hodgkin's lymphoma *abdominal pain -vague #Diarrhea/constipation -stool softener, now diarrhea -GI PCR not sent, patient has not had diarrhea #Nausea and Vomiting -patient says this is new since a month ago -gets relief w zofran but then comes back -will ask GI to see -had a bout of emesis this morning #Dyspnea on Exertion - none currently. #IDDM -cont with home insulin regimen -glucose overall well controlled -A1c is 6.8 #HTN -Holding AMELIA-I and diuretic in the setting of renal failure -Norvasc was increased to 10 mg -cont BB #DVT prophylaxis: added Heparin tid #plan: GI to see, f/u with ultrasound and echocardiogram Subjective: Shelby is tearful about having the nausea that occurs frequently. Objective: Vital Signs Temp Pulse Resp BP Pulse Ox 37.0 C 78 16 151/68 H 88 L 12/27/17 08:00 12/27/17 08:00 12/27/17 08:00 12/27/17 08:00 12/27/17 08:00 Laboratory Results 12/27/17 04:55 12/26/17 12/27/17 12/28/17 05:59 05:59 05:59 Intake Total 900 700 Output Total 900 Balance 0 700 - Physical Exam Constitutional: obese, uncomfortable Eyes: PERRL Ears, Nose, Mouth, Throat: hearing normal Cardiovascular: regular rate and rhythym Respiratory: no respiratory distress Gastrointestinal: normoactive bowel sounds Skin: warm Musculoskeletal: full muscle strength Neurologic: AAOx3 Psychiatric: interacting appropriately ICD10 Worksheet Patient Problems: Problems Problem Status Onset Acute kidney failure Acute History of diabetes mellitus Acute Chest pain Acute Hypoxia Acute Right flank pain Acute
--- NOTE | 2017-12-27 11:34 | ASMTCMCOM ---
CM Note CM Note Notes: Patient with ongoing complaints of nausea, vomiting, diarrhea of unknown etiology. Hospitalist has asked nephrology and GI to see. Her d/c needs are still unclear at this time, although she is independent per PT. Case Management will continue to follow. Date Signed: 12/27/2017 11:34 AM Electronically Signed By:Debbie García RN
--- NOTE | 2017-12-27 13:19 | GCON ---
[f rep st] CONSULTATION REFERRING PHYSICIAN: Sindi Villavicencio NP REASON FOR CONSULTATION: Nausea. CHIEF COMPLAINT: Nausea. HISTORY OF PRESENT ILLNESS: Briefly, the patient is a 67-year-old pleasant female with multiple medical problems, was admitted to the hospital on 2017 for nausea and diarrhea. She reports she has had an approximately 3-4 week gradually progressive of abdominal symptoms. She began with mild nausea and limited diarrhea. Over the last 2-3 weeks, she reports the symptoms are gradually worsening. Of note, in the hospital, her diarrhea seems to have resolved. She continues to have mild nausea. She reports her nausea is related to movement. If she sits still, she has no nausea. If she gets up and moves around, she will have increased nausea. When she vomits, it is typically dry heaving or mucus. She has not had any emesis of undigested or recently eaten meals. She has noticed a decrease in her appetite, but reports no weight loss. Typically in the morning when she wakes up, she has no nausea. As soon as she gets out of bed and begins to move, she will notice some dizziness, the occurrence of nausea and dry heaving. Eating does not exacerbate her symptoms. Despite having a poor appetite, she reports that she is able to the complete meals without worsening symptoms. She has no abdominal pain. She reports no fevers, chills, or sweats. She denies any prior history of similar symptoms, although she does report at a prior episode of acute on chronic renal failure, she had nausea symptoms, perhaps not as severe as these. She reports no changes in her medicines or health history at the time of original symptoms, although they do coincide with a recent eye surgery. Initially, she was concerned about vertigo given the relationship between nausea and activity and body position. She is not so convinced now, however. PAST MEDICAL HISTORY: Includes pulmonary embolism, kidney failure, diabetes, cholecystectomy, tonsillectomy, ectopic , shoulder surgery. SOCIAL HISTORY: She does not smoke. She lives by herself. She does not drink alcohol. FAMILY HISTORY: Negative for kidney disease and colon polyps. ALLERGIES: Sulfa drugs. HOME MEDICATIONS: Allopurinol, Lasix, lovastatin, vitamin D, insulin, bupropion , vitamin B12, amlodipine, aspirin. REVIEW OF SYSTEMS: A complete 10-point review was undertaken with the patient and is negative except for those details described in the history of present illness. PHYSICAL EXAMINATION: GENERAL: This is an obese, well-developed female in no apparent distress. HEENT: Her pupils are equal, round, reactive to light and accommodation. Her sclerae are nonicteric. Oropharynx is clear. NECK: Supple without lymphadenopathy. HEART: Regular without murmur. Bilateral lower extremity edema. ABDOMEN: Soft, nontender, with normoactive bowel sounds. LUNGS : clear to auscultation. EXTREMITIES: Free of cyanosis, clubbing, or edema. NEURO: Exam is grossly nonfocal. SKIN: Warm and dry. PSYCH: Carter reveals normal mood and affect, although she is frequently tearful during our exam. LABORATORY/IMAGING: White count of 7.39, hemoglobin of 14.4, hematocrit of 44.9 , platelet count of 266. Sodium of 136, potassium of 4.8, chloride of 107, bicarb of 26, BUN of 31, creatinine of 2.0. Of note, on admission, her BUN was 36 and her creatinine was 2.4. She reports her baseline creatinine is around 1.2 or 1.4. IMPRESSION/RECOMMENDATIONS: The patient is admitted to the hospital with acute on chronic renal failure. This has been in the setting of approximately 3-4 weeks of abdominal symptoms. It is difficult to determine the nature of her abdominal symptoms. The differential diagnosis is quite broad. Given the relationship to body position, I am concerned about the possibility of STREAMING MEDIA SPECIALIST or inner ear etiologies? It is also possible her nausea is related to renal failure. Given the absence of associated worsening or improvement with eating, bowel movements, etc, and the fact that she has not had any emesis of ingested food, leads me to suspect her symptoms may not be in fact from a gastrointestinal tract origin. I suspect she has a more toxic/metabolic/ multifactorial reason for her symptoms. Her diarrhea seems to have resolved. At this time, I recommend continued supportive care and observation of symptoms. We will plan no particular gastrointestinal workup at this time. Should symptoms worsen or persist despite ongoing supportive care, could consider additional evaluation. Upper endoscopy, gastric emptying study, abdominal imaging, CT scan of the head, etc. could all be considered. At this point though, however, I recommend continued observational care. Will sign off, please call with additional questions. /[id number]/MODL MTDD
[2017-12-27] MEDS ORDERED: ALBUTEROL 3 ML DEYVIAL IH PRN (14:56)
[2017-12-27] MEDS: PRAVASTATIN SODIUM 40 MG TAB PO SCH (21:00)
[2017-12-27] MEDS: ASPIRIN 81 MG CHEWABLE TAB PO SCH (21:00)
[2017-12-27] MEDS: HEPARIN 5,000 UNIT/0.5 ML INJ SC SCH (21:01)
[2017-12-28] MEDS: HEPARIN 5,000 UNIT/0.5 ML INJ SC SCH ×3 (05:15→21:07)
[2017-12-28] MEDS: INSULIN LISPRO 100 UNIT/ML SC SCH ×3 (09:02→18:12)
[2017-12-28] MEDS: ONDANSETRON DISINTEGRATING 4 MG TAB PO SCH ×3 (09:15→21:08)
[2017-12-28] MEDS: PANTOPRAZOLE SODIUM 40 MG TAB PO SCH (09:16)
[2017-12-28] MEDS: CYANO/VITAMIN B12 1000 MCG TAB PO SCH (09:16)
[2017-12-28] MEDS: CHOLECALCIFEROL VIT D3 1,000 UNITS TAB PO SCH (09:17)
[2017-12-28] MEDS: buPROPion SR 100 MG TAB PO SCH (09:17)
[2017-12-28] MEDS: ALLOPURINOL 300 MG TAB PO SCH (09:17)
[2017-12-28] MEDS: CARVEDILOL 6.25 MG TAB PO SCH ×2 (09:17→18:13)
[2017-12-28] MEDS: POLYETHYLENE GLYCOL 3350 17 GM PKT PO SCH (09:18)
[2017-12-28] MEDS: SENNOSIDES/DOCUSATE SODIUM TAB PO SCH ×2 (09:18→21:15)
[2017-12-28] MEDS: INSULIN GLARGINE 100 UNITS/ML UNIT SC SCH ×2 (09:55→21:07)
--- NOTE | 2017-12-28 13:16 | HOSPPROG ---
Hospitalist Progress Note Assessment/Plan: 67y female with c/o N/V. On admission was noted that she had an acute kidney injury. Her creatinine was 2.4 went down to 2 but has stayed in the 2 area. *Acute kidney injury -improving, creat is 1.8 today -multifactorial due to volume depletion also the patient received IV contrast dye in August as well as NSAID use -a retroperitoneal ultrasound is ordered -an SPEP and free light chains were ordered for evaluation of possible recurrence of her Hodgkin's lymphoma *abdominal pain -vague #Diarrhea/constipation -stool softener, now diarrhea -GI PCR not sent, patient has not had diarrhea #Nausea and Vomiting -patient says this is new since a month ago -gets relief w zofran but then comes back -appreciate GI seeing her #Dyspnea on Exertion - none currently. #IDDM -cont with home insulin regimen -glucose overall well controlled -A1c is 6.8 #HTN -Holding AMELIA-I and diuretic in the setting of renal failure -Norvasc was increased to 10 mg -cont BB #DVT prophylaxis: lmwh #plan: reviewed his care with nephrology, she is feeling better today, possible dc this in the next day or so. Subjective: Shelby is feeling better today. Objective: Vital Signs Temp Pulse Resp BP Pulse Ox 36.8 C 65 16 142/79 H 93 12/28/17 07:49 12/28/17 09:17 12/28/17 07:49 12/28/17 09:17 12/28/17 07:49 Laboratory Results 12/27/17 04:55 12/27/17 12/28/17 12/29/17 05:59 05:59 05:59 Intake Total 700 350 Balance 700 350 - Physical Exam Constitutional: appears nourished, not in pain, obese Eyes: PERRL Ears, Nose, Mouth, Throat: hearing normal Cardiovascular: regular rate and rhythym Respiratory: no respiratory distress Skin: warm Musculoskeletal: generalized weakness Neurologic: AAOx3 Psychiatric: interacting appropriately ICD10 Worksheet Patient Problems: Problems Problem Status Onset Acute kidney failure Acute History of diabetes mellitus Acute Chest pain Acute Hypoxia Acute Right flank pain Acute
--- NOTE | 2017-12-28 13:27 | SOAPPROG ---
JOEY Progress Note Assessment/Plan: Assessment/Plan: The patient is a 67 y/o F with a known h/o CKD who presented with diarrhea and anorexia as well as JOHNNY of unknown etiology. JOHNNY on CKD -baseline Cr 1.4-1.5 -Cr down to 2.0, plateaued and labs not yet drawn today -await new labs -monitor UO -renal US ordered -SPEP/UPEP and urine culture ordered -avoid NSAIDs and contrast Diarrhea -seen by GI -reportedly improved -unclear history and having some constipation as well HTN/vol -BP's at goal -on home meds of Coreg and amlodipine -hydralazine prn Will continue to follow. Please contact if ?'s. 12/28/17 14:17 Subjective: No labs drawn this AM. Patient having alternating constipation and diarrhea. Staying very hydrated. Has seen Dr. Sanchez in the past. Objective: Vital Signs Temp Pulse Resp BP Pulse Ox 36.8 C 65 16 142/79 H 93 12/28/17 07:49 12/28/17 09:17 12/28/17 07:49 12/28/17 09:17 12/28/17 07:49 Laboratory Results 12/27/17 04:55 12/27/17 12/28/17 12/29/17 05:59 05:59 05:59 Intake Total 700 350 Balance 700 350 Physical Exam - Physical Exam General Appearance: WD/WN, alert, no apparent distress, obese EENT: PERRL/EOMI Neck: non-tender, full range of motion, supple Respiratory: chest non-tender, lungs clear, normal breath sounds Cardiac/Chest: normal peripheral pulses, regular rate, rhythm, edema Abdomen: normal bowel sounds, non-tender, soft, distended Back: Normal inspection Skin: normal color, warm/dry, pallor Extremities: normal range of motion, non-tender, pedal edema Neuro/Psych: alert, normal mood/affect, oriented x 3 ICD10 Worksheet Patient Problems: Problems Problem Status Onset Acute kidney failure Acute History of diabetes mellitus Acute Chest pain Acute Hypoxia Acute Right flank pain Acute
[2017-12-28] MEDS: ASPIRIN 81 MG CHEWABLE TAB PO SCH (21:08)
[2017-12-28] MEDS: PRAVASTATIN SODIUM 40 MG TAB PO SCH (21:08)
[2017-12-29] MEDS: HEPARIN 5,000 UNIT/0.5 ML INJ SC SCH ×3 (05:45→21:06)
[2017-12-29] MEDS: ONDANSETRON DISINTEGRATING 4 MG TAB PO PRN ×2 (05:50→17:46)
[2017-12-29] MEDS: INSULIN GLARGINE 100 UNITS/ML UNIT SC SCH ×2 (09:02→21:05)
[2017-12-29] MEDS: ONDANSETRON DISINTEGRATING 4 MG TAB PO SCH ×3 (09:02→21:05)
[2017-12-29] MEDS: CARVEDILOL 6.25 MG TAB PO SCH ×2 (09:04→17:45)
[2017-12-29] MEDS: ALLOPURINOL 300 MG TAB PO SCH (09:04)
[2017-12-29] MEDS: CYANO/VITAMIN B12 1000 MCG TAB PO SCH (09:04)
[2017-12-29] MEDS: CHOLECALCIFEROL VIT D3 1,000 UNITS TAB PO SCH (09:04)
[2017-12-29] MEDS: PANTOPRAZOLE SODIUM 40 MG TAB PO SCH (09:05)
[2017-12-29] MEDS: buPROPion SR 100 MG TAB PO SCH (09:05)
[2017-12-29] MEDS: INSULIN LISPRO 100 UNIT/ML SC SCH ×3 (09:06→18:13)
[2017-12-29] MEDS: SENNOSIDES/DOCUSATE SODIUM TAB PO SCH ×2 (09:07→21:10)
[2017-12-29] MEDS: POLYETHYLENE GLYCOL 3350 17 GM PKT PO SCH (09:10)
--- NOTE | 2017-12-29 09:14 | SOAPPROG ---
SOAP Progress Note Assessment/Plan: Assessment/Plan: The patient is a 67 y/o F with a known h/o CKD who presented with diarrhea and anorexia as well as JOHNNY of unknown etiology and may be multifactorial given contrast, chronic diarrhea (>2 weeks), and NSAID use. JOHNNY on CKD -baseline Cr 1.4-1.5 -Cr down to 2.0, plateaued -renal US WNL -SPEP/UPEP and urine culture pending -avoid NSAIDs and contrast -ok from a renal perspective to discharge, would recommend labs in 1 week -will arrange f/u with [place] office in 4-6 weeks Diarrhea and nausea -may try avoiding dairy and stay on PPI -seen by GI, may need outpt f/u -reportedly improved -unclear history and having some constipation as well HTN/vol -BP's at goal -on home meds of Coreg and amlodipine -echo pending Please contact if ?'s, #[phone] 12/29/17 10:09 Subjective: Patient still feeling very nauseated overnight. No diarrhea, now constipated. Objective: Vital Signs Temp Pulse Resp BP Pulse Ox 36.7 C 79 16 152/88 H 89 L 12/29/17 08:00 12/29/17 08:00 12/29/17 08:00 12/29/17 08:00 12/29/17 08:00 Laboratory Results 12/29/17 04:43 12/28/17 12/29/17 12/30/17 05:59 05:59 05:59 Intake Total 350 Balance 350 Physical Exam - Physical Exam General Appearance: WD/WN, alert, mild distress, obese EENT: PERRL/EOMI Neck: non-tender, full range of motion, supple Respiratory: chest non-tender, lungs clear, normal breath sounds Cardiac/Chest: normal peripheral pulses, regular rate, rhythm, edema Abdomen: normal bowel sounds, non-tender, distended Back: Normal inspection Skin: normal color, warm/dry, pallor Extremities: normal range of motion, non-tender Neuro/Psych: alert, oriented x 3, depressed affect ICD10 Worksheet Patient Problems: Problems Problem Status Onset Acute kidney failure Acute History of diabetes mellitus Acute Chest pain Acute Hypoxia Acute Right flank pain Acute
--- NOTE | 2017-12-29 10:23 | HOSPPROG ---
Hospitalist Progress Note Assessment/Plan: 67y female with c/o N/V, JOHNNY on CKD. Her creatinine was 2.4, now plateau'd ~2. *Acute kidney injury - suspect multifactorial: pre-renal 2/2 volume depletion/ diarrhea, IV contrast, prior nsaids, ?ATN. Cr now stable ~2 (baseline 1.4-1.6) -a retroperitoneal ultrasound is ordered -SPEP and FLC's pending to eval for possible recurrence of her Hodgkin's lymphoma -echo to r/o cardiorenal component *abdominal pain - seems improved today #Diarrhea/constipation - diarrhea resolved, now constipated. States has intermittent bowel problems since partial colectomy years ago by Dr. Choi -GI PCR not sent as pt has not had recurrent diarrhea #Nausea and Vomiting - new over past month, gets relief w zofran but then comes back -appreciate GI seeing her, no further inpt w/u recommended -she should have outpt colonoscopy, as she is due for this, last c-scope >5 yrs ago and she had polyps -head CT to r/o central cause -cont PPI #IDDM - controlled, a1c 6.8% -cont with home insulin regimen #HTN -Holding AMELIA-I and diuretic in the setting of renal failure -Norvasc was increased to 10 mg -cont BB #DVT prophylaxis: lmwh #Dispo - cont inpt, possible d/c tomorrow if remains stable and maintaining po intake, currently very poor intake Subjective: Pt continues to feel nauseous. Has had some "spitting up", which she calls vomiting. No fevers/chills. No more diarrhea, now constipated, last BM 2-3 days ago. Denies mercer. C/O vision changes, but had recent eye surgery. Objective: Vital Signs Temp Pulse Resp BP Pulse Ox 36.7 C 79 16 152/88 H 89 L 12/29/17 08:00 12/29/17 08:00 12/29/17 08:00 12/29/17 08:00 12/29/17 08:00 Laboratory Results 12/29/17 04:43 12/28/17 12/29/17 12/30/17 05:59 05:59 05:59 Intake Total 350 Balance 350 - Physical Exam Constitutional: no apparent distress, obese Eyes: PERRL Ears, Nose, Mouth, Throat: moist mucous membranes Cardiovascular: regular rate and rhythym Respiratory: no respiratory distress, clear to auscultation Gastrointestinal: normoactive bowel sounds, soft, non-tender abdomen Skin: warm Musculoskeletal: full muscle strength Neurologic: AAOx3 Psychiatric: interacting appropriately ICD10 Worksheet Patient Problems: Problems Problem Status Onset Acute kidney failure Acute History of diabetes mellitus Acute Chest pain Acute Hypoxia Acute Right flank pain Acute
--- NOTE | 2017-12-29 12:38 | ECHO ---
[email or web address] [address] Main: [phone] Fax: Transthoracic Echocardiogram Name: SHARON LLANOS MR#: [id number] Study Date: 12/29/2017 Study Time: 09:36 AM Date of : 1950 Age: 67 year(s) Height: 172.7 cm (68 in.) Weight: 119.75 kg (264 lb.) BSA: 2.3 m2 Gender: Female Examination: Echo Indication: JOHNNY/CKD, Hx of HTN Image Quality: Contrast: Requested by: Pat Cain BP: 152 mmHg/88 mmHg Heart Rate: Rhythm: Normal sinus rhythm Indication: JOHNNY/CKD, Hx of HTN Procedure Staff Shade Cutter: Pierce Mooney RDCS Reading Physician: Bradly Alcala MD Requesting Provider: Conclusions: Moderate concentric LV hypertrophy. Normal global systolic LV function. The ejection fraction is estimated to be 65-70 %. Grade 1 diastolic dysfunction (abnormal relaxation). Elevated left ventricular filling pressures.. Normal RV function. Mild mitral annular calcification. Moderate mitral valve leaflet calcification is present. Trivial mitral valve regurgitation. No mitral stenosis is present. Mild aortic cusp calcification is noted. The pulmonary artery pressure is normal. Measurements: Chambers Valvular Assessment AV/MV Valvular Assessment TV/PV Normal Normal Normal Name Value Range Name Value Range Name Value Range Ao Sarah (MM): 3.2 cm (2.2 cm-3.7 AV Vmax: 1.40 m/s (1 m/s-1.7 PV Vmax: 0.73 m/s (0.6 m/s-0.9 cm) m/s) m/s) IVSd (2D): 1.2 cm (0.6 cm-1.1 AV maxP mmHg ( - ) PV PGmax: 2 mmHg ( - ) cm) LVOT Vmax: 1.02 m/s (0.7 m/s-1.1 LVDd (2D): 4.3 cm (3.9 cm-5.3 m/s) cm) MV E Vmax: 0.87 m/s ( - ) LVDs (2D): 2.6 cm (2.1 cm-4 MV A Vmax: 1.05 m/s ( - ) cm) MV E/A: 0.83 ( - ) LVPWd (2D): 1.3 cm ( - ) MV meanP mmHg ( - ) LVEF (2D): 71 (>=54 %) EF Range: 65-70 % Continued Measurements: Chambers Valvular Assessment AV/MV Patient: SHARON LLANOS Study Date: 12/29/2017 Page 1 of 2 09:36 AM Name Value Name Value LADs Lon.4 cm MV E' Septal: 0.04 m/s LA Area: 18.6 cm2 MV E/E' Septal: 19.60 LA Volume: 56 ml MV E/E' Lateral: 14.90 LA Volume Index: 24.3 ml/m2 MV VTI: 38.50 cm Findings: Left Ventricle: Normal size left ventricle. Moderate concentric LV hypertrophy. Normal global systolic LV function. The ejection fraction is estimated to be 65-70 %. No regional wall motion abnormality. Grade 1 diastolic dysfunction (abnormal relaxation). Elevated left ventricular filling pressures.. Right Ventricle: Normal size right ventricle. Normal RV function. Left Atrium: The left atrium is normal in size. Right Atrium: The right atrium is normal in size. Mitral Valve: Mild mitral annular calcification. Moderate mitral valve leaflet calcification is present. Trivial mitral valve regurgitation. No mitral stenosis is present. Aortic Valve: The aortic valve is tri-leaflet. Mild aortic cusp calcification is noted. There is no aortic valve regurgitation. No aortic valve stenosis is present. Tricuspid Valve: The tricuspid valve appears normal. Trivial tricuspid valve regurgitation. The pulmonary artery pressure is normal. Pulmonic Valve: The pulmonic valve is normal in appearance and function. Aorta: The aorta is normal. Pericardium: No pericardial effusion. (No Signature Object) Patient: SHARON LLANOS Study Date: 12/29/2017 Page 2 of 2 09:36 AM [id number]
[2017-12-29] MEDS: PRAVASTATIN SODIUM 40 MG TAB PO SCH (21:05)
[2017-12-29] MEDS: ASPIRIN 81 MG CHEWABLE TAB PO SCH (21:05)
[2017-12-30] MEDS: ONDANSETRON DISINTEGRATING 4 MG TAB PO PRN (05:24)
[2017-12-30] MEDS: HEPARIN 5,000 UNIT/0.5 ML INJ SC SCH (06:26)
[2017-12-30 07:26] VITALS: BP 154/74
[2017-12-30] MEDS: CARVEDILOL 6.25 MG TAB PO SCH (09:47)
[2017-12-30] MEDS: ALLOPURINOL 300 MG TAB PO SCH (09:48)
[2017-12-30] MEDS: PANTOPRAZOLE SODIUM 40 MG TAB PO SCH (09:49)
[2017-12-30] MEDS: CYANO/VITAMIN B12 1000 MCG TAB PO SCH (09:50)
[2017-12-30] MEDS: CHOLECALCIFEROL VIT D3 1,000 UNITS TAB PO SCH (09:50)
[2017-12-30] MEDS: buPROPion SR 100 MG TAB PO SCH (09:52)
[2017-12-30] MEDS: INSULIN LISPRO 100 UNIT/ML SC SCH ×2 (09:52→13:16)
[2017-12-30] MEDS: SENNOSIDES/DOCUSATE SODIUM TAB PO SCH (09:54)
[2017-12-30] MEDS: INSULIN GLARGINE 100 UNITS/ML UNIT SC SCH (09:54)
[2017-12-30] MEDS: ONDANSETRON DISINTEGRATING 4 MG TAB PO SCH (09:56)
[2017-12-30] MEDS: POLYETHYLENE GLYCOL 3350 17 GM PKT PO SCH (09:56)
--- NOTE | 2017-12-30 11:07 | SOAPPROG ---
SOAP Progress Note Assessment/Plan: Assessment/Plan: The patient is a 67 y/o F with a known h/o CKD who presented with diarrhea and anorexia as well as JOHNNY of unknown etiology and may be multifactorial given contrast, chronic diarrhea (>2 weeks), and NSAID use. JOHNNY on CKD -baseline Cr 1.4-1.5 -Cr down to 1.8, may be new baseline -renal US WNL -SPEP/UPEP shows small spike, no hematology consult needed -avoid NSAIDs and contrast -ok from a renal perspective to discharge, would recommend labs in 1 week -will arrange f/u with [place] office in 4-6 weeks Diarrhea and nausea -may try avoiding dairy and stay on PPI -seen by GI, may need outpt f/u for colonoscopy as per primary teaml HTN/vol -BP's at goal -on home meds of Coreg and amlodipine -echo shows normal EF some diastolic dysfunction Will sign off. Please contact if ?'s, #[phone] 12/30/17 11:05 Subjective: Still having intermittent nausea. UO good. Objective: Vital Signs Temp Pulse Resp BP Pulse Ox 37.4 C 70 12 154/74 H 85 L 12/30/17 07:22 12/30/17 07:22 12/30/17 07:22 12/30/17 07:22 12/30/17 07:22 Microbiology 12/28/17 14:25 Urine Culture - Final Urine,Clean Catch Escherichia Coli Three [place] Types 12/29/17 15:27 Gastrointestinal Tract Panel (PCR) - Final Stool No Organism Detected Laboratory Results 12/30/17 04:52 Physical Exam - Physical Exam General Appearance: WD/WN, alert, no apparent distress, obese EENT: PERRL/EOMI, normal ENT inspection, pharynx normal Neck: non-tender, full range of motion, supple Respiratory: chest non-tender, lungs clear, normal breath sounds Cardiac/Chest: regular rate, rhythm, edema Abdomen: normal bowel sounds, non-tender, soft Skin: normal color, warm/dry Extremities: normal range of motion, non-tender, pedal edema Neuro/Psych: alert, normal mood/affect, oriented x 3 ICD10 Worksheet Patient Problems: Problems Problem Status Onset Acute kidney failure Acute History of diabetes mellitus Acute Chest pain Acute Hypoxia Acute Right flank pain Acute
[2017-12-30] MEDS ORDERED: SUCRALFATE 1 GM TAB PO SCH (11:30)
--- NOTE | 2017-12-30 12:18 | ASMTLACE ---
LACE Length of stay for Answers: 7-13 days current admission Acuity / Level of Answers: Yes Care: Did the patient have an inpatient admission? Comorbidities - select Answers: Diabetes (uncontrolled or all that apply controlled) Moderate or severe liver or renal disease Other Notes: PE, kidney failure, ARF w/short term dialysis, marleny, lymph node dissection, intestinal polyp, # of Emergency department Answers: 3-4 visits in the last 6 months Score: 17 Date Signed: 12/30/2017 12:17 PM Electronically Signed By:Argelia Pan RN
--- NOTE | 2017-12-30 12:21 | ASMTCMCOM ---
CM Note CM Note Notes: Spoke w/pt, per PT pt qualifies for home care. She declines home care right now, will see how she feels at home and if she needs, she will call her PCP. CM available for anychanges. DC Plan: Independent Date Signed: 12/30/2017 12:20 PM Electronically Signed By:Argelia Pan RN
--- NOTE | 2017-12-30 16:37 | GDS ---
[f rep st] DISCHARGE SUMMARY DISCHARGE DIAGNOSES: 1. Acute kidney injury, improving. 2. Diarrhea followed by constipation. 3. Nausea and vomiting. 4. Insulin-dependent diabetes. 5. Hypertension. CONSULTANTS: 1. Dr. Collin Conde, Nephrology. 2. Dr. Robyn Guerrier, Gastroenterology. HISTORY: For details, please see history and physical dated December 22, 2017. In brief, the patient is a 67-year-old female with a history of diabetes and chronic kidney disease with a baseline creatinine of 1.4 to 1.6, who presents to the emergency department with complaints of diarrhea, nausea, and vom iting. Her creatinine was found to be elevated above her baseline. She was admitted to the hospital for further management. HOSPITAL COURSE: Patient admitted to the Medical/Surgical unit. She was given IV fluids, and her La six was held. Lisinopril was also held in the setting of acute kidney injury. A GI pathogen panel w as ordered, given her report of diarrhea, but she had no more diarrhea during the hospitalization. T hus, this study was not completed. Instead, she wound up feeling rather constipated, and a bowel reg imen was ordered. Nephrology consult was obtained, and it was felt her acute on chronic kidney injur y was likely multifactorial, possibly a prerenal component in the setting of ongoing diarrhea and vol ume depletion. In addition, she recently received IV contrast for a CT scan as well as history of NS AID use. An echocardiogram showed normal LV function, ruling out a cardiorenal syndrome. Renal ultr asound was also normal with no evidence of hydronephrosis and no renal atrophy. An SPEP was sent and will be followed up by Nephrology. Her creatinine came down a little bit to 1.8 at the time of disc harge. This may be her new baseline. [facility] will arrange close followup in their [facility] office within the next month. As for her history of diarrhea and ongoing nausea, GI consultation was obtained. As above, her diarrhea resolved. No further GI workup was recommended in the inpatien t setting. I recommend she follow up with [facility] the [facility] for consideration of upper endoscopy if her symptoms persist. CT head was performed, which did not reveal a central source of her symptoms. Though her symptoms persisted, they did improve a fair amount, and she was able to juan manuel erate a diet prior to discharge. She has been managed with Zofran, and Carafate was added. In addit ion, she has been receiving a PPI. Her blood sugars remained fairly well controlled. With respect t o her antihypertensive medications, we will continue to hold her AMELIA inhibitor and Lasix in the setti ng of worsening renal failure. Norvasc was increased to 10 mg daily, and she is continued on her Cor eg. She should follow up with her stone carriage operator to determine if and when she should resume her AMELIA in hibitor or diuretic therapy. DISPOSITION: Patient is discharged home in stable condition. FOLLOWUP: 1. Dr. Collin Conde, [facility]. 2. Dr. Robyn Guerrier, [facility]. 3. Dr. Huma El, Primary Care. DISCHARGE MEDICATIONS: Please see [facility] completed outpatient medication list. New medications on discharge include Norvasc 10 mg p.o. daily #30 no refills, Zofran 4 mg p.o. q.6 hours p.r.n. #30 no refills, Protonix 40 mg p.o. daily #30 no refills, and sucralfate 1 g p.o. a.c. HS #120 no refills. She will continue all other outpatient medications as previously prescribed with the exception of dis continued medications, which include Lasix and lisinopril, which can be resumed at the discretion of her stone carriage operator or primary care physician. /[id number]/MODL
== END 2017-12-30 13:04 | disposition home or self-care (01) | DRG 684 ==
LOC: F3E 13:28 → OBSVTOIN 12-23 12:37
PROVIDERS: ADMIT Family Medicine; ATTEND Family Medicine
DX: N17.9 Acute kidney failure, unspecified (principal); E86.0 Dehydration; R19.7 Diarrhea, unspecified; K59.00 Constipation, unspecified; E11.21 Type 2 diabetes mellitus with diabetic nephropathy; I12.9 Hypertensive chronic kidney disease with stage 1 through stage 4 chronic kidney disease, or unspecified chronic kidney disease; N18.3 Chronic kidney disease, stage 3 (moderate); E78.5 Hyperlipidemia, unspecified; G47.33 Obstructive sleep apnea (adult) (pediatric); E21.1 Secondary hyperparathyroidism, not elsewhere classified; E66.01 Morbid (severe) obesity due to excess calories; Z66 Do not resuscitate; Z86.711 Personal history of pulmonary embolism; Z79.4 Long term (current) use of insulin
CPT/HCPCS: 86334-90; 97110-GP; 97112-GP; 97116-GP; 97161-GP; G0378; G8978-GP-CI; G8979-GP-CH; J0360; J1644; J1815; J2405

== ENCOUNTER 2018-01-14 10:43 | Emergency (ER) | payer OTHER ==
--- NOTE | 2018-01-14 12:03 | EDPHY ---
H & P Stated Complaint: constipated for 8 days Time Seen by Provider: 01/14/18 11:05 HPI/ROS: CHIEF COMPLAINT: No bowel movement in 6 days HISTORY OF PRESENT ILLNESS: 67-year-old female presents with no bowel movement in 6 days. She was recently admitted for constipation and ongoing nausea. She was discharged home on Phenergan. She followed up with GI in the office and the plan is for endoscopy later this week to evaluate the etiology of the ongoing nausea. Taking laxatives at home without ability to have a bowel movement. Feels urge to have a bowel movement, but has been able to do so. Associated with moderate abdominal cramping. REVIEW OF SYSTEMS: complete 10 point ROS negative except at noted in the HPI - Personal History Current Tetanus/Diphtheria Vaccine: Yes Current Tetanus Diphtheria and Acellular Pertussis (TDAP): Yes Tetanus Vaccine Date: WITHIN 10 years - Medical/Surgical History Hx Asthma: No Hx Chronic Respiratory Disease: No Hx Diabetes: Yes Hx Cardiac Disease: No Hx Renal Disease: Yes Hx Cirrhosis: No Hx Alcoholism: No Hx HIV/AIDS: No Hx Splenectomy or Spleen Trauma: No Other PMH: PE, Kidney failure, DM 2, ARF (W/short term diaylsis),. [place], lymph node dissection, intestinal polyp, tonsillectomy, ectopic , shoulder surg,. Baseline creat 1.2, HTN - Social History Smoking Status: Former smoker - Physical Exam Exam: General Appearance: Alert, pleasant Eyes: Pupils equal and round, no conjunctival pallor ENT, Mouth: Mucous membranes moist Neck: Normal inspection Respiratory: Lungs are clear to auscultation Cardiovascular: Regular rate and rhythm Gastrointestinal: Abdomen is soft and nontender Rectal: Fecal impaction Neurological: A&O, nonfocal, normal gait Skin: Warm and dry Extremities: Normal inspection Psychiatric: Mood and affect normal Constitutional: Initial Vital Signs Temperature (C) 36.5 C 01/14/18 10:49 Heart Rate 70 01/14/18 10:49 Respiratory Rate 16 01/14/18 10:49 Blood Pressure 184/87 H 01/14/18 10:49 O2 Sat (%) 92 01/14/18 10:49 O2 Delivery Mode Room Air Allergies/Adverse Reactions: Sulfa (Sulfonamide Antibiotics) Allergy (Severe, Verified 01/14/18 10:54) Rash CANDIED FRUIT IN SPUMONI Allergy (Severe, Uncoded 01/14/18 10:54) Other-Enter Comments Home Medications: Medication Instructions Recorded Allopurinol [Allopurinol 300 MG 300 mg PO DAILY 09/11/12 (RX)] Lovastatin [Mevacor] 40 mg PO HS 09/11/12 Cholecalciferol Vit D3 [Vitamin D3 1,000 units PO DAILY 04/30/17 (*)] Insulin Glargine,Hum.rec.anlog 25 unit SQ DAILY 04/30/17 [Basaglar Kwikpen U-100] Insulin Glargine,Hum.rec.anlog 50 unit SQ HS 04/30/17 [Basaglar Kwikpen U-100] Albuterol [Proventil Neb] 3 ml IH Q2HRS PRN deyvial 05/07/17 Carvedilol [Coreg (*)] 6.25 mg PO BIDMEAL tab 05/07/17 Bupropion HCl [Bupropion HCl Sr] 200 mg PO DAILY 08/29/17 Cyanocobalamin (Vitamin B-12) 2,500 mcg PO DAILY 08/29/17 [Vitamin B12] Aspirin [Aspirin 81mg (*)] 81 mg PO HS 12/22/17 Insulin Aspart [novoLOG] 0 unit SC TIDMEAL 12/22/17 Nateglinide [Starlix 120 mg (*)] 60 mg PO AC 12/23/17 Ondansetron Odt [Zofran Odt 4 mg 4 mg PO Q6H PRN #30 tab 12/30/17 (*)] Pantoprazole Sodium [Protonix 40mg 40 mg PO DAILY #30 tab 12/30/17 (*)] Sucralfate [Carafate 1 GM (*)] 1 gm PO ACHS #120 tab 12/30/17 amLODIPine BESYLATE [Norvasc 10 mg 10 mg PO DAILY #30 tab 12/30/17 (*)] Medical Decision Making ED Course/Re-evaluation: Large amount of stool manually disimpacted by me. Pelican better after disimpaction. A soapsuds enema was given, without further bowel movement. Symptoms completely resolved after disimpaction and ready for discharge home. Abdomen soft and nontender on discharge. Will follow up with GI next week for further evaluation of nausea and intermittent vomiting. Differential Diagnosis: Differential diagnosis includes though it is not limited to appendicitis, cholecystitis, diverticulitis, pyelonephritis, bowel perforation, small bowel obstruction. Departure - Departure Disposition: Home, Routine, Self-Care Clinical Impression: Constipation Qualifiers: Constipation type: slow transit constipation Qualified Code(s): K59.01 - Slow transit constipation Condition: Good Instructions: Constipation (ED), High Fiber Diet (ED), Fleet Enema (ED) Additional Instructions: Follow-up with GI this week. Return for worsening symptoms or any concerns. Referrals: Huma El MD [Primary Care Provider] - As per Instructions
[2018-01-14 13:05] VITALS: BP 139/89
== END 2018-01-14 13:04 | disposition home or self-care (01) ==
DX: K59.01 Slow transit constipation (principal); I10 Essential (primary) hypertension; E11.9 Type 2 diabetes mellitus without complications; Z79.4 Long term (current) use of insulin; Z79.82 Long term (current) use of aspirin; Z87.891 Personal history of nicotine dependence

== ENCOUNTER → 2018-10-03 | Outpatient (CLI) | payer OTHER | LOC: FLAB 14:26 | PROVIDERS: ATTEND Family Medicine | DX: M51.36 Other intervertebral disc degeneration, lumbar region (principal); M51.37 Other intervertebral disc degeneration, lumbosacral region; M53.3 Sacrococcygeal disorders, not elsewhere classified ==